=== PATIENT | female | born 1950 | race Caucasian/White ===

== ENCOUNTER 2019-05-27 15:11 | Emergency (ER) | payer MEDICARE, OTHER, SELFPAY ==
[2019-05-27 15:25] VITALS: BP 146/83; PULSE 84; RESP 24; TEMP 36.6; O2SAT 93; BMI 36.6
--- NOTE | 2019-05-27 15:33 | DI.RAD.S_ITS ---
PROCEDURE: XR CHEST 2V INDICATIONS: shortness of breath TECHNIQUE: 2 views of the chest were acquired. COMPARISON: [facility], CT, CHEST WITH CONTRAST, 10/22/2005, 11:24. FINDINGS: Surgical changes and devices: Lumbar fixation hardware is partially seen. Lungs and pleura: Mild, streaky opacities are seen at the lung bases. Interstitial prominence is seen. No pleural effusions or pneumothorax. Mediastinum: Mediastinal contours are normal. Heart size is normal. Bones and chest wall: No suspicious bony abnormalities. Age-appropriate bony degenerative changes are seen. Soft tissues appear unremarkable. IMPRESSION: Interstitial prominence is seen throughout. The interstitial prominence is nonspecific, yet may be related to pulmonary edema. Dictated by: Lee Silverio M.D. on 05/27/2019 at 15:30 Approved by: Lee Silverio M.D. on 05/27/2019 at 15:31
[2019-05-27 15:39] VITALS: BP 158/78; PULSE 78; RESP 24; O2SAT 96
[2019-05-27 15:58] LABS: Add Manual Diff / Slide Review NO; Basophils Absolute Auto 100 /uL (0-100); Basophils Percent Auto 1.1 % (0-2); Eosinophils Absolute Auto 300 /uL (0-450); Eosinophils Percent Auto 4.2 % (2-4); Hematocrit 38.4 % (36-46); Hemoglobin 12.8 g/dL (12.0-16.0); Lymphocytes Absolute Auto 1800 /uL (1100-4500); Lymphocytes Percent Auto 29.4 % (25-40); Mean Corpuscular HGB Conc 33.4 % (30-36); Mean Corpuscular Hemoglobin 29.2 PG (26-34); Mean Corpuscular Volume 87.3 fL (80-100); Monocytes Absolute Auto 500 /uL (0-900); Monocytes Percent Auto 8.8 % (3-14); Neutrophils Absolute Auto 3500 /uL (1500-7000); Neutrophils Percent Auto 56.5 % (50-75); Platelet Count 254 X10^3/uL (150-400); Red Cell Distribution Width 13.3 % (11.6-14.8); White Blood Cell Count 6.1 X10^3/uL (4.5-11.0)
--- NOTE | 2019-05-27 15:59 | ED_ITS ---
HPI - SOB/Dyspnea General Chief Complaint: Shortness of Breath/Dyspnea Stated Complaint: cant breath Time Seen by Provider: 05/27/19 15:44 Source: patient Mode of arrival: ambulatory Limitations: no limitations History of Present Illness Patient is a 69-year-old female with history of mycoplasma pneumonia in 2002, she has had persistent shortness of breath since and. She was previously on Biaxin daily and till 2014 she says that is when she felt the best. She saw server security administrator in [place] who refused her back on antibiotics daily. She presents today because she feels as though she has been having fevers chills and sweats she says for a month. She has a book documented of a temperature every single day. She actually is noted to have fever of 101 twice over the last week. She says that she has a mild productive cough and sometimes coughs up yellow sputum. Her breathing is better when she is lying flat and worse when she is sitting up. She has no chest pain. MD Complaint: shortness of breath and cough Relieving factors: other (Lying flat) Exacerbating factors: exertion Related Data Home Medications Medication Instructions Recorded Confirmed acetaminophen 325 mg PO TID #0 06/17/16 albuterol sulfate [Ventolin HFA] 1 puff INH Q4HP PRN #0 06/17/16 celecoxib 200 mg PO BIDCC #0 cap 06/17/16 cholecalciferol (vitamin D3) 50,000 unit PO QWEEK #0 cap 06/17/16 clonazepam [Klonopin] 0.5 mg PO TID #0 06/17/16 conjugated estrogens [Premarin] 0.3 mg PO QDAY #30 tab 06/17/16 levothyroxine [Synthroid] 50 mcg PO QAM #0 tab 06/17/16 liothyronine [Cytomel] 10 mcg PO QDAY #0 tab 06/17/16 pregabalin [Lyrica] 100 mg PO HS #0 06/17/16 Previous Rx's Medication Instructions Recorded doxycycline hyclate 100 mg PO BID #14 cap 05/27/19 Allergies Allergy/AdvReac Type Severity Reaction Status Date / Time adhesive [ADHESIVE] Allergy Unknown RASH Verified 05/27/19 15:25 rofecoxib [From VIOXX] Allergy Unknown MY LEGS Verified 05/27/19 15:25 FELT LIKE THEY COULDNT MOVE Sulfa (Sulfonamide Allergy Unknown RASH Verified 05/27/19 15:25 Antibiotics) [SULFA (SULFONAMIDE ANTIBIOTICS)] Review of Systems Review of Systems GENERAL: Denies chills, fatigue, malaise, fever, sweats, travel HEENT: Denies sinus pain, ear pain, sore throat, difficulty swallowing, neck pain RESPIRATORY: See HPI CARDIOVASCULAR: Denies chest pain, palpitations, orthopnea, edema GASTROINTESTINAL: Denies nausea, vomiting, abdominal pain, diarrhea, constipation, melena. : Denies dysuria, frequency, incontinence, hematuria, urinary retention, flank pain. MUSCULOSKELETAL: Denies weakness, joint pain, or bony pain SKIN: No rash, no erythema, no pruritus NEUROLOGIC: Denies weakness, dizziness, headache, numbness, change in speech, confusion PSYCHIATRIC: No concerning psychosocial issues. 12 point review of systems is negative except for those stated above and HPI [facility] Medical History Mycoplasma infection (Acute) Social History Smoking Status: Former smoker Social History Smoking Status: Former smoker Exam Initial Vital Signs Initial Vital Signs: Vital Signs Temperature 97.8 F 05/27/19 15:25 Pulse Rate 84 05/27/19 15:25 Respiratory Rate 24 05/27/19 15:25 Blood Pressure 146/83 H 05/27/19 15:25 Pulse Oximetry 93 05/27/19 15:25 GENERAL: Well-appearing, lying flat HEENT: Head atraumatic,EOMI, pupils reactive, face symmetric, moist mucous membr anes CARDIOVASCULAR: Regular rate and rhythm without murmurs, rubs or gallops. RESPIRATORY: Rales right-sided no respiratory distress no wheezes speaks in full sentences ABDOMEN: Soft, nontender. Normoactive bowel sounds all 4 quadrants. No guarding or rebound. EXTREMITIES: Normal range of motion, no clubbing or edema. Neurovascularly intact NEUROLOGICAL: Alert and oriented x4.Normal gait and speech. Cranial nerves II through XII grossly intact. SKIN: Warm, dry, no laceration, no petechiae, no rashes or lesions. Course Orders Ordered: ED Orders 05/27/19 15:33 XR chest 2V Stat EKG-12 Lead Stat Measure peak expiratory flow ONCE RT Consult Eval and Treat Now 05/27/19 15:40 B Type Natriuretic Peptide Stat Complete Blood Count AUTO DIFF Stat Comprehensive Metabolic Panel Stat Lactate (Lactic Acid) Stat Troponin & CK Cardiac Panel Stat Discontinued Medications Doxycycline Hyclate (Vibramycin) 100 mg PO NOW ONE Stop: 05/27/19 17:49 Last Admin: 05/27/19 17:54 Dose: 100 mg Vital Signs - 8 hr 05/27/19 15:25 05/27/19 15:39 05/27/19 17:30 Temperature 97.8 F Pulse Rate 84 78 70 Respiratory Rate 24 24 22 Blood Pressure 146/83 H Blood Pressure [Right Arm] 158/78 H 160/70 H Pulse Oximetry 93 96 95 05/27/19 17:57 Temperature Pulse Rate 70 Respiratory Rate 18 Blood Pressure 160/70 H Blood Pressure [Right Arm] Pulse Oximetry 94 MDM - SOB/Dyspnea Lab Data Attestation: I reviewed the patient's lab results. Result diagrams: 05/27/19 15:40 05/27/19 15:40 Lab Results 05/27/19 05/27/19 05/27/19 Range/Units 15:40 15:40 15:40 WBC 6.1 (4.5-11.0) X10^3/uL RBC 4.40 (4.0-5.2) X10^6/uL Hgb 12.8 (12.0-16.0) g/dL Hct 38.4 (36-46) % MCV 87.3 (80-100) fL MCH 29.2 (26-34) PG MCHC 33.4 (30-36) % RDW 13.3 (11.6-14.8) % Plt Count 254 (150-400) X10^3/uL Neut % (Auto) 56.5 (50-75) % Lymph % (Auto) 29.4 (25-40) % Collin % (Auto) 8.8 (3-14) % Eos % (Auto) 4.2 H (2-4) % Baso % (Auto) 1.1 (0-2) % Neut # (Auto) 3500 (8823-3744) /uL Lymph # (Auto) 1800 (5270-0222) /uL Collin # (Auto) 500 (0-900) /uL Eos # (Auto) 300 (0-450) /uL Baso # (Auto) 100 (0-100) /uL Sodium 142 (137-145) mmol/L Potassium 4.0 (3.4-5.1) mmol/L Chloride 105 (98-107) mmol/L Carbon Dioxide 28 (22-32) mmol/L BUN 15 (7-17) mg/dL Creatinine 0.90 (0.52-1.04) mg/dL Estimated GFR > 60.0 (>60) mL/min BUN/Creatinine Ratio 16.7 (6-22) Glucose 101 (80-110) mg/dL Lactate 1.0 (0.7-2.1) mmol/L Calcium 10.1 (8.4-10.2) mg/dL Total Bilirubin 0.4 (0.2-1.3) mg/dL AST 33 (14-36) IU/L ALT 26 (9-52) IU/L Alkaline Phosphatase 97 (38-126) U/L Total Creatine Kinase (30-135) U/L CK-MB (CK-2) CK-MB (CK-2) Rel Index Troponin I (0.01-0.034) ng/mL B-Natriuretic Peptide < 100 (<100) Total Protein 8.1 (6.3-8.2) g/dL Albumin 4.4 (3.5-5.0) g/dL Globulin 3.7 (1.7-4.1) g/dL Albumin/Globulin Ratio 1.2 (1.0-2.8) 05/27/19 Range/Units 15:40 WBC (4.5-11.0) X10^3/uL RBC (4.0-5.2) X10^6/uL Hgb (12.0-16.0) g/dL Hct (36-46) % MCV (80-100) fL MCH (26-34) PG MCHC (30-36) % RDW (11.6-14.8) % Plt Count (150-400) X10^3/uL Neut % (Auto) (50-75) % Lymph % (Auto) (25-40) % Collin % (Auto) (3-14) % Eos % (Auto) (2-4) % Baso % (Auto) (0-2) % Neut # (Auto) (3107-1069) /uL Lymph # (Auto) (2943-4400) /uL Collin # (Auto) (0-900) /uL Eos # (Auto) (0-450) /uL Baso # (Auto) (0-100) /uL Sodium (137-145) mmol/L Potassium (3.4-5.1) mmol/L Chloride (98-107) mmol/L Carbon Dioxide (22-32) mmol/L BUN (7-17) mg/dL Creatinine (0.52-1.04) mg/dL Estimated GFR (>60) mL/min BUN/Creatinine Ratio (6-22) Glucose (80-110) mg/dL Lactate (0.7-2.1) mmol/L Calcium (8.4-10.2) mg/dL Total Bilirubin (0.2-1.3) mg/dL AST (14-36) IU/L ALT (9-52) IU/L Alkaline Phosphatase (38-126) U/L Total Creatine Kinase 44 (30-135) U/L CK-MB (CK-2) TNP CK-MB (CK-2) Rel Index TNP Troponin I < 0.012 (0.01-0.034) ng/mL B-Natriuretic Peptide (<100) Total Protein (6.3-8.2) g/dL Albumin (3.5-5.0) g/dL Globulin (1.7-4.1) g/dL Albumin/Globulin Ratio (1.0-2.8) Imaging Data Chest x-ray: Radiologist's impression: PROCEDURE: XR CHEST 2V INDICATIONS: shortness of breath TECHNIQUE: 2 views of the chest were acquired. COMPARISON: [facility], CT, CHEST WITH CONTRAST, 10/22/2005, 11:24. FINDINGS: Surgical changes and devices: Lumbar fixation hardware is partially seen. Lungs and pleura: Mild, streaky opacities are seen at the lung bases. Interstitial prominence is seen. No pleural effusions or pneumothorax. Mediastinum: Mediastinal contours are normal. Heart size is normal. Bones and chest wall: No suspicious bony abnormalities. Age-appropriate bony degenerative changes are seen. Soft tissues appear unremarkable. IMPRESSION: Interstitial prominence is seen throughout. The interstitial prominence is nonspecific, yet may be related to pulmonary edema. Dictated by: Lee Silverio M.D. on 05/27/2019 at 15:30 ECG Data Attestation: I personally reviewed and interpreted this ECG as follows: Prior ECG tracings: not available for review Interpretation: Minus rhythm rate 75 here [place] [address] changes no T-wave inversions no priors to compare MDM Narrative Medical decision making narrative: Patient overall is not septic there is no acute pneumonia. She does have documented fever of 101 in her book. I will put her on doxycycline which should cover mycoplasma and other atypical pneumonia. At this time she is not septic. Discharge Plan Departure Patient Disposition: Home Clinical Impression: Atypical pneumonia Discharge Date/Time: 05/27/19 17:59 Interventions: ED Discharge Assessment Last Done: 05/27/19 17:57 Instructions: Atypical Pneumonia Activity Restrictions/Additional Instructions: *You have been diagnosed with atypical pneumonia *What to do: At this time blood work is reassuring x-ray is also clear. Antibiotic will cover for mycoplasma and other organisms *Continue to take medications as directed Doxycycline 100 mg twice a day for 7 days *Follow up with your primary care provider in 2-3 days *Return to ER if you should have increasing shortness of breath, fevers, weakness or any new, worsening or concerning symptoms Prescriptions: New doxycycline hyclate 100 mg capsule 100 mg PO BID Qty: 14 RF: 0 No Action celecoxib 200 MG capsule 200 mg PO BIDCC Qty: 0 RF: 0 clonazepam [Klonopin] 0.5 MG tablet 0.5 mg PO TID Qty: 0 RF: 0 pregabalin [Lyrica] 100 MG capsule 100 mg PO HS Qty: 0 RF: 0 cholecalciferol (vitamin D3) 50,000 UNIT capsule 50,000 unit PO QWEEK Qty: 0 RF: 0 liothyronine [Cytomel] 5 MCG tablet 10 mcg PO QDAY Qty: 0 RF: 0 levothyroxine [Synthroid] 50 MCG tablet 50 mcg PO QAM Qty: 0 RF: 0 albuterol sulfate [Ventolin HFA] 90 MCG/PUFF HFA aerosol inhaler 1 puff INH Q4HP PRNQty: 0 RF: 0 conjugated estrogens [Premarin] 0.3 MG tablet 0.3 mg PO QDAY Qty: 30 RF: 0 acetaminophen 325 MG tablet 325 mg PO TID Qty: 0 RF: 0 Referrals: Brandi Nina DO [Primary Care Provider] -
[2019-05-27 16:09] LABS: Alanine Aminotransferase 26 IU/L (9-52); Albumin 4.4 g/dL (3.5-5.0); Albumin Globulin Ratio 1.2 (1.0-2.8); Alkaline Phosphatase 97 U/L (38-126); Aspartate Aminotransferase 33 IU/L (14-36); BUN Creatinine Ratio 16.7 (6-22); Bilirubin Total 0.4 mg/dL (0.2-1.3); Blood Urea Nitrogen 15 mg/dL (7-17); Calcium 10.1 mg/dL (8.4-10.2); Carbon Dioxide 28 mmol/L (22-32); Chloride 105 mmol/L (98-107); Estimated Glomerular Filt Rate > 60.0 mL/min (>60); Globulin 3.7 g/dL (1.7-4.1); Glucose 101 mg/dL (80-110); HEMOLYSIS < 15 (0-50); Sodium 142 mmol/L (137-145); Total Protein 8.1 g/dL (6.3-8.2)
[2019-05-27 16:29] LABS: B Type Natriuretic Peptide < 100 (<100)
[2019-05-27 17:20] LABS: Creatine Kinase 44 U/L (30-135)
[2019-05-27 17:30] VITALS: BP 160/70; PULSE 70; RESP 22; O2SAT 95
[2019-05-27 17:33] LABS: Troponin I < 0.012 ng/mL (0.01-0.034)
[2019-05-27] MEDS: DOXYCYCLINE HYCLATE 100 MG TABLET PO (17:54)
[2019-05-27 17:57] VITALS: BP 160/70; PULSE 70; RESP 18; O2SAT 94
== END 2019-05-27 17:59 | disposition home or self-care (01) ==
PROVIDERS: Emergency Provider Emergency Medicine; PCP Family Medicine
DX: J18.9 Pneumonia, unspecified organism (principal); R06.02 Shortness of breath
CPT/HCPCS: 36591; 71046; 80053; 82550; 83605; 83880; 84484; 85025; 93005; 99283; 99285

== ENCOUNTER 2019-09-20 16:08 | Emergency (ER) | payer MEDICARE, OTHER, SELFPAY ==
[2019-09-20 16:10] VITALS: BP 198/79; PULSE 62; RESP 18; TEMP 36.6; O2SAT 99; BMI 36.8
--- NOTE | 2019-09-20 16:48 | DI.RAD.S_ITS ---
PROCEDURE: XR FINGER LT MIN 2V INDICATIONS: L index finger puncture wound TECHNIQUE: AP hand, 2 views of the left index finger(s) acquired. COMPARISON: None. FINDINGS: Bones: No acute fractures or dislocations. No suspicious bony lesions. Background degenerative changes of the distal interphalangeal joint are noted. Soft tissues: There is soft tissue swelling of the left index finger most pronounced near the tip of the finger without evidence for soft tissue gas or radiopaque soft tissue foreign body. No suspicious soft tissue calcifications. IMPRESSION: Left index finger soft tissue swelling without radiopaque soft tissue foreign bodies identified. No acute osseous abnormality seen. Dictated by: Jose J Trent M.D. on 09/20/2019 at 17:24 Approved by: Jose J Trent M.D. on 09/20/2019 at 17:26
--- NOTE | 2019-09-20 18:04 | ED_ITS ---
HPI - Wound/Laceration <Rivka Garcia COMMISSIONING MANAGER - Last Filed: 09/20/19 20:14> General Chief Complaint: Wound/Laceration Stated Complaint: cut finger- left index Time Seen by Provider: 09/20/19 16:48 Source: patient Mode of arrival: Family Vehicle Limitations: no limitations History of Present Illness HPI narrative: 69-year-old female presents emergency department as requested by the clinic for an x-ray to her finger. She states she was cutting the spine out of a turkey when she stepped the knife through her left index finger. She states the wrist taking a knife when she stubbed her finger. Bleeding controlled, she denies any numbness or tingling. Patient denies any erythema, as if, vomiting, diarrhea, fevers, chills, other concerns. Patient states she is up-to-date on her Tdap. Related Data Home Medications Medication Instructions Recorded Confirmed acetaminophen 325 mg PO TID #0 06/17/16 albuterol sulfate [Ventolin HFA] 1 puff INH Q4HP PRN #0 06/17/16 celecoxib 200 mg PO BIDCC #0 cap 06/17/16 cholecalciferol (vitamin D3) 50,000 unit PO QWEEK #0 cap 06/17/16 clonazepam [Klonopin] 0.5 mg PO TID #0 06/17/16 conjugated estrogens [Premarin] 0.3 mg PO QDAY #30 tab 06/17/16 levothyroxine [Synthroid] 50 mcg PO QAM #0 tab 06/17/16 liothyronine [Cytomel] 10 mcg PO QDAY #0 tab 06/17/16 pregabalin [Lyrica] 100 mg PO HS #0 06/17/16 Previous Rx's Medication Instructions Recorded doxycycline hyclate 100 mg PO BID #14 cap 05/27/19 cephalexin 500 mg PO QID 7 Days #28 cap 09/20/19 Allergies Allergy/AdvReac Type Severity Reaction Status Date / Time adhesive [ADHESIVE] Allergy Unknown RASH Verified 09/20/19 16:52 rofecoxib [From VIOXX] Allergy Unknown MY LEGS Verified 09/20/19 16:52 FELT LIKE THEY COULDNT MOVE Sulfa (Sulfonamide Allergy Unknown RASH Verified 09/20/19 16:52 Antibiotics) [SULFA (SULFONAMIDE ANTIBIOTICS)] Review of Systems <LOGAN Arnold - Last Filed: 09/20/19 20:14> Review of Systems Narrative: REVIEW OF SYSTEMS: GENERAL: Denies fever or chills. HENT: Denies head trauma. EYE: Denies double vision or vision loss. CARDIOVASCULAR: Denies syncope. MUSCULOSKELETAL: Denies weakness, or deformities. INTEGUMENTARY: Complains of laceration to finger, see HPI. NEURO: Denies numbness or tingling. Patient History <LOGAN Arnold - Last Filed: 09/20/19 20:14> Medical History Mycoplasma infection (Acute) Social History Smoking Status: Former smoker alcohol intake frequency: 0-2 drinks per day Substance Use Type: does not use Exam <LOGAN Arnold - Last Filed: 09/20/19 20:14> Initial Vital Signs Initial Vital Signs: Vital Signs Temperature 98 F 09/20/19 16:10 Pulse Rate 62 09/20/19 16:10 Respiratory Rate 18 09/20/19 16:10 Blood Pressure 198/79 H 09/20/19 16:10 Pulse Oximetry 99 09/20/19 16:10 PHYSICAL EXAMINATION: GENERAL: Well groomed, alert, and cooperative. Answers questions promptly and appropriately. Vital signs noted. HENT: Normocephalic, atraumatic. RESPIRATORY: Normal respiratory rate, trachea midline, airway patent. No stridor, nasal flaring or accessory muscle use. MUSCULOSKELETAL: Normal gait and coordination. Equal tone and mass bilaterally. EXTREMITIES: CMS intact. Moves all extremities. SKIN: Warm, dry, soft, appropriate color for ethnicity. There is a 1.5 cm laceration noted to lateral and medial aspect of finger, no bleeding during examination. There is a 1 cm laceration noted to the top of left index finger. Ecchymosis noted to tip of finger, full range of motion against resistance for DIP and MIP joint. NEURO: Alert and Oriented X 3. Good coordination. PSYCH: Appropriate affect and mood. <Mimi Reilly DO - Last Filed: 09/22/19 08:08> Initial Vital Signs Initial Vital Signs: Vital Signs Temperature 98 F 09/20/19 16:10 Pulse Rate 62 09/20/19 16:10 Respiratory Rate 18 09/20/19 16:10 Blood Pressure 198/79 H 09/20/19 16:10 Pulse Oximetry 99 09/20/19 16:10 Course <LOGAN Arnold - Last Filed: 09/20/19 20:14> Course Course Narrative: Patient's wound was irrigated with 300ml of normal saline. The area was repaired with Steri-Strips, splint was placed on the wound and it was dressed with gauze. She was given a dose of antibiotics in the emergency department. Orders Ordered: Discontinued Medications Cephalexin HCl (Keflex) 500 mg PO NOW ONE Stop: 09/20/19 18:56 Last Admin: 09/20/19 19:15 Dose: 500 mg Documented by: LEYDA Consultations Consultation #1: Patient staffed with Dr. Reilly. Vital Signs Vital signs: Vital Signs - 8 hr 09/20/19 16:10 09/20/19 19:35 Temperature 98 F Pulse Rate 62 66 Respiratory Rate 18 16 Blood Pressure 198/79 H 148/75 H Pulse Oximetry 99 99 <Mimi Reilly DO - Last Filed: 09/22/19 08:08> Orders Ordered: Discontinued Medications Cephalexin HCl (Keflex) 500 mg PO NOW ONE Stop: 09/20/19 18:56 Last Admin: 09/20/19 19:15 Dose: 500 mg Documented by: LEYDA Vital Signs Vital signs: Vital Signs - 8 hr 09/20/19 16:10 09/20/19 19:35 Temperature 98 F Pulse Rate 62 66 Respiratory Rate 18 16 Blood Pressure 198/79 H 148/75 H Pulse Oximetry 99 99 MDM - Wound/Laceration <LOGAN Arnold - Last Filed: 09/20/19 20:14> Medical Records Attestation: I reviewed the patient's medical records. Lab Data Attestation: I reviewed the patient's lab results. Imaging Data Finger XR: Radiologist's impression: [address] [address] XRay Report Signed Patient: Jocelin Lopez [facility]#: [id number] : 1Acct:[id number] Age/Sex: 69 / FDate of Service: 09/20/19 Loc: ED Accession Number: [id number] Procedure: XR finger LT min 2V Ordering Provider: Rivka Garcia PROCEDURE: XR FINGER LT MIN 2V INDICATIONS: L index finger puncture wound TECHNIQUE: AP hand, 2 views of the left index finger(s) acquired. COMPARISON: None. FINDINGS: Bones: No acute fractures or dislocations. No suspicious bony lesions. Background degenerative changes of the distal interphalangeal joint are noted. Soft tissues: There is soft tissue swelling of the left index finger most pronounced near the tip of the finger without evidence for soft tissue gas or radiopaque soft tissue foreign body. No suspicious soft tissue calcifications. IMPRESSION: Left index finger soft tissue swelling without radiopaque soft tissue foreign bodies identified. No acute osseous abnormality seen. Dictated by: Jose J Trent M.D. on 09/20/2019 at 17:24 Approved by: Jose J Trent M.D. on 09/20/2019 at 17:26 [facility] Narrative Medical decision making narrative: This is a 69-year-old female who presents emergency department complaining of a puncture wound to her left index finger. X-ray shows no foreign bodies or fractures. Wound was irrigated extensively. It is possible she may lose some skin due to the nature of the injury. Tendon injury not suspected as she has full range of motion against resistance. Due to the puncture wound, patient was started on cephalexin to prevent infection and wound was closed with Steri-Strips. Tube gauze was placed over the finger, a patient was given a finger splint. She was counseled extensively to follow up with her primary care provider in the next few weeks for re-evaluation. ED/Return precautions given for new or worsening symptoms. Discharge Plan Departure Patient Disposition: Home Clinical Impression: Laceration Discharge Date/Time: 09/20/19 19:36 Instructions: DI for Laceration Repair Activity Restrictions/Additional Instructions: Thank you for entrusting me with your care today. As discussed, your laceration was repaired with Steri-Strips. Please leave these in place, they will fall off on their own. Leave the dressing in place for the next 24 hours. After that, you may remove and redressed the wound. Please follow up with her primary care provider in the next week for re-evaluation. Continue to monitor your wound for symptoms of infection such as increased erythema, pus, or other concerns. Take antibiotics as directed. Prescriptions: New cephalexin 500 mg capsule 500 mg PO QID 7 Days Qty: 28 RF: 0 No Action celecoxib 200 MG capsule 200 mg PO BIDCC Qty: 0 RF: 0 clonazepam [Klonopin] 0.5 MG tablet 0.5 mg PO TID Qty: 0 RF: 0 pregabalin [Lyrica] 100 MG capsule 100 mg PO HS Qty: 0 RF: 0 cholecalciferol (vitamin D3) 50,000 UNIT capsule 50,000 unit PO QWEEK Qty: 0 RF: 0 liothyronine [Cytomel] 5 MCG tablet 10 mcg PO QDAY Qty: 0 RF: 0 levothyroxine [Synthroid] 50 MCG tablet 50 mcg PO QAM Qty: 0 RF: 0 albuterol sulfate [Ventolin HFA] 90 MCG/PUFF HFA aerosol inhaler 1 puff INH Q4HP PRNQty: 0 RF: 0 conjugated estrogens [Premarin] 0.3 MG tablet 0.3 mg PO QDAY Qty: 30 RF: 0 acetaminophen 325 MG tablet 325 mg PO TID Qty: 0 RF: 0 doxycycline hyclate 100 mg capsule 100 mg PO BID Qty: 14 RF: 0 Referrals: Brandi Nina DO [Primary Care Provider] -
[2019-09-20] MEDS: cephALEXin 250 MG CAPSULE 500 MG PO (19:15)
[2019-09-20 19:35] VITALS: BP 148/75; PULSE 66; RESP 16; O2SAT 99
== END 2019-09-20 19:36 | disposition home or self-care (01) ==
PROVIDERS: Emergency Provider Nurse Practitioner; PCP Family Medicine
DX: S61.211A Laceration without foreign body of left index finger without damage to nail, initial encounter (principal); W26.0XXA Contact with knife, initial encounter
CPT/HCPCS: 73140; 99283

== ENCOUNTER → 2020-03-14 13:37 | Outpatient (CLI) | payer MEDICARE, OTHER, SELFPAY ==
--- NOTE | 2020-03-14 | DI.CT.S_ITS ---
PROCEDURE: CT CHEST WO CON INDICATIONS: Cough TECHNIQUE: Noncontrast 5 mm thick sections acquired from the pulmonary apices to the posterior costophrenic angles. 1 mm lung window, 5 mm thick coronal and sagittal and 7 mm axial MIP reformats were then acquired. For radiation dose reduction, the following was used: automated exposure control, adjustment of mA and/or kV according to patient size. COMPARISON: None. FINDINGS: Image quality: Excellent. Lungs and pleura: No acute air space opacities. No pleural effusions or pneumothorax. Central and peripheral airways are patent and normal in caliber. Mediastinum: Heart size is normal. No pericardial effusion. No mediastinal adenopathy by size criteria. Thoracic aorta and central pulmonary arteries are normal in size. Esophagus is normal in caliber. No hiatal hernia. Bones and chest wall: No suspicious bony lesions. No vertebral body compression fractures. No axillary or supraclavicular adenopathy by size criteria. Thyroid gland is not well-seen. Abdomen: Visualized upper abdominal solid organs and bowel loops appear normal in the absence of contrast. IMPRESSION: No pneumonia found. No endobronchial mass or inflammation identified. A definite source of cough is not seen. Dictated by: Stephon Davis M.D. on 03/14/2020 at 15:23 Approved by: Stephon Davis M.D. on 03/14/2020 at 15:24
== END ==
PROVIDERS: PCP Family Medicine; Referring Provider Family Medicine; Visit Provider Family Medicine
DX: R05 Cough (principal)
CPT/HCPCS: 71250

== ENCOUNTER 2022-07-29 23:39 | Inpatient (IN) | payer MEDICARE, OTHER, SELFPAY ==
--- NOTE | 2022-07-29 23:46 | DI.RAD.S_ITS ---
PROCEDURE: XR CHEST 1V INDICATIONS: fever TECHNIQUE: One view of the chest was acquired. COMPARISON: [facility], CR, XR CHEST 2V, 05/27/2019, 16:11. FINDINGS: Surgical changes and devices: None. Lungs and pleura: Lungs are clear. No pleural effusions or pneumothorax. Mediastinum: Mediastinal contours appear normal. Heart size is normal. Bones and chest wall: No suspicious bony lesions. Overlying soft tissues appear unremarkable. IMPRESSION: Reduced inspiratory volume, no definite acute disease. Dictated by: Stephon Davis M.D. on 07/30/2022 at 0:58 Approved by: Stephon Davis M.D. on 07/30/2022 at 0:59
[2022-07-29 23:50] VITALS: BP 132/60; PULSE 95; RESP 15; TEMP 39.7; O2SAT 94; BMI 40.7
[2022-07-30] VITALS (18 sets, daily range): BP systolic 105–169; BP diastolic 55–74; PULSE 75–96; RESP 16–32; TEMP 36–37.3; O2SAT 96–99; BMI 36.1
--- NOTE | 2022-07-30 00:09 | DI.CT.S_ITS ---
PROCEDURE: CT HEAD/BRAIN WO CON INDICATIONS: fall confusion TECHNIQUE: Noncontrast 4.5 mm thick angled axial sections acquired from the foramen magnum to the vertex, with coronal and sagittal reformats. For radiation dose reduction, the following was used: automated exposure control, adjustment of mA and/or kV according to patient size. COMPARISON: None. FINDINGS: Image quality: Excellent. CSF spaces: Basal cisterns are patent. No extra-axial fluid collections. The ventricles are symmetric in size and shape. Brain: No intracranial bleeds or masses. There is cerebral volume loss for age, with resultant ventricular and sulcal prominence. There are periventricular and deep white matter chronic small vessel ischemic changes. There is intracranial internal carotid artery atherosclerosis. Skull and face: Calvarium and visualized facial bones appear intact, without suspicious lesions. Sinuses: Visualized sinuses and mastoids are clear. IMPRESSION: No trauma found. Dictated by: Stephon Davis M.D. on 07/30/2022 at 0:56 Approved by: Stephon Davis M.D. on 07/30/2022 at 0:57
--- NOTE | 2022-07-30 00:09 | DI.CT.S_ITS ---
PROCEDURE: CT CERVICAL SPINE WO CON INDICATIONS: fall pain TECHNIQUE: Noncontrast 3 mm thick sections acquired from the skull base to the T4 level. Sagittal and coronal reformats were then constructed. For radiation dose reduction, the following was used: automated exposure control, adjustment of mA and/or kV according to patient size. COMPARISON: None. FINDINGS: Image quality: Excellent. Bones: No fractures or dislocations. Visualized superior ribs are intact. Soft tissues: Prevertebral soft tissues are normal in thickness. No paravertebral hematomas. No apical pneumothoraces. IMPRESSION: No trauma found. Dictated by: Stephon Davis M.D. on 07/30/2022 at 0:55 Approved by: Stephon Davis M.D. on 07/30/2022 at 0:56
--- NOTE | 2022-07-30 00:30 | ED.FEVER ---
HPI - Fever General Chief Complaint: Fever Stated Complaint: Confusion/Lethargy Time Seen by Provider: 07/29/22 23:43 History of Present Illness HPI Narrative: Patient is a 72-year-old female history history of hypothyroid frequent UTIs, chronic pain presenting today with confusion and weakness. states that yesterday she was doing okay but this evening all about very weak and confused requiring EMS transport. Patient is obviously confused but awake and alert. Apparently carotids door came down on her head in May she has been having ongoing head pain and neck pain since then. She says she was seen by her doctor but no evaluation. She is currently febrile with a temperature of 103? and stable vitals. She really denies any abdominal pain nausea vomiting. She has no chest pain or shortness of breath. She states she does have a history of asthma she has not noticed any worsening breathing problems. Patient is talking about metal in her head and how it has been there for very long time. Related Data Home Medications Medication Instructions Recorded Confirmed celecoxib 200 mg capsule 200 mg PO BIDCC #0 caps 06/17/16 07/30/22 clonazepam 0.5 mg tablet (Klonopin) 0.5 mg PO TID ##0 06/17/16 07/30/22 liothyronine 5 mcg tablet (Cytomel) 5 mcg PO QDAY #0 tabs 06/17/16 07/30/22 acetaminophen 325 mg tablet 325 mg PO QID PRN pain 07/30/22 07/30/22 baclofen 20 mg tablet 20 mg PO DAILY 07/30/22 07/30/22 hydroxychloroquine 400 mg PO DAILY 07/30/22 07/30/22 levothyroxine 75 mcg capsule 37.5 mcg PO DAILY 07/30/22 07/30/22 levothyroxine 75 mcg tablet 75 mcg PO DAILY 07/30/22 07/30/22 nifedipine 10 mg capsule 10 mg PO TID PRN Raynaud's 07/30/22 07/30/22 prednisone 10 mg tablet 10 mg PO DAILY 07/30/22 07/30/22 pregabalin 75 mg capsule 75 mg PO QPM 07/30/22 07/30/22 Allergies Allergy/AdvReac Type Severity Reaction Status Date / Time adhesive [ADHESIVE] Allergy Unknown RASH Verified 07/30/22 00:21 rofecoxib [From VIOXX] Allergy Unknown MY LEGS Verified 07/30/22 00:21 FELT LIKE THEY COULDNT MOVE Sulfa (Sulfonamide Allergy Unknown RASH Verified 07/30/22 00:21 Antibiotics) [SULFA (SULFONAMIDE ANTIBIOTICS)] Review of Systems Review of Systems Narrative: GENERAL: + fever, +weakness HEENT: Denies sinus pain, ear pain, sore throat, difficulty swallowing, neck pain RESPIRATORY: Denies dyspnea, cough, wheezing, hemoptysis, sputum. CARDIOVASCULAR: Denies chest pain, palpitations, orthopnea, edema GASTROINTESTINAL: Denies nausea, vomiting, abdominal pain, diarrhea, constipation, melena. : frequent UTI MUSCULOSKELETAL: Denies weakness, joint pain, or bony pain SKIN: No rash, no erythema, no pruritus NEUROLOGIC: Denies weakness, dizziness, headache, numbness, change in speech, confusion PSYCHIATRIC: No concerning psychosocial issues. 12 point review of systems is negative except for those stated above and HPI Patient History Medical History Mycoplasma infection Social History household members: spouse and children Smoking Status: Former smoker alcohol intake: former Smoking Status: Former smoker alcohol intake frequency: 0-2 drinks per day Substance Use Type: does not use Exam Initial Vital Signs Initial Vital Signs: Vital Signs Temperature 103.5 F H 07/29/22 23:50 Pulse Rate 95 H 07/29/22 23:50 Respiratory Rate 15 07/29/22 23:50 Blood Pressure 132/60 07/29/22 23:50 Pulse Oximetry 94 07/29/22 23:50 Oxygen Delivery Method 07/29/22 23:50 GENERAL: Alert confused 72-year-old female HEENT: Head atraumatic,EOMI, pupils reactive, face symmetric, [moist] mucous membranes Neck is supple no meningeal signs CARDIOVASCULAR: Regular rate and rhythm without murmurs, rubs or gallops. RESPIRATORY: Breath sounds equal bilaterally, no wheezes rales or rhonchi. ABDOMEN: Soft, nontender. Normoactive bowel sounds all 4 quadrants. No guarding or rebound. EXTREMITIES: Normal range of motion, no clubbing or edema. Neurovascularly intact NEUROLOGICAL: Alert and oriented x3.Normal gait and speech. No focal deficits no slurring of speech SKIN: Warm, dry, no laceration, no petechiae, no rashes or lesions. Course Orders Ordered: ED Orders 07/29/22 23:46 XR chest 1V Stat 07/29/22 23:50 Blood Culture Stat Complete Blood Count AUTO DIFF Stat Comprehensive Metabolic Panel Stat Lactate (Lactic Acid) Stat Procalcitonin Stat Troponin & CK Cardiac Panel Stat 07/29/22 23:59 EKG-12 Lead Stat 07/30/22 00:09 CT cervical spine wo con Stat CT head/brain wo con Stat 07/30/22 00:26 Urinalysis and Microscopic Stat Urine Culture Stat 07/30/22 00:32 COVID19 -Nasal RAPID/Pre-Proc Stat 07/30/22 00:50 TSH [Thyroid Stimulating Hormone] Stat Acetaminophen (Acetaminophen 325 Mg Tablet) 650 mg PO Q6HR PRN PRN Reason: Fever/Mild Pain (1-3) Enoxaparin Sodium (Enoxaparin 40 Mg/0.4 Ml Syringe) 40 mg SUBCUT DAILY ORALIA Sodium Chloride (Normal Saline 0.9%) 1,000 mls @ 150 mls/hr IV CONT ORALIA Last Admin: 07/30/22 05:54 Dose: 150 mls/hr Documented By: [facility] Ceftriaxone Sodium 1,000 mg/ (Sodium Chloride) 100 mls @ 200 mls/hr IV Q24H ORALIA Levothyroxine Sodium (Levothyroxine 75 Mcg Tablet) 75 mcg PO 0600 [facility] Last Admin: 07/30/22 05:53 Dose: 75 mcg Documented By: [facility] Liothyronine Sodium (Liothyronine 5 Mcg Tablet) 5 mcg PO 0600 [facility] Last Admin: 07/30/22 05:53 Dose: 5 mcg Documented By: [facility] Ondansetron HCl (Ondansetron 4 Mg/2 Ml Inj) 4 mg IV Q8HR PRN PRN Reason: Nausea And Vomiting Prednisone (Prednisone 5 Mg Tablet) 5 mg PO DAILY ORALIA Discontinued Medications Acetaminophen (Acetaminophen 325 Mg Tablet) 975 mg PO NOW ONE Stop: 07/30/22 00:42 Last Admin: 07/30/22 01:00 Dose: 975 mg Documented By: AT Sodium Chloride (Normal Saline 0.9%) 1,000 mls @ 200 mls/hr IV CONT ORALIA Last Infusion: 07/30/22 03:03 Dose: 0 mls/hr Documented By: Admin: 07/30/22 00:57 Dose: 200 mls/hr Documented By: AT Ceftriaxone Sodium 2,000 mg/ (Sodium Chloride) 100 mls @ 200 mls/hr IV NOW ONE Stop: 07/30/22 00:42 Last Infusion: 07/30/22 02:02 Dose: 0 mls/hr Documented By: Admin: 07/30/22 01:02 Dose: 200 mls/hr Documented By: AT Sodium Chloride (Normal Saline 0.9%) 1,572 mls @ 524 mls/hr 30 ml/kg infuse over 3 hr (1572 ml) IV NOW ONE Stop: 07/30/22 05:17 Last Infusion: 07/30/22 03:25 Dose: 524 mls/hr Documented By: Admin: 07/30/22 03:18 Dose: 524 mls/hr Documented By: DONTRELL Ketorolac Tromethamine (Ketorolac 30 Mg/Ml Vial) 15 mg IV NOW ONE Stop: 07/30/22 00:42 Last Admin: 07/30/22 00:58 Dose: 15 mg Documented By: AT Prednisone (Prednisone 5 Mg Tablet) 10 mg PO DAILY ORALIA Vital Signs Vital signs: Vital Signs - 8 hr 07/29/22 23:50 07/30/22 00:48 07/30/22 01:00 Temperature 103.5 F H Pulse Rate 95 H 91 H 91 H Respiratory Rate 15 28 H 32 H Blood Pressure 132/60 Pulse Oximetry 94 Oxygen Delivery Method Room Air 07/30/22 01:05 07/30/22 01:05 07/30/22 01:30 Temperature Pulse Rate 90 89 Respiratory Rate 26 H 27 H Blood Pressure 169/72 H Pulse Oximetry Oxygen Delivery Method 07/30/22 01:31 07/30/22 01:31 07/30/22 02:00 Temperature Pulse Rate 88 81 Respiratory Rate 21 22 Blood Pressure 125/60 Pulse Oximetry Oxygen Delivery Method 07/30/22 02:01 07/30/22 02:01 Temperature Pulse Rate 81 Respiratory Rate 23 Blood Pressure 105/55 L Pulse Oximetry Oxygen Delivery Method MDM - Fever Lab Data Result diagrams: 07/29/22 23:50 07/29/22 23:50 Labs: Lab Results 07/29/22 07/29/22 07/29/22 Range/Units 23:50 23:50 23:50 WBC 19.1 H (4.5-11.0) X10^3/uL RBC 3.93 L (4.0-5.2) X10^6/uL Hgb 11.4 L (12.0-16.0) g/dL Hct 34.1 L (36-46) % MCV 86.7 (80-100) fL MCH 29.0 (26-34) PG MCHC 33.5 (30-36) % RDW 13.7 (11.6-14.8) % Plt Count 221 (150-400) X10^3/uL Neut % (Auto) 85.0 H (50-75) % Lymph % (Auto) 6.2 L (25-40) % [place]anan % (Auto) 8.4 (3-14) % Eos % (Auto) 0.1 L (2-4) % Baso % (Auto) 0.3 (0-2) % Neut # (Auto) 20180 H (0539-5285) /uL Lymph # (Auto) 1200 (0853-5687) /uL Buchanan # (Auto) 1600 H (0-900) /uL Eos # (Auto) 0 (0-450) /uL Baso # (Auto) 100 (0-100) /uL Sodium 129 L (137-145) mmol/L Potassium 4.1 (3.4-5.1) mmol/L Chloride 96 L (98-107) mmol/L Carbon Dioxide 20 L (22-32) mmol/L BUN 22 H (7-17) mg/dL Creatinine 1.16 H (0.52-1.04) mg/dL Estimated GFR 50 L (>60) mL/min BUN/Creatinine Ratio 19.0 (6-22) Glucose 86 (80-110) mg/dL Lactate 0.9 (0.7-2.1) mmol/L Calcium 8.7 (8.4-10.2) mg/dL Total Bilirubin 0.5 (0.2-1.3) mg/dL AST 25 (14-36) IU/L ALT 16 (<35) IU/L Alkaline Phosphatase 83 (38-126) U/L Total Creatine Kinase 185 H (30-135) U/L CK-MB (CK-2) 2.39 H (<2.37) ng/mL CK-MB (CK-2) Rel Index 1.3 L (1.5-5.0) % Troponin I < 0.012 (0.01-0.034) ng/mL Total Protein 7.8 (6.3-8.2) g/dL Albumin 3.8 (3.5-5.0) g/dL Globulin 4.0 (1.7-4.1) g/dL Albumin/Globulin Ratio 1.0 (1.0-2.8) Procalcitonin 1.23 H (<0.5) ng/mL TSH (0.47-4.68) uIU/mL Urine Color Urine Appearance Urine pH (4.5-8.0) Ur Specific [place] (1.000-1.035) Urine Protein (Negative) Urine Glucose (UA) (Negative) g/dL Urine Ketones (NEGATIVE) Urine Occult Blood (Negative) Urine Nitrate (Negative) Urine Bilirubin (NEGATIVE) Urine Urobilinogen (0.2) E.U./dL Ur Leukocyte Esterase (NEGATIVE) Urine RBC (0-5/HPF) Urine WBC (0-5/HPF) Ur Squamous Epith Cells (0-5/HPF) Urine Bacteria (None) Ur Culture Indicated? SARS-CoV-2 (PCR) (Negative) 07/29/22 07/29/22 07/30/22 Range/Units 23:50 23:55 00:26 WBC (4.5-11.0) X10^3/uL RBC (4.0-5.2) X10^6/uL Hgb (12.0-16.0) g/dL Hct (36-46) % MCV (80-100) fL MCH (26-34) PG MCHC (30-36) % RDW (11.6-14.8) % Plt Count (150-400) X10^3/uL Neut % (Auto) (50-75) % Lymph % (Auto) (25-40) % Buchanan % (Auto) (3-14) % Eos % (Auto) (2-4) % Baso % (Auto) (0-2) % Neut # (Auto) (3955-4786) /uL Lymph # (Auto) (1070-2862) /uL Buchanan # (Auto) (0-900) /uL Eos # (Auto) (0-450) /uL Baso # (Auto) (0-100) /uL Sodium (137-145) mmol/L Potassium (3.4-5.1) mmol/L Chloride (98-107) mmol/L Carbon Dioxide (22-32) mmol/L BUN (7-17) mg/dL Creatinine (0.52-1.04) mg/dL Estimated GFR (>60) mL/min BUN/Creatinine Ratio (6-22) Glucose (80-110) mg/dL Lactate (0.7-2.1) mmol/L Calcium (8.4-10.2) mg/dL Total Bilirubin (0.2-1.3) mg/dL AST (14-36) IU/L ALT (<35) IU/L Alkaline Phosphatase (38-126) U/L Total Creatine Kinase (30-135) U/L CK-MB (CK-2) (<2.37) ng/mL CK-MB (CK-2) Rel Index (1.5-5.0) % Troponin I (0.01-0.034) ng/mL Total Protein (6.3-8.2) g/dL Albumin (3.5-5.0) g/dL Globulin (1.7-4.1) g/dL Albumin/Globulin Ratio (1.0-2.8) Procalcitonin (<0.5) ng/mL TSH 0.682 (0.47-4.68) uIU/mL Urine Color Yellow Urine Appearance Clear Urine pH 5.5 (4.5-8.0) Ur Specific [place] 1.020 (1.000-1.035) Urine Protein 1+ H (Negative) Urine Glucose (UA) Negative (Negative) g/dL Urine Ketones 2+ H (NEGATIVE) Urine Occult Blood 2+ H (Negative) Urine Nitrate Positive H (Negative) Urine Bilirubin Negative (NEGATIVE) Urine Urobilinogen 0.2 (0.2) E.U./dL Ur Leukocyte Esterase Negative (NEGATIVE) Urine RBC 0-1/hpf (0-5/HPF) Urine WBC 1-5/hpf (0-5/HPF) Ur Squamous Epith Cells 1-5 /hpf (0-5/HPF) Urine Bacteria Many (>30) H (None) Ur Culture Indicated? Specimen cultured SARS-CoV-2 (PCR) Negative (Negative) Imaging Data CT scan - head: Radiologist's Impression: Signed Patient: Jocelin Lopez MR#: [id number] : 1950 Acct:[id number] Age/Sex: 72 / F Date of Service: 07/30/22 Loc: ED Accession Number: [id number] ?? Procedure: CT head/brain wo con Ordering Provider: Mimi Reilly D.O. PROCEDURE:? CT HEAD/BRAIN WO CON ? INDICATIONS:? fall confusion ? TECHNIQUE:? Noncontrast 4.5 mm thick angled axial sections acquired from the foramen magnum to the vertex, with coronal and sagittal reformats.? For radiation dose reduction, the following was used:? automated exposure control, adjustment of mA and/or kV according to patient size.? ? COMPARISON:? None. ? FINDINGS:? Image quality:? Excellent.? ? CSF spaces:? Basal cisterns are patent.? No extra-axial fluid collections.? The ventricles are symmetric in size and shape.? ? Brain:? No intracranial bleeds or masses.? There is cerebral volume loss for age, with resultant ventricular and sulcal prominence.? There are periventricular and deep white matter chronic small vessel ischemic changes.? There is intracranial internal carotid artery atherosclerosis.? ? Skull and face:? Calvarium and visualized facial bones appear intact, without suspicious lesions.? ? Sinuses:? Visualized sinuses and mastoids are clear.? ? IMPRESSION:? No trauma found. ? ? Dictated by: Stephon Davis M.D. on 07/30/2022 at 0:56 ? CT - cervical spine: Radiologist's Impression: Signed Patient: Jocelin Lopez MR#: [id number] : 1950 Acct:[id number] Age/Sex: 72 / F Date of Service: 07/30/22 Loc: ED Accession Number: [id number] ?? Procedure: CT cervical spine wo con Ordering Provider: Mimi Reilly D.O. PROCEDURE:? CT CERVICAL SPINE WO CON ? INDICATIONS:? fall pain ? TECHNIQUE:? Noncontrast 3 mm thick sections acquired from the skull base to the T4 level.? Sagittal and coronal reformats were then constructed.? For radiation dose reduction, the following was used:? automated exposure control, adjustment of mA and/or kV according to patient size.? ? COMPARISON:? None. ? FINDINGS:? Image quality:? Excellent.? ? Bones:? No fractures or dislocations.? Visualized superior ribs are intact.? ? Soft tissues:? Prevertebral soft tissues are normal in thickness.? No paravertebral hematomas.? No apical pneumothoraces.? ? ? IMPRESSION:? No trauma found. ? Dictated by: Stephon Davis M.D. on 07/30/2022 at 0:55 ? ? Approved by: Stephon Davis M.D. on 07/30/2022 at 0:56 ? Chest x-ray: Radiologist's Impression: nt: Jocelin Lopez MR#: [id number] : 1950 Acct:[id number] Age/Sex: 72 / F Date of Service: 07/29/22 Loc: ED Accession Number: [id number] ?? Procedure: XR chest 1V Ordering Provider: Mimi Reilly D.O. PROCEDURE:? XR CHEST 1V ? INDICATIONS:? fever ? TECHNIQUE:? One view of the chest was acquired.? ? COMPARISON:? [facility], , XR CHEST 2V, 05/27/2019, 16:11. ? FINDINGS:? ? Surgical changes and devices:? None.? ? Lungs and pleura:? Lungs are clear.? No pleural effusions or pneumothorax.? ? Mediastinum:? Mediastinal contours appear normal.? Heart size is normal.? ? Bones and chest wall:? No suspicious bony lesions.? Overlying soft tissues appear unremarkable.? ? IMPRESSION:? Reduced inspiratory volume, no definite acute disease. ? ? Dictated by: Stephon Davis M.D. on 07/30/2022 at 0:58 ? ? Approved by: Stephon Davis M.D. on 07/30/2022 at 0:59 ? ECG Data Interpretation: Normal sinus rhythm rate 93 IA interval 142 QRS [address] changes Q-wave noted in lead 3 and AVF similar previous EKG in 2019 MDM Narrative Medical decision making narrative: The patient is confused is with fever and sepsis. Vitals are stable no sign of septic shock. She is found have a UTI have leukocytosis of 19 and fever of 103. Patient's blood pressure has been declining while in the emergency department but remains above 100. The sepsis fluids were ordered for this reason only. Lactic acid is within normal limits. Patient is answering questions but does remain slightly confused. He is given a dose of Rocephin for UTI. Dr. Crenshaw accepts patient Discharge Plan Departure Patient Disposition: Admitted As Inpatient Clinical Impression: Sepsis, Acute UTI Admit Date/Time: 07/30/22 02:19 Admit Provider: Venkat Crenshaw
[2022-07-30 00:35] LABS: Add Manual Diff / Slide Review NO; Basophils Absolute Auto 100 /uL (0-100); Basophils Percent Auto 0.3 % (0-2); Eosinophils Absolute Auto 0 /uL (0-450); Eosinophils Percent Auto 0.1 % (2-4); Hematocrit 34.1 % (36-46); Hemoglobin 11.4 g/dL (12.0-16.0); Lymphocytes Absolute Auto 1200 /uL (1100-4500); Lymphocytes Percent Auto 6.2 % (25-40); Mean Corpuscular HGB Conc 33.5 % (30-36); Mean Corpuscular Volume 86.7 fL (80-100); Monocytes Absolute Auto 1600 /uL (0-900); Monocytes Percent Auto 8.4 % (3-14); Neutrophils Absolute Auto 16200 /uL (1500-7000); Platelet Count 221 X10^3/uL (150-400); Red Blood Cell Count 3.93 X10^6/uL (4.0-5.2); Red Cell Distribution Width 13.7 % (11.6-14.8); White Blood Cell Count 19.1 X10^3/uL (4.5-11.0)
[2022-07-30 00:40] LABS: Alanine Aminotransferase 16 IU/L (<35); Albumin 3.8 g/dL (3.5-5.0); Alkaline Phosphatase 83 U/L (38-126); Aspartate Aminotransferase 25 IU/L (14-36); Bilirubin Total 0.5 mg/dL (0.2-1.3); Blood Urea Nitrogen 22 mg/dL (7-17); Calcium 8.7 mg/dL (8.4-10.2); Carbon Dioxide 20 mmol/L (22-32); Chloride 96 mmol/L (98-107); Creatine Kinase 185 U/L (30-135); Estimated Glomerular Filt Rate 50 mL/min (>60); Glucose 86 mg/dL (80-110); HEMOLYSIS 16 (0-50); Potassium 4.1 mmol/L (3.4-5.1); Sodium 129 mmol/L (137-145); Total Protein 7.8 g/dL (6.3-8.2)
[2022-07-30 00:51] LABS: Lactate (Lactic Acid) 0.9 mmol/L (0.7-2.1)
[2022-07-30 00:52] LABS: Troponin I < 0.012 ng/mL (0.01-0.034)
[2022-07-30 00:55] LABS: CKMB % Relative Index 1.3 % (1.5-5.0); Creatine Kinase MB 2.39 ng/mL (<2.37)
[2022-07-30 00:57] LABS: Procalcitonin 1.23 ng/mL (<0.5)
[2022-07-30] MEDS: SODIUM CHLORIDE 0.9% 1,000 ML 200 ML IV (00:57)
[2022-07-30] MEDS: KETOROLAC 30 MG/ML VIAL 15 MG IV (00:58)
[2022-07-30] MEDS: ACETAMINOPHEN 325 MG TABLET 975 MG PO (01:00)
[2022-07-30] MEDS: cefTRIAXone 2,000 MG in SODIUM CHLORIDE 0.9% 100 ML 200 MG IV (01:02)
[2022-07-30 01:14] LABS: COVID19 -Nasal RAPID Negative (Negative)
[2022-07-30 01:44] LABS: Thyroid Stimulating Hormone 0.682 uIU/mL (0.47-4.68)
[2022-07-30 01:50] LABS: Appearance Urine UA CLEAR; Bilirubin Urine UA NEGATIVE (NEGATIVE); Color Urine UA YELLOW; Glucose Urine UA NEGATIVE (Negative); Ketones Urine UA 2+ (NEGATIVE); Leukocyte Esterase Urine UA NEGATIVE (NEGATIVE); Nitrite Urine UA POSITIVE (Negative); Occult Blood Urine UA 2+ (Negative); Protein Urine UA 1+ (Negative); Urobilinogen Urine UA 0.2 E.U./dL (0.2)
[2022-07-30 01:51] LABS: pH Urine UA 5.5 (4.5-8.0)
[2022-07-30 01:57] LABS: Bacteria Urine Many (>30); Culture Indicated Urine Specimen Cultured; RBC Urine 0-1/HPF (0-5/HPF); Squamous Epithelial Cell Urine 1-5 /HPF (0-5/HPF); WBC Urine 1-5/HPF (0-5/HPF)
[2022-07-30] MEDS: SODIUM CHLORIDE 0.9% 1,572 ML 524 ML IV (03:18)
--- NOTE | 2022-07-30 04:51 | PC.ADMIT ---
[address] Admission Note: The patient,Jocelin Lopez,72 y/o, was given written information regarding hospital policies, unit procedures and contact persons. Patient's smoking status: Former smoker. Vital Signs - 8 hr 07/29/22 23:50 07/30/22 00:48 07/30/22 01:00 Temperature 103.5 F H Pulse Rate 95 H 91 H 91 H Respiratory Rate 15 28 H 32 H Blood Pressure 132/60 Pulse Oximetry 94 Oxygen Delivery Method Room Air 07/30/22 01:05 07/30/22 01:05 07/30/22 01:30 Temperature Pulse Rate 90 89 Respiratory Rate 26 H 27 H Blood Pressure 169/72 H Pulse Oximetry Oxygen Delivery Method 07/30/22 01:31 07/30/22 01:31 07/30/22 02:00 Temperature Pulse Rate 88 81 Respiratory Rate 21 22 Blood Pressure 125/60 Pulse Oximetry Oxygen Delivery Method 07/30/22 02:01 07/30/22 02:01 07/30/22 02:20 Temperature Pulse Rate 81 Respiratory Rate 23 Blood Pressure 105/55 L 112/58 L Pulse Oximetry Oxygen Delivery Method 07/30/22 02:20 07/30/22 03:03 07/30/22 03:03 Temperature 98.2 F 98.2 F Pulse Rate 81 Respiratory Rate 30 H Blood Pressure Pulse Oximetry 96 Oxygen Delivery Method 07/30/22 04:48 Temperature Pulse Rate Respiratory Rate Blood Pressure Pulse Oximetry Oxygen Delivery Method Room Air Patient admitted to room 207 from ER per stretcher but able to walk to bathroom and back to bed. Is alert and oriented and talks excessively, rambles on about various topics. Breath sounds CTA with RA sat of 96%. HRR. Denies nausea. BT hypoactive but did have BM on admission. States she is continent of urine during the day but is incontinent at night; denies dysuria. Is able to move herself in bed. Instructed to have SBA when getting out of bed for safety. Reports she has Raynauds. Wearing mouth splint at night. Denies use of assistive device except has been sometimes use poles when walking at home. Fall risk score is moderate and bed alarm is activated. Oriented to bed controls and call light.
[2022-07-30] MEDS: LEVOTHYROXINE 75 MCG TABLET PO (05:53)
[2022-07-30] MEDS: LIOTHYRONINE 5 MCG TABLET PO (05:53)
--- NOTE | 2022-07-30 06:20 | PM.HP.1 ---
History of Present Illness History of Present Illness Date Patient Seen: 07/30/22 Time Patient Seen: 05:00 Chief complaint: Confusion/Lethargy Narrative: Ms. Lopez is a 72W with PMH hypothyroid, connective tissue disease on chronic prednisone who presents with fevers, confusion and weakness. She has difficulty relating symptoms. She states she woke up and was confused about the time, and she relates a tangential and confusing story regarding her laundry. Her states that yesterday she was fine but today was quite confused and weak. She was not having cough, shortness of breath, dysuria, abdominal pain, or diarrhea. She follow with a residence director disorder for pain in her hands, which she says is caused by a not defined connective tissue disorder. She has been tested for rheumatoid arthritis but says that her testing was equivocal. She is on hydroxycholoroquine. She was recently decreased from 10mg to 5mg of prednisone and has had some hand pain return. In the ED workup was done, vitals notable for temp 103.5, hr 90s, blood pressure as low as systolic 105. Labs notable for WBC 19.1, hgb 11.4, plts 221. Na 129, Creatinine 1.16. Lactate 0.9, trop negative. Procal 1.23. UA with nitrates and bacteria. CT head negative. CT c-spine negative. Chest xray with no acute process. Social history: former smoker, occasional etoh Family history: denies rheumatolic disease in family Patient History Medical History Mycoplasma infection Family & Social History Social History: household members spouse,children Prior Living Arrangements House Safety & Behavioral: Feels Safe in Current Yes Environment Been Physically Hurt or No Threatened By a Person Tobacco & Substance use: Tobacco type cigarettes Smoking Status Former smoker alcohol intake former alcohol intake frequency 0-2 drinks per day Substance Use Type does not use Meds Home Medications and Allergies Home Medications Medication Instructions Recorded Confirmed Type celecoxib 200 mg capsule 200 mg PO BIDCC #0 caps 06/17/16 07/30/22 History clonazepam 0.5 mg tablet (Klonopin) 0.5 mg PO TID ##0 06/17/16 07/30/22 History liothyronine 5 mcg tablet (Cytomel) 5 mcg PO QDAY #0 tabs 06/17/16 07/30/22 History acetaminophen 325 mg tablet 325 mg PO QID PRN pain 07/30/22 07/30/22 History baclofen 20 mg tablet 20 mg PO DAILY 07/30/22 07/30/22 History hydroxychloroquine 400 mg PO DAILY 07/30/22 07/30/22 History levothyroxine 75 mcg capsule 37.5 mcg PO DAILY 07/30/22 07/30/22 History levothyroxine 75 mcg tablet 75 mcg PO DAILY 07/30/22 07/30/22 History nifedipine 10 mg capsule 10 mg PO TID PRN Raynaud's 07/30/22 07/30/22 History prednisone 10 mg tablet 10 mg PO DAILY 07/30/22 07/30/22 History pregabalin 75 mg capsule 75 mg PO QPM 07/30/22 07/30/22 History Allergies Allergy/AdvReac Type Severity Reaction Status Date / Time adhesive [ADHESIVE] Allergy Unknown RASH Verified 07/30/22 00:21 rofecoxib [From VIOXX] Allergy Unknown MY LEGS Verified 07/30/22 00:21 FELT LIKE THEY COULDNT MOVE Sulfa (Sulfonamide Allergy Unknown RASH Verified 07/30/22 00:21 Antibiotics) [SULFA (SULFONAMIDE ANTIBIOTICS)] Review of Systems Review of Systems Narrative: 14 systems reviewed and negative aside from what is noted in HPI Exam Vital Signs (past 8 hours): - 07/29/22 23:50 07/30/22 00:48 07/30/22 01:00 Temperature 103.5 F H Pulse Rate 95 H 91 H 91 H Respiratory Rate 15 28 H 32 H Blood Pressure 132/60 Pulse Oximetry 94 Oxygen Delivery Method Room Air Oxygen Flow Rate 07/30/22 01:05 07/30/22 01:05 07/30/22 01:30 Temperature Pulse Rate 90 89 Respiratory Rate 26 H 27 H Blood Pressure 169/72 H Pulse Oximetry Oxygen Delivery Method Oxygen Flow Rate 07/30/22 01:31 07/30/22 01:31 07/30/22 02:00 Temperature Pulse Rate 88 81 Respiratory Rate 21 22 Blood Pressure 125/60 Pulse Oximetry Oxygen Delivery Method Oxygen Flow Rate 07/30/22 02:01 07/30/22 02:01 07/30/22 02:20 Temperature Pulse Rate 81 Respiratory Rate 23 Blood Pressure 105/55 L 112/58 L Pulse Oximetry Oxygen Delivery Method Oxygen Flow Rate 07/30/22 02:20 07/30/22 03:03 07/30/22 03:03 Temperature 98.2 F 98.2 F Pulse Rate 81 Respiratory Rate 30 H Blood Pressure Pulse Oximetry 96 Oxygen Delivery Method Oxygen Flow Rate 07/30/22 04:48 07/30/22 03:50 Temperature 96.8 F L Pulse Rate 75 Respiratory Rate 16 Blood Pressure 116/56 L Pulse Oximetry 98 Oxygen Delivery Method Room Air Oxygen Flow Rate 0 Oxygen Delivery Method Room Air Oxygen Flow Rate 0 Narrative Exam Narrative: GEN: confused HEENT: moist mucous membranes, PERRL NECK: trachea midline, no JVD PULM: clear bilaterally, no wheezes, rhonchi, rales CV: regular rate and rhythm, no murmurs ABD: soft, nontender, nondistended, no organomegaly EXT: warm and well perfused with no edema NEURO: awake, confused, tangential, no focal deficits Objective Labs Result Diagrams: 07/29/22 23:50 07/29/22 23:50 Labs: Laboratory Results - last 24 hr 07/29/22 07/29/22 07/29/22 23:50 23:50 23:50 WBC 19.1 H RBC 3.93 L Hgb 11.4 L Hct 34.1 L MCV 86.7 MCH 29.0 MCHC 33.5 RDW 13.7 Plt Count 221 Neut % (Auto) 85.0 H Lymph % (Auto) 6.2 L [place] % (Auto) 8.4 Eos % (Auto) 0.1 L Baso % (Auto) 0.3 Neut # (Auto) 55871 H Lymph # (Auto) 1200 [place] # (Auto) 1600 H Eos # (Auto) 0 Baso # (Auto) 100 Sodium 129 L Potassium 4.1 Chloride 96 L Carbon Dioxide 20 L BUN 22 H Creatinine 1.16 H Estimated GFR 50 L BUN/Creatinine Ratio 19.0 Glucose 86 Lactate 0.9 Calcium 8.7 Total Bilirubin 0.5 AST 25 ALT 16 Alkaline Phosphatase 83 Total Creatine Kinase 185 H CK-MB (CK-2) 2.39 H CK-MB (CK-2) Rel Index 1.3 L Troponin I < 0.012 Total Protein 7.8 Albumin 3.8 Globulin 4.0 Albumin/Globulin Ratio 1.0 Procalcitonin 1.23 H TSH Urine Color Urine Appearance Urine pH Ur Specific [place] Urine Protein Urine Glucose (UA) Urine Ketones Urine Occult Blood Urine Nitrate Urine Bilirubin Urine Urobilinogen Ur Leukocyte Esterase Urine RBC Urine WBC Ur Squamous Epith Cells Urine Bacteria Ur Culture Indicated? SARS-CoV-2 (PCR) 07/29/22 07/29/22 07/30/22 23:50 23:55 00:26 WBC RBC Hgb Hct MCV MCH MCHC RDW Plt Count Neut % (Auto) Lymph % (Auto) [place] % (Auto) Eos % (Auto) Baso % (Auto) Neut # (Auto) Lymph # (Auto) [place] # (Auto) Eos # (Auto) Baso # (Auto) Sodium Potassium Chloride Carbon Dioxide BUN Creatinine Estimated GFR BUN/Creatinine Ratio Glucose Lactate Calcium Total Bilirubin AST ALT Alkaline Phosphatase Total Creatine Kinase CK-MB (CK-2) CK-MB (CK-2) Rel Index Troponin I Total Protein Albumin Globulin Albumin/Globulin Ratio Procalcitonin TSH 0.682 Urine Color Yellow Urine Appearance Clear Urine pH 5.5 Ur Specific [place] 1.020 Urine Protein 1+ H Urine Glucose (UA) Negative Urine Ketones 2+ H Urine Occult Blood 2+ H Urine Nitrate Positive H Urine Bilirubin Negative Urine Urobilinogen 0.2 Ur Leukocyte Esterase Negative Urine RBC 0-1/hpf Urine WBC 1-5/hpf Ur Squamous Epith Cells 1-5 /hpf Urine Bacteria Many (>30) H Ur Culture Indicated? Specimen cultured SARS-CoV-2 (PCR) Negative Assessment & Plan Assessment & Plan narrative: 1. Urinary tract infection with sepsis causing acute encephalopathy and mild MISA -she comes in notable for positive UA, with tachycardia, leukocytosis, and fever -organ dysfunction with encephalopathy -creatinine at 1.16 from baseline 0.90 -follow up urine and blood cultures -did get IVF in ED -continue ceftriaxone 2. Mild hyponatremia -sodium 129 on admit -suspect etiology is hypovolemia from infection -doubt this is cause of encephalopathy -recheck labs in AM to see if improved after IV fluids 3. Hypothyroid -continue thyoid meds 4. Connective tissue disorder -continue prednisone, and once dose hydroxycholorquine confirmed will continue that -low threshold for stress dose steroids, but for now will continue home dose prednisone CODE: Full Proxy: Feliciano Lopez, spouse I have utilized all available resources to reconcile the patient's home medications Time Spent With Patient Critical Care time: I spent a total of [] minutes of critical care time on this patient's care today; this time is exclusive of procedural time. Quality MIPS - Admit I confirm the patient?s Advance Care Plan is present, Code status is documented, Surrogate decision maker is in patient?s record [If Yes, STOP here]: Yes
[2022-07-30] MEDS: SODIUM CHLORIDE 0.9% 1,000 ML 150 ML IV (06:56)
[2022-07-30 07:45] LABS: Add Manual Diff / Slide Review NO; Basophils Absolute Auto 100 /uL (0-100); Basophils Percent Auto 0.3 % (0-2); Eosinophils Absolute Auto 100 /uL (0-450); Eosinophils Percent Auto 0.4 % (2-4); Hematocrit 31.1 % (36-46); Hemoglobin 10.3 g/dL (12.0-16.0); Lymphocytes Absolute Auto 1800 /uL (1100-4500); Lymphocytes Percent Auto 10.4 % (25-40); Mean Corpuscular HGB Conc 33.2 % (30-36); Mean Corpuscular Hemoglobin 28.9 PG (26-34); Mean Corpuscular Volume 86.9 fL (80-100); Monocytes Absolute Auto 1500 /uL (0-900); Monocytes Percent Auto 8.9 % (3-14); Neutrophils Absolute Auto 13700 /uL (1500-7000); Platelet Count 191 X10^3/uL (150-400); Red Blood Cell Count 3.58 X10^6/uL (4.0-5.2); Red Cell Distribution Width 13.9 % (11.6-14.8); White Blood Cell Count 17.2 X10^3/uL (4.5-11.0)
[2022-07-30 07:58] LABS: BUN Creatinine Ratio 18.3 (6-22); Blood Urea Nitrogen 21 mg/dL (7-17); Calcium 7.9 mg/dL (8.4-10.2); Carbon Dioxide 17 mmol/L (22-32); Chloride 102 mmol/L (98-107); Estimated Glomerular Filt Rate 51 mL/min (>60); Glucose 83 mg/dL (80-110); HEMOLYSIS < 15 (0-50); Sodium 132 mmol/L (137-145)
--- NOTE | 2022-07-30 09:03 | CM.DANOTE ---
DCP: Case received, EMR reviewed and met with patient. Introduced self and role. Was able to obtain information regarding patient's baseline activity status prior to hospitalization. DCP assessment completed with information currently available. Patient is a 72 year old female who admitted yearly this morning to the care of the hospitalist team. PCP: Dr. Nina. Payer: confirmed: Medicare/[facility]. Patient came to the hospital via ambulance secondary to increased weakness and confusion. Notes indicate that patient needed EMS transport secondary to weakness. Patient was noted to have a temp of 103. Patient had also sustained some recent trauma from her garage door hitting her head. Patient has history of rheumatoid arthritis, and is under the care of a medical record assistant. Patient was diagnosed with UTI. Met with patient in her room. She is alert, oriented, knows that she's in the hospital. Confirmed that she resides in [place] with spouse, Feliciano, who is a realtor, as well as her son. She does have a walker for home use. She did mention, her garage door had hit her recently, but did not bring this up to the doctor. She mentioned, she wanted to talk to the nurse to make sure that she received what was on her list. Patient was also stating, she was having diarrhea, due to the antibiotics they are giving her. P: DCP to continue to follow closely for needs. She does not have current P.T. orders, will discuss further at team rounds. Hannah Robin RN/Footwear Sales Associate Discharge Planning/Care Management Advanced directive, confirm from FAMILY Start: 07/30/22 03:58 Freq: Q24H Status: Active Protocol: Document 07/30/22 03:58 [facility] (Rec: 07/30/22 03:59 [facility] [id number]) Advance Directive, confirm on record Time 03:58 Person contacted Feliciano Lopez Copy received No CM Discharge Assessment Start: 07/30/22 08:59 Freq: Status: Active Protocol: Document 07/30/22 08:59 (Rec: 07/30/22 09:03 [id number]) Discharge Planning Assessment Assigned Freight Adjuster Hannah Robin RN/Footwear Sales Associate Advance Directives? Yes Advance Directives on File No History Provided By Patient,Medical Record Prior Living Arrangements House Household Members spouse,children Type of transporation used prior to Drives own vehicle admit Independent with ADL's Yes Is patient alert and oriented? Yes Caregiver for Another No DME Already Rented / Owned FWW / Walker Barriers to Discharge No Discharge Plan Home Transportation Arrangement Family Referrals Initiated None needed Whiteboard Updated in Patient Room with Yes name and ext. # of Freight Adjuster Review Status In Process Next Review Type Continued Stay Review
[2022-07-30] MEDS: ACETAMINOPHEN 325 MG TABLET 650 MG PO ×2 (09:35→19:54)
[2022-07-30] MEDS: predniSONE 5 MG TABLET PO (09:35)
[2022-07-30] MEDS: CEFEPIME 2 GM in SODIUM CHLORIDE 0.9% 100 ML IV ×2 (09:35→20:47)
[2022-07-30] MEDS: ENOXAPARIN 40 MG/0.4 ML SYRINGE SUBCUT (09:35)
[2022-07-30] MEDS: metroNIDAZOLE 500 MG TABLET PO ×3 (09:35→20:42)
[2022-07-30] MEDS: VANCOMYCIN 1,000 MG/200 ML PIGGYBACK 200 MG IV (10:29)
[2022-07-30] MEDS: ALBUTEROL/IPRATROPIUM 3 ML AMPUL INH (10:56)
--- NOTE | 2022-07-30 14:27 | DIET.CONS ---
Dietary Consultation Note Admission Date: 07/30/2022 02:19 Assessment: 72 y/o F admitted with UTI with sepsis causing acute encephalopathy and mild MISA. RD consulted for MNA score of 11 d/t reported weight loss at admission. Jocelin reports she has been trying to lose weight though recent weight loss may be r/t excessive sleeping and skipped meals; however she also reports intentionally eating only 2 meals per day since October in an effort to lose weight. Difficult to determine if weight loss is intentional or not. Reports UBW is 200# Reports recent wt at PCP office of 205# one month ago, indicating a -8# or -3.9% over one month (not significant). Endorses diarrhea since yesterday, which she attributes to antibiotic tx. Recent PO 25%. If continues <50% please re-consult. Ht: 157.48 cm Wt: 89.5 kg BMI: 36.1 Last BM: 07/30/22 (07/30/22 12:20) MNA: 11 Justin Score: 19 Diet: 07/30/22 Breakfast Heart Healthy Diet Diet Modifications: Nutrition Percent Meal Consumed 25% 07/30/22 09:30 Labs: RBC 3.58 X10^6/uL (4.0-5.2) L 07/30/22 07:06 Hgb 10.3 g/dL (12.0-16.0) L 07/30/22 07:06 Hct 31.1 % (36-46) L 07/30/22 07:06 Creatinine 1.15 mg/dL (0.52-1.04) H 07/30/22 07:06 Lactate 0.9 mmol/L (0.7-2.1) 07/29/22 23:50 Monitoring/Evaluations: consult prn Electronically Signed by: Sarah Coleman 07/30/22 14:27 Clinical Dietitian [address] [address]
--- NOTE | 2022-07-30 14:51 | PC.NURSE ---
Day shift: IV fluids d/c'd per Dr Martinez. Pt encouraged to drink extra water. Pt states I will drink extra water. I always do.
[2022-07-30] MEDS: ONDANSETRON 4 MG/2 ML INJ IV (18:19)
--- NOTE | 2022-07-30 18:33 | PC.NURSE ---
Day shift: Pt given meds per DEC with applesauce and she threw all pills up whole. Gave IV Zofran per DEC and Dr Martinez informed of the incident of emesis.
[2022-07-30] MEDS: PREGABALIN 75 MG CAPSULE PO (19:53)
[2022-07-30] MEDS: CELECOXIB 200 MG CAPSULE PO (19:53)
[2022-07-30] MEDS: clonazePAM 0.5 MG TABLET PO (20:42)
[2022-07-30] MEDS: BACLOFEN 10 MG TABLET 20 MG PO (20:42)
[2022-07-30] MEDS: SODIUM CHLORIDE 0.9% FLUSH 10 ML IV (20:42)
[2022-07-31 01:25] VITALS: BP 145/72; PULSE 87; RESP 18; TEMP 36.2; O2SAT 98
[2022-07-31] MEDS: LEVOTHYROXINE 75 MCG TABLET PO (05:39)
[2022-07-31] MEDS: LIOTHYRONINE 5 MCG TABLET PO (05:39)
[2022-07-31 07:00] VITALS: O2SAT 93
[2022-07-31] MEDS: ACETAMINOPHEN 325 MG TABLET 650 MG PO ×3 (07:01→21:39)
--- NOTE | 2022-07-31 07:39 | P.PN_ITS ---
Subjective Subjective Date Patient Seen: 07/31/22 Time Patient Seen: 10:00 Interval history: Patient feeling better and wondering when she can go home. Mentation back to baseline of oriented x3. Exam Vital Signs (past 8 hours): - 07/31/22 01:25 Temperature 97.1 F L Pulse Rate 87 Respiratory Rate 18 Blood Pressure 145/72 H Pulse Oximetry 98 Oxygen Flow Rate 0 Oxygen Delivery Method Room Air Oxygen Flow Rate 0 Narrative Exam Narrative: GEN: alert and oriented x3 HEENT: moist mucous membranes, PERRL NECK: trachea midline, no JVD PULM: clear bilaterally, no wheezes, rhonchi, rales CV: regular rate and rhythm, no murmurs ABD: soft, nontender, nondistended, no organomegaly EXT: warm and well perfused with no edema NEURO: awake, confused, tangential, no focal deficits Objective Labs Result Diagrams: 07/31/22 08:34 07/31/22 08:34 Labs: Laboratory Results - last 24 hr 07/30/22 07/30/22 07/30/22 07:06 07:06 10:09 WBC 17.2 H RBC 3.58 L Hgb 10.3 L Hct 31.1 L MCV 86.9 MCH 28.9 MCHC 33.2 RDW 13.9 Plt Count 191 Neut % (Auto) 80.0 H Lymph % (Auto) 10.[address] % (Auto) 8.9 Eos % (Auto) 0.4 L Baso % (Auto) 0.3 Neut # (Auto) 22116 H Lymph # (Auto) 1800 [place] # (Auto) 1500 H Eos # (Auto) 100 Baso # (Auto) 100 Sodium 132 L Potassium 4.0 Chloride 102 Carbon Dioxide 17 L BUN 21 H Creatinine 1.15 H Estimated GFR 51 L BUN/Creatinine Ratio 18.3 Glucose 83 Calcium 7.9 L Nasal Screen MRSA (PCR) Negative for mrsa PFSH Medical History Mycoplasma infection Social History household members: spouse and children Smoking Status: Former smoker alcohol intake: former Assessment & Plan Assessment & Plan narrative: 1. Pyelonephritis with sepsis causing acute encephalopathy and mild MISA, with sepsis, encephalopathy and MISA now resolved -she comes in notable for positive UA, with tachycardia, leukocytosis, and fever -organ dysfunction with encephalopathy -creatinine at 1.16 from baseline 0.90, now 0.78 -Urine culture with GNB, await identification and sensitivities -blood cultures NGTD -continue cefepime given immunosuppressed with prednisone and HCQ, likely dc on po abx for 10 days 2. Mild hyponatremia, improving -sodium 129 on admit, now 130 -suspect etiology is hypovolemia from infection -doubt this is cause of encephalopathy 3. Hypothyroid -continue thyoid meds -TSH normal 4. Connective tissue disorder -continue prednisone, and once dose hydroxycholorquine confirmed will continue that -low threshold for stress dose steroids, but for now will continue home dose prednisone CODE: Full Proxy: Feliciano Lopez, spouse I have utilized all available resources to reconcile the patient's home medications Dispo: PT cleared for home, likely on 08/01 following urine culture results. Time Spent With Patient Critical Care time: I spent a total of [] minutes of critical care time on this patient's care today; this time is exclusive of procedural time.
[2022-07-31 07:50] VITALS: BP 127/67; PULSE 86; RESP 18; TEMP 37.4; O2SAT 93
[2022-07-31 08:56] LABS: Add Manual Diff / Slide Review NO; Basophils Absolute Auto 0 /uL (0-100); Basophils Percent Auto 0.3 % (0-2); Eosinophils Absolute Auto 100 /uL (0-450); Eosinophils Percent Auto 0.7 % (2-4); Hematocrit 29.8 % (36-46); Lymphocytes Absolute Auto 1200 /uL (1100-4500); Lymphocytes Percent Auto 7.9 % (25-40); Mean Corpuscular HGB Conc 33.4 % (30-36); Mean Corpuscular Hemoglobin 29.3 PG (26-34); Mean Corpuscular Volume 87.8 fL (80-100); Monocytes Absolute Auto 1300 /uL (0-900); Monocytes Percent Auto 8.4 % (3-14); Neutrophils Absolute Auto 12900 /uL (1500-7000); Neutrophils Percent Auto 82.7 % (50-75); Platelet Count 202 X10^3/uL (150-400); Red Cell Distribution Width 13.9 % (11.6-14.8); White Blood Cell Count 15.6 X10^3/uL (4.5-11.0)
[2022-07-31 09:11] LABS: BUN Creatinine Ratio 16.7 (6-22); Blood Urea Nitrogen 13 mg/dL (7-17); Calcium 8.3 mg/dL (8.4-10.2); Carbon Dioxide 14 mmol/L (22-32); Chloride 102 mmol/L (98-107); Estimated Glomerular Filt Rate > 60 mL/min (>60); Glucose 101 mg/dL (80-110); HEMOLYSIS 22 (0-50); Potassium 3.8 mmol/L (3.4-5.1); Sodium 130 mmol/L (137-145)
--- NOTE | 2022-07-31 09:15 | PT.IIE ---
Medical History (Last Reviewed 07/30/22 @ 06:25 by Venkat Crenshaw MD) Mycoplasma infection Physical Therapy Inpatient Evaluation/Re-Eval M1 PT/OT-IP Prior Functional Status Start: 07/31/22 11:25 Freq: NEEDED Status: Active Protocol: Document 07/31/22 09:15 AB (Rec: 07/31/22 11:36 AB [id number]) Medical Review Prior Functional Status Medical History Reviewed Yes Communication able to make needs known but with slight confusion; pt easily distracted Mobility and Gait pt stated that she is modified independent with all mobilities and ambulation using 2 hiking poles for mobility Social History Household Members spouse,children Living Arrangements House Number of Floors (Floors) One Floor Number of Stairs To Enter/Railing? no steps to enter from the front door Home Environment High Toilet,Walk in Shower,Tub /Shower Home Equipment Front Wheel Walker,Shower Seat with Backrest,Hand Held Shower Additional Social History Comment pt has a standard walker; 2 hiking poles M2 PT-IP Current Condition Start: 07/31/22 11:25 Freq: NEEDED Status: Active Protocol: Document 07/31/22 09:15 AB (Rec: 07/31/22 11:36 AB [email or web address]) Physical Therapy Current Condition Current Condition Evaluation Date 07/31/22 Treatment Diagnosis sepsis; UTI; difficulty in walking Onset Date 07/30/22 M3 PT-IP Subjective Start: 07/31/22 11:25 Freq: NEEDED Status: Active Protocol: Document 07/31/22 09:15 AB (Rec: 07/31/22 11:36 AB [email or web address]) Subjective Physical Therapy Visit Type Type Initial Evaluation Visit Start Time 09:15 Visit Stop Time 09:45 Total Visit Minutes 30 Number of CONSULTING SERVICES ASSOCIATE Visits 0 Physical Therapy Visit Comments Patient Comments agreeable to do PT Therapy Pain Assessment Pain When Pain Assessed At Rest Location Neck Intensity 5 Scale Used Numeric (0 - 10) Pain Management Techniques Distraction,Modification of Treatment,Re-positioning, Timing of Activity with Medications M4 PT-IP Mobility and Gait Start: 07/31/22 11:25 Freq: NEEDED Status: Active Protocol: Document 07/31/22 09:15 AB (Rec: 07/31/22 11:36 AB [email or web address]) PT-Bed Mobility Assessment Supine to Sit Supine to Sit Standby Assistance Sit to Supine Sit to Supine Standby Assistance PT-Transfer Assessment Sit to and From Stand Sit to and from Stand Standby Assistance,Use of Upper Extremities Equipment Transfer Assistive Device Gait Belt,Front Wheeled Walker Orthotic/Prosthetic Devices or Brace: No Transfers Transfer Destination Bed Transfer Ability Level of Assist Standby Assistance,1 Person Assistance,Use of Upper Extremities Comments Mobility Comments pt walking with FWW from the toilet and instructed to sit on EOB. pt with slight confusion and decrease safety awareness. completed sit<> supine SBA. educated on safety. completed more ambulation in room using FWW ~ 40 ft SBA. pt requested to go back to bed. positioned in bed. call light and table placed within reach. pt's son arrived at end of PT session. asked son to bring in pt's [employer] poles for training tomorrow and agreed. Gait Assessment Gait Gait Assistance Required: Standby Assistance Distance (Feet) 40 Able to Maintain Weight Bearing Status Yes During Gait Assistive Devices Assistive Device Gait Belt,Front Wheeled Walker Orthotic/Prosthetic Devices or Brace: No Gait Deviations General Gait Pattern Decreased Stride Length, Decreased Feet Clearance Factors Limiting Gait Function Factors Limiting Gait Function Decreased Activity Tolerance, Decreased Strength,Difficulty Following Directions,Limited Range of Motion,Pain,Poor Balance,Poor Safety Awareness PT-Balance Assessment Sitting Balance and Reactions Static Sitting Balance Ability Normal Dynamic Sitting Balance Ability Good Standing Balance and Reactions Static Standing Balance Ability Fair Dynamic Standing Balance Ability Fair Device Used FWW M5 PT-IP Objective Assessments Start: 07/31/22 11:25 Freq: NEEDED Status: Active Protocol: Document 07/31/22 09:15 AB (Rec: 07/31/22 11:36 [email or web address]) Orientation Orientation/Cognition Level of Alertness Confusional State Orientation Name Language Function Ability No Deficits Noted Safety Awareness Decreased Safety Awareness Memory Description Short Term Impaired Gross Range of Motion Lower Extremity ROM Assessment Within Functional Limits Strength Lower Extremity Strength Assessment Within Functional Limits Muscle Tone Muscle Tone WNL Yes M6 PT-IP Treatment Start: 07/31/22 11:25 Freq: NEEDED Status: Active Protocol: Document 07/31/22 09:15 AB (Rec: 07/31/22 11:36 AB [email or web address]) Physical Therapy Treatment Education Education Provided Safety M7 PT-IP Assessment and Plan Start: 07/31/22 11:25 Freq: NEEDED Status: Active Protocol: Document 07/31/22 09:15 AB (Rec: 07/31/22 11:36 AB [id number]) PT Summary Assessment and Plan Potential Rehabilitation Potential Fair Status of Condition at Evaluation Stable Summary Impairments Pain,ROM,Strength,Balance, Coordination,Sensation,Tone, Cognition,Bed Mobility, Transfers,Gait,Activity Tolerance Assessment Summary pt requiring SBA with mobility using FWW but with decrease safety awareness affecting independence. pt stated that her spouse will be able to assist her as well as her son. will continue to assess progress. Goals Bed Mobility Goal Independent Transfer Goal Independent,Front Wheeled Walker Gait Goal Independent,Front Wheel Walker Gait Distance 200 Other Goals improve ambulation using 2 hiking poles mod I 300 ft Days to Meet Goals 5 Frequency of Treatment Frequency Of Treatment Once a Day Treatment Plan Physical Therapy Treatment Plan Bed Mobility Training,Transfer Training,Gait Training, Therapeutic Exercise,Balance Retraining,Discharge Planning, Hot or Cold Pack,Neuromuscular Re-ed,Coordination Retraining Recommendations To Nursing Amount of Assist Needed 1 Person Assist Discharge Recommendations PT Discharge Recommendations Home with Assistance Transportation Needs at Discharge Private Vehicle
[2022-07-31] MEDS: predniSONE 5 MG TABLET PO (09:26)
[2022-07-31] MEDS: metroNIDAZOLE 500 MG TABLET PO ×3 (09:26→20:41)
[2022-07-31] MEDS: CELECOXIB 200 MG CAPSULE PO ×2 (09:26→17:12)
[2022-07-31] MEDS: clonazePAM 0.5 MG TABLET PO ×3 (09:27→20:41)
[2022-07-31] MEDS: ENOXAPARIN 40 MG/0.4 ML SYRINGE SUBCUT (09:27)
[2022-07-31] MEDS: CEFEPIME 2 GM in SODIUM CHLORIDE 0.9% 100 ML IV ×2 (10:37→20:45)
[2022-07-31] MEDS: SODIUM CHLORIDE 0.9% FLUSH 10 ML IV ×2 (10:38→20:41)
--- NOTE | 2022-07-31 12:24 | OT.IP.EVAL ---
Past Medical History (Last Reviewed 07/30/22 @ 06:25 by Venkat Crenshaw MD) Mycoplasma infection Occupational Therapy Inpatient Evaluation/Re-Eval M1 PT/OT-IP Prior Functional Status Start: 07/31/22 11:25 Freq: NEEDED Status: Active Protocol: Document 07/31/22 11:45 [facility] (Rec: 07/31/22 12:48 [facility] [id number]) Medical Review Prior Functional Status Medical History Reviewed Yes Communication able to make needs known but with slight confusion; pt easily distracted Mobility and Gait pt stated that she is modified independent with all mobilities and ambulation using 2 hiking poles for mobility Activities of Daily Living and IADL's Pt states able to do all her ADL and IADL needs for herself of medications in pill boxes and states able to the bills. Social History Household Members spouse,children Living Arrangements House Number of Floors (Floors) One Floor Number of Stairs To Enter/Railing? no steps to enter from the front door Home Environment High Toilet,Walk in Shower,Tub /Shower Home Equipment Front Wheel Walker,Shower Seat with Backrest,Hand Held Shower,Event Planner,Sock Aid Additional Social History Comment pt has a standard walker; 2 hiking poles M2 OT-IP Current Condition Start: 07/31/22 12:26 Freq: Status: Active Protocol: Document 07/31/22 11:45 [facility] (Rec: 07/31/22 12:48 [facility] [id number]) Occupational Therapy Current Condition Current Condition Evaluation Date 07/31/22 Treatment Diagnosis UTI Diagnosis Onset Date 07/30/22 M3 OT- IP Subjective and Pain Start: 07/31/22 12:26 Freq: Status: Active Protocol: Document 07/31/22 11:45 [facility] (Rec: 07/31/22 12:48 [facility] [id number]) OT- Subjective Occupational Therapy Visit Type Type Initial Evaluation Visit Start Time 11:45 Visit Stop Time 12:24 Total Visit Minutes 39 Occupational Therapy Visit Comments Patient Comments Pt using the toilet when OT came to work with her and her son present in the room. Patient/Caregiver Goals To go home M4 OT- IP ADL's Start: 07/31/22 12:26 Freq: Status: Active Protocol: Document 07/31/22 11:45 [facility] (Rec: 07/31/22 12:48 [facility] [id number]) OT [id number] Comments OT Self-Feeding Comments Not at meal time. OT ADL-Grooming General Evaluation Areas Needing Assistance Retrieving/Set-up of Grooming Items OT ADL-Oral Care Comments Oral Care Comments Not performed. OT ADL-Dressing General Eval Lower Body Dressing Ability Minimal Assistance Areas Needing Assistance Underpants/Brief Comments OT Dressing Comments Pt needing assist to help pull up her brief over her feet, OT ADL-Toileting General Evaluation Toileting Ability Minimal Assistance Areas Needing Assistance Manage Clothing Comments OT Toileting Comments Pt able to do hygiene on her own and needing assist for brief management needs. OT ADL-Bathing Comments OT Bathing Comments Not performed. M5 OT- IP IADL's Start: 07/31/22 12:26 Freq: Status: Active Protocol: Document 07/31/22 11:45 [facility] (Rec: 07/31/22 12:48 [facility] [id number]) OT-Instrumental Activities of Daily Living Deficits IADL Deficits Identified Deficits Home Safety Awareness Awareness of Need for Assistance at Home Decreased Awareness Home Safety Comments Pt is not thinking effectively, highly distracted and poor safety awareness and will benefit from 24/7 available assist at home. Medication Management Medication Management Comments Concerns for pt to be able to do independently and will need at least supervision. Money Management Money Management Comments Concerns for pt to be able to do independently and will need at least supervision. Meal Preparation Meal Preparation Comments Concerns for pt to be able to do independently and will need at least supervision. Paster Operator Paster Operator Comments Concerns for pt to be able to do independently and will need at least supervision. Driving Driving Concerns Identified Regarding Safety M6 OT- IP Functional Cognition Start: 07/31/22 12:26 Freq: Status: Active Protocol: Document 07/31/22 11:45 [facility] (Rec: 07/31/22 12:48 [facility] [id number]) Cognitive Factors Limiting Selfcare Function Cognitive Ability Level of Alertness Alert Patient Orientation Name,Place,Situation Attention Span Ability Capable of Focused Attention, Unable to Sustain Attention Memory Description Working Impaired Safety Awareness Underestimates Need for Assistance Problem Solving Ability Unable to Identify Errors, Needs Assist to Identify Solutions Cognitive Comments Cognitive Assessment Comments Pt highly distractable, and persevarates on topics. Noted decreased safety awareness and needing cue for log rolling and not able to figure out how to do on the opposite side versus at home. Pt attempted to do [place] [employer] and unable to remember to alternate between numbers and letters and already at 2 minutes, max vc and only completing 30% of the assessment, therefore implies pt has severe deficits for visual attention, speed of processing, executive functioning, task switching, and mental flexibility. Pt realizes that she will not be driving at this time. Pt's son well aware that she is not thinking well and feel it is due to her UTI and not sleeping well. OT- Vision and Hearing OT- Hearing Assessment OT- Hearing Assessment WFL OT- Vision Assessment Visual Acuity WFL Visual Attentiveness WFL Occular Pursuits WFL M7 OT- IP Mobility and Balance Start: 07/31/22 12:26 Freq: Status: Active Protocol: Document 07/31/22 11:45 [facility] (Rec: 07/31/22 12:48 [facility] [id number]) OT- Bed Mobility Assessment Rolling Type of Rolling Roll to Left Level of Assistance Standby Assistance Supine to Sit Supine to Sit Assist Standby Assistance Sit to Supine Sit to Supine Assist Standby Assistance OT-Transfer Assessment Sit to and From Stand Sit to and from Stand Standby Assistance,Contact Guard Assistance Transfers Transfer Ability Standby Assistance,Contact Guard Assistance Technique Transfer Destination Bed,Toilet Transfer Technique Stand Step Pivot Devices Transfer Assistive Devices Gait Belt,Front Wheeled Walker Comments Mobility Comments CGA to stand at time from lower surfaces and pt from close SBA to CGA as at times unsteady on her feet. OT- Balance Assessment Sitting Balance and Reactions Static Sitting Balance Ability Normal Dynamic Sitting Balance Ability Good Standing Balance and Reactions Static Standing Balance Ability Fair Dynamic Standing Balance Ability Fair M8 OT- IP Objective Assessments Start: 07/31/22 12:26 Freq: Status: Active Protocol: Document 07/31/22 11:45 [facility] (Rec: 07/31/22 12:48 [facility] [id number]) OT Gross Range of Motion Upper Extremity Range of Motion Assessment Within Functional Limits OT Strength Upper Extremity Strength Assessment Within Functional Limits OT- Coordination Assessment Upper Extremity Finger to Nose Test Within Functional Limits OT-Muscle Tone Assessment Muscle Tone WNL Yes OT Sensation Assessment Comments Summary Comments Intact for ligth touch M9 OT- IP Assessment and Plan Start: 07/31/22 12:26 Freq: Status: Active Protocol: Document 07/31/22 11:45 [facility] (Rec: 07/31/22 12:48 [facility] [id number]) OT Summary Assessment and Plan Potential Rehabilitation Potential Good Analytic Complexity at Evaluation Moderate Summary OT Impairments Balance,Functional Cognition, Functional Mobility,Grooming, Dressing,Toileting,Bathing, Toilet Transfers,Shower Transfers Progress Towards Goals Slow Progress due to Medical Issues,Slow Progress due to Cognition Assessment Summary Pt MOD complexity and main barriers are confusion, decreased safety awareness, dynamic balance, and would benefit form 24/7 available assist at this time for safety awareness for ADL, IADL, and mobility needs. Pt has her son and spouse at home to assist with her needs. Pt feels that she is not thinking well due to UTI and not having been able to sleep. Goals Grooming Goal Independent Dressing Goal Independent Toileting Goal Independent Bathing Goal Independent Toilet Transfer Goal Independent Shower Transfer Goal Independent Days to Meet Goals 5 Frequency of Treatment Frequency Of Treatment Once a Day Treatment Plan OT Treatment Plan ADL Training,Functional Cognition Training,Functional Mobility,Patient/Family Education,Discharge Planning Other Treatment Recommendations and Next shower Treatment Focus Discharge Recommendations OT Discharge Recommendations Home with 24/7 Assist Available Transportation Needs at Discharge Private Vehicle
--- NOTE | 2022-07-31 14:51 | CM.DPC ---
DCP Cont: Patient's spouse, Feliciano, came by the care management office and presented advanced directives, POA paperwork for patient. Met with spouse and patient in the room. Asked if they wanted the documents copied, and he mentioned that these are copies for the patient's records. Gave this information to bianca Sorenson, to scan to patient's chart. Patient is up using walker, and alert and oriented. She hopes to go home tomorrow. Asked her about home health services if she needed it, stated, I don't think that I need it. She was on her phone, conversing, and walking in her room with her walker. Patient's spouse is a realtor, as is their son. 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 P: DCP to continue to follow. Patient should be able to go home when she is medically stable, possibly tomorrow. Hannah Robin RN/Migration Specialist
[2022-07-31] MEDS: PREGABALIN 75 MG CAPSULE PO (17:12)
[2022-07-31 18:00] VITALS: BP 134/66; PULSE 69; RESP 18; TEMP 36.2
[2022-07-31] MEDS: BACLOFEN 10 MG TABLET 20 MG PO (20:41)
[2022-07-31 21:00] VITALS: BP 166/74; PULSE 65; RESP 18; TEMP 36.9; O2SAT 99
[2022-07-31 21:10] VITALS: O2SAT 99
[2022-08-01 06:00] VITALS: BP 175/89; PULSE 80; RESP 16; TEMP 36.7; O2SAT 98
[2022-08-01] MEDS: LIOTHYRONINE 5 MCG TABLET PO (06:02)
[2022-08-01] MEDS: LEVOTHYROXINE 75 MCG TABLET PO (06:02)
[2022-08-01 07:00] VITALS: O2SAT 97
[2022-08-01 07:31] LABS: Add Manual Diff / Slide Review NO; Basophils Absolute Auto 0 /uL (0-100); Basophils Percent Auto 0.3 % (0-2); Eosinophils Absolute Auto 400 /uL (0-450); Eosinophils Percent Auto 3.7 % (2-4); Hemoglobin 11.3 g/dL (12.0-16.0); Lymphocytes Absolute Auto 1300 /uL (1100-4500); Lymphocytes Percent Auto 10.7 % (25-40); Mean Corpuscular HGB Conc 33.2 % (30-36); Mean Corpuscular Hemoglobin 29.2 PG (26-34); Monocytes Absolute Auto 900 /uL (0-900); Monocytes Percent Auto 7.8 % (3-14); Neutrophils Absolute Auto 9200 /uL (1500-7000); Neutrophils Percent Auto 77.5 % (50-75); Platelet Count 232 X10^3/uL (150-400); Red Blood Cell Count 3.86 X10^6/uL (4.0-5.2); Red Cell Distribution Width 14.3 % (11.6-14.8); White Blood Cell Count 11.9 X10^3/uL (4.5-11.0)
[2022-08-01 07:43] LABS: BUN Creatinine Ratio 14.5 (6-22); Blood Urea Nitrogen 11 mg/dL (7-17); Calcium 9.3 mg/dL (8.4-10.2); Carbon Dioxide 22 mmol/L (22-32); Chloride 107 mmol/L (98-107); Estimated Glomerular Filt Rate > 60 mL/min (>60); Glucose 91 mg/dL (80-110); HEMOLYSIS < 15 (0-50); Potassium 3.5 mmol/L (3.4-5.1); Sodium 142 mmol/L (137-145)
[2022-08-01 08:35] VITALS: BP 164/76; PULSE 74; RESP 18; TEMP 36.3; O2SAT 97
--- NOTE | 2022-08-01 09:38 | OT.IP.TRT ---
Current Diagnoses Sepsis, unspecified organism (07/30/22) Occupational Therapy Treatment Note M2 OT-IP Current Condition Start: 07/31/22 12:26 Freq: Status: Active Protocol: Document 07/31/22 11:45 [facility] (Rec: 07/31/22 12:48 [facility] [id number]) Occupational Therapy Current Condition Current Condition Evaluation Date 07/31/22 Treatment Diagnosis UTI Diagnosis Onset Date 07/30/22 M3 OT- IP Subjective and Pain Start: 07/31/22 12:26 Freq: Status: Active Protocol: Document 08/01/22 10:04 [facility] (Rec: 08/01/22 10:13 [facility] [id number]) OT- Subjective Occupational Therapy Visit Type Type Treatment Note Visit Start Time 09:05 Visit Stop Time 09:38 Total Visit Minutes 33 Occupational Therapy Visit Comments Patient Comments Pt wanting to use the bathroom . Pt requesting Tylenol for her headache. Patient/Caregiver Goals TO go home. OT Pain Assessment Pain When Pain Assessed At Rest Pain Present Pain Present Pain Reported Location Neck Pain Behaviors Facial Grimacing,Holding Area M4 OT- IP ADL's Start: 07/31/22 12:26 Freq: Status: Active Protocol: Document 08/01/22 10:04 [facility] (Rec: 08/01/22 10:13 [facility] [id number]) OT ADL-Grooming General Evaluation Grooming Ability Independent OT ADL-Oral Care General Eval Oral Care Ability Independent OT ADL-Dressing General Eval Lower Body Dressing Ability Standby Assistance Comments OT Dressing Comments Increased time for brief/pad management and to darlyn/doff her socks. OT ADL-Toileting General Evaluation Toileting Ability Standby Assistance Comments OT Toileting Comments Pt able to manage her own needs during bowel movement, hygiene and brief management. OT ADL-Bathing Comments OT Bathing Comments Pt states wanting to shower at home. M6 OT- IP Functional Cognition Start: 07/31/22 12:26 Freq: Status: Active Protocol: Document 08/01/22 10:04 [facility] (Rec: 08/01/22 10:13 [facility] [id number]) Cognitive Factors Limiting Selfcare Function Cognitive Comments Cognitive Assessment Comments Pt thinking much better today and able to coordinate and figure out her log rolling on the opposite versus at home today. Pt able to recall her home medications today versus yesterday unable to recall them. M7 OT- IP Mobility and Balance Start: 07/31/22 12:26 Freq: Status: Active Protocol: Document 08/01/22 10:04 [facility] (Rec: 08/01/22 10:13 [facility] [id number]) OT- Bed Mobility Assessment Rolling Type of Rolling Roll to Left Level of Assistance Standby Assistance Supine to Sit Supine to Sit Assist Standby Assistance Sit to Supine Sit to Supine Assist Standby Assistance OT-Transfer Assessment Sit to and From Stand Sit to and from Stand Standby Assistance Transfers Transfer Ability Standby Assistance Technique Transfer Destination Bed,Toilet Transfer Technique Stand Step Pivot Devices Transfer Assistive Devices Gait Belt,Front Wheeled Walker Comments Mobility Comments Pt from SBA to distant SBA with FWW in the room. OT- Balance Assessment Sitting Balance and Reactions Static Sitting Balance Ability Normal Dynamic Sitting Balance Ability Good Standing Balance and Reactions Static Standing Balance Ability Good Dynamic Standing Balance Ability Fair M8 OT- IP Objective Assessments Start: 07/31/22 12:26 Freq: Status: Active Protocol: Document 07/31/22 11:45 [facility] (Rec: 07/31/22 12:48 [facility] [id number]) OT Gross Range of Motion Upper Extremity Range of Motion Assessment Within Functional Limits OT Strength Upper Extremity Strength Assessment Within Functional Limits OT- Coordination Assessment Upper Extremity Finger to Nose Test Within Functional Limits OT-Muscle Tone Assessment Muscle Tone WNL Yes OT Sensation Assessment Comments Summary Comments Intact for ligth touch M9 OT- IP Assessment and Plan Start: 07/31/22 12:26 Freq: Status: Active Protocol: Document 08/01/22 10:04 [facility] (Rec: 08/01/22 10:13 [facility] [id number]) OT Summary Assessment and Plan Potential Rehabilitation Potential Good Analytic Complexity at Evaluation Moderate Summary OT Impairments Functional Mobility,Bathing Progress Towards Goals Progressing Toward Goals Assessment Summary Pt much improved today with cognition, mobility and ADLs and looking to go home with her family to assist today. Goals Dressing Goal Independent Toileting Goal Independent Bathing Goal Independent Toilet Transfer Goal Independent Days to Meet Goals 3 Frequency of Treatment Frequency Of Treatment Once a Day Treatment Plan OT Treatment Plan ADL Training,Functional Cognition Training,Functional Mobility,Patient/Family Education,Discharge Planning Discharge Recommendations OT Discharge Recommendations Home with Assistance Transportation Needs at Discharge Private Vehicle
[2022-08-01] MEDS: ACETAMINOPHEN 325 MG TABLET 650 MG PO (09:52)
[2022-08-01] MEDS: CELECOXIB 200 MG CAPSULE PO (09:52)
[2022-08-01] MEDS: predniSONE 5 MG TABLET PO (09:52)
[2022-08-01] MEDS: clonazePAM 0.5 MG TABLET PO (09:52)
[2022-08-01] MEDS: ENOXAPARIN 40 MG/0.4 ML SYRINGE SUBCUT (09:53)
[2022-08-01] MEDS: POTASSIUM CHLORIDE 20 MEQ TAB 40 MEQ PO (10:06)
[2022-08-01] MEDS: SODIUM CHLORIDE 0.9% FLUSH 10 ML IV (10:06)
[2022-08-01] MEDS: CEFEPIME 2 GM in SODIUM CHLORIDE 0.9% 100 ML IV (10:12)
--- NOTE | 2022-08-01 11:25 | PT.IPTN ---
Current Diagnoses Sepsis, unspecified organism (07/30/22) Physical Therapy Treatment Note M2 PT-IP Current Condition Start: 07/31/22 11:25 Freq: NEEDED Status: Active Protocol: Document 07/31/22 09:15 [facility] (Rec: 07/31/22 11:36 [facility] [id number]) Physical Therapy Current Condition Current Condition Evaluation Date 07/31/22 Treatment Diagnosis sepsis; UTI; difficulty in walking Onset Date 07/30/22 M3 PT-IP Subjective Start: 07/31/22 11:25 Freq: NEEDED Status: Active Protocol: Document 08/01/22 11:25 [facility] (Rec: 08/01/22 12:28 [facility] [id number]) Subjective Physical Therapy Visit Type Type Treatment Note Visit Start Time 11:25 Visit Stop Time 11:40 Total Visit Minutes 15 Number of TRICK RODEO RIDER Visits 0 Physical Therapy Visit Comments Patient Comments agreeable to do PT M4 PT-IP Mobility and Gait Start: 07/31/22 11:25 Freq: NEEDED Status: Active Protocol: Document 08/01/22 11:25 [facility] (Rec: 08/01/22 12:28 [facility] [id number]) PT-Bed Mobility Assessment Supine to Sit Supine to Sit Independent PT-Transfer Assessment Sit to and From Stand Sit to and from Stand Standby Assistance Equipment Transfer Assistive Device Gait Belt,Front Wheeled Walker Orthotic/Prosthetic Devices or Brace: No Transfers Transfer Destination Chair Transfer Technique ambulated Transfer Ability Level of Assist Standby Assistance Comments Mobility Comments checked on pt and son in room. Asked son if he was able to bring pt's hiking poles (per conversation yesterday) but son was not able to bring poles. pt has a FWW and stated that she can use her FWW. pt completed supine to sit mod I. sit to stand sBA and ambulated in room using FWW SBA ~ 40 ft. pt agreed to sit on the chair and ambulated to the chair. positioned with call light and table placed within reach. Gait Assessment Gait Gait Assistance Required: Standby Assistance Distance (Feet) 40 Able to Maintain Weight Bearing Status Yes During Gait Assistive Devices Assistive Device Gait Belt,Front Wheeled Walker Orthotic/Prosthetic Devices or Brace: No Gait Deviations General Gait Pattern Decreased Stride Length, Decreased Feet Clearance,Step- to Gait Factors Limiting Gait Function Factors Limiting Gait Function Decreased Activity Tolerance, Decreased Strength,Difficulty Following Directions,Limited Range of Motion,Pain,Poor Balance,Poor Safety Awareness M5 PT-IP Objective Assessments Start: 07/31/22 11:25 Freq: NEEDED Status: Active Protocol: Document 07/31/22 09:15 [facility] (Rec: 07/31/22 11:36 [facility] [id number]) Orientation Orientation/Cognition Level of Alertness Confusional State Orientation Name Language Function Ability No Deficits Noted Safety Awareness Decreased Safety Awareness Memory Description Short Term Impaired Gross Range of Motion Lower Extremity ROM Assessment Within Functional Limits Strength Lower Extremity Strength Assessment Within Functional Limits Muscle Tone Muscle Tone WNL Yes M6 PT-IP Treatment Start: 07/31/22 11:25 Freq: NEEDED Status: Active Protocol: Document 08/01/22 11:25 [facility] (Rec: 08/01/22 12:28 [facility] [id number]) Physical Therapy Treatment Education Education Provided Safety M7 PT-IP Assessment and Plan Start: 07/31/22 11:25 Freq: NEEDED Status: Active Protocol: Document 08/01/22 11:25 [facility] (Rec: 08/01/22 12:28 [facility] [id number]) PT Summary Assessment and Plan Potential Rehabilitation Potential Good Summary Impairments Pain,ROM,Strength,Balance, Coordination,Sensation,Tone, Cognition,Bed Mobility, Transfers,Gait,Activity Tolerance Progress Towards Goals Progressing Toward Goals Assessment Summary pt requiring SBA with mobility and will have her spouse and son to assist her at home. pt may go home when medically stable. Goals Bed Mobility Goal Independent Transfer Goal Independent,Front Wheeled Walker Gait Goal Independent,Front Wheel Walker Gait Distance 200 Other Goals improve ambulation using 2 hiking poles mod I 300 ft Days to Meet Goals 5 Frequency of Treatment Frequency Of Treatment Once a Day Treatment Plan Physical Therapy Treatment Plan Bed Mobility Training,Transfer Training,Gait Training, Therapeutic Exercise,Balance Retraining,Discharge Planning, Hot or Cold Pack,Neuromuscular Re-ed,Coordination Retraining Recommendations To Nursing Amount of Assist Needed 1 Person Assist Discharge Recommendations PT Discharge Recommendations Home with Assistance Transportation Needs at Discharge Private Vehicle
--- NOTE | 2022-08-01 11:29 | PC.NURSE ---
Addendum entered by Navid Hickey R.N. 08/01/22 14:01: Pt readied for discharge. Son attentive at bedside. D/C instructions given to Pt and and son. Pt escorted to car by Geovanna LEIVA via w\c. IV d/c'd intact. Belongings with Pt's son. Original Note: Pt a&o offers no overt c/o. Taking B'fast. PT in the room presently.
--- NOTE | 2022-08-01 18:16 | PM.DS.1 ---
History of Present Illness History of Present Illness Chief complaint: Confusion/Lethargy Narrative: Ms. Lopez is a 72W with PMH hypothyroid, connective tissue disease on chronic prednisone who presents with fevers, confusion and weakness. She has difficulty relating symptoms. She states she woke up and was confused about the time, and she relates a tangential and confusing story regarding her laundry. Her states that yesterday she was fine but today was quite confused and weak. She was not having cough, shortness of breath, dysuria, abdominal pain, or diarrhea. 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 She has been tested for rheumatoid arthritis but says that her testing was equivocal. She is on hydroxycholoroquine. She was recently decreased from 10mg to 5mg of prednisone and has had some hand pain return. In the ED workup was done, vitals notable for temp 103.5, hr 90s, blood pressure as low as systolic 105. Labs notable for WBC 19.1, hgb 11.4, plts 221. Na 129, Creatinine 1.16. Lactate 0.9, trop negative. Procal 1.23. UA with nitrates and bacteria. CT head negative. CT c-spine negative. Chest xray with no acute process. Social history: former smoker, occasional etoh Family history: denies rheumatolic disease in family Discharge Providers Provider Date of admission: 07/30/22 02:19 Discharge Date: 08/01/22 Primary care physician: Brandi Nina DO Consults: 07/30/22 03:58 Consult to Dietitian, Adult Routine Comment: Reason For Exam: MNA score = 11 07/31/22 07:43 Consult to Physical Therapy Evaluate & Treat Comment: Physician Instructions: Evaluate and Treat 07/31/22 07:44 Consult to Occupational Therapy Evaluate & Treat Comment: Physician Instructions: Evaluate and treat Discharge provider: Venkat Crenshaw MD Summary Hospital Course Discharge Diagnosis: 1. Pyelonephritis with sepsis causing encephalopathy and MISA 2. Mild hyponatremia 3. Hypothyroidism 4. Connective tissue disorder Hospital Course: Ms. Lopez was admitted with sepsis and cause was a urinary source. She was initially confused and had an MISA. She was given fluids and antibiotics. She ultimately had a pansensitive E. Coli in her urine and will be discharged with 4 more days of oral antibiotics for a 7 day course. Exam Vital Signs (past 8 hours): Oxygen Delivery Method Room Air Oxygen Flow Rate 0 Narrative Exam Narrative: GEN: alert and oriented x3 PULM: clear bilaterally, no wheezes, rhonchi, rales CV: regular rate and rhythm, no murmurs ABD: soft, nontender, nondistended, no organomegaly Objective Labs Result Diagrams: 08/01/22 07:16 08/01/22 07:16 Labs: Laboratory Results - last 24 hr 08/01/22 08/01/22 07:16 07:16 WBC 11.9 H RBC 3.86 L Hgb 11.3 L Hct 34.0 L MCV 88.0 MCH 29.2 MCHC 33.2 RDW 14.3 Plt Count 232 Neut % (Auto) 77.5 H Lymph % (Auto) 10.7 L Ransom % (Auto) 7.8 Eos % (Auto) 3.7 Baso % (Auto) 0.3 Neut # (Auto) 9200 H Lymph # (Auto) 1300 Ransom # (Auto) 900 Eos # (Auto) 400 Baso # (Auto) 0 Sodium 142 D Potassium 3.5 Chloride 107 Carbon Dioxide 22 BUN 11 Creatinine 0.76 Estimated GFR > 60 BUN/Creatinine Ratio 14.5 Glucose 91 Calcium 9.3 [facility] Medical History Mycoplasma infection Social History household members: spouse and children Smoking Status: Former smoker alcohol intake: former Discharge Plan Discharge Plan Patient Disposition: Home Provider Discharge Comment: Ms. Lopez came in to the hospital due to a urinary tract infection. She improved with antibiotics and will be discharged with a prescription to complete. Discharge orders & Medications Prescriptions: New prednisone 5 mg Tablet 5 mg PO DAILY Qty: 30 0RF amoxicillin-pot clavulanate 875-125 mg tablet 1 tab PO BID Qty: 8 0RF Continued celecoxib 200 MG capsule 200 mg PO BIDCC Qty: 0 clonazepam [Klonopin] 0.5 MG tablet 0.5 mg PO TID Qty: 0 liothyronine [Cytomel] 5 MCG tablet 5 mcg PO QDAY Qty: 0 baclofen 20 mg tablet 20 mg PO DAILY Label Comments: take 1 tablet by mouth once daily if needed levothyroxine 75 mcg tablet 75 mcg PO DAILY Label Comments: TAKE 1 TABLET BY MOUTH ONCE DAILY FOR 6 DAYS, THEN TAKE 1/2 TABLET ON SUNDAYS Rx Instructions: Wednesday thru Sat pregabalin 75 mg capsule 75 mg PO QPM Label Comments: TAKE 1 CAPSULE BY MOUTH ONCE DAILY AT NIGHT hydroxychloroquine 400 mg PO DAILY Rx Instructions: take with prednisone acetaminophen 325 mg Tablet 325 mg PO QID PRN (Reason: pain) nifedipine 10 mg Capsule 10 mg PO TID PRN (Reason: Raynaud's) levothyroxine 75 mcg Capsule 37.5 mcg PO DAILY Rx Instructions: on Wednesday Discontinued prednisone 10 mg tablet 10 mg PO DAILY Label Comments: Take 1 tablet once a day Follow up/Referrals: Brandi Nina DO [Primary Care Provider] - Diet/Activity/Treatments Diet: Regular Visit Report/Discharge Packet Instructions: DI for Heart Failure, DI for Prescription Opioid Use Discharge Data Primary Care Provider: Brandi Nina
== END 2022-08-01 13:30 | disposition home or self-care (01) | DRG 871 ==
LOC: ED 07-30 01:20 → AC 07-30 02:19
PROVIDERS: Student in an Organized Health Care Education/Training Program; Admitting Provider Internal Medicine; Emergency Provider Emergency Medicine; PCP Family Medicine; Referring Provider Emergency Medicine; Visit Provider Internal Medicine
DX: A41.9 Sepsis, unspecified organism (principal); G93.41 Metabolic encephalopathy; N17.9 Acute kidney failure, unspecified; E87.1 Hypo-osmolality and hyponatremia; N10 Acute pyelonephritis; R65.20 Severe sepsis without septic shock; E03.9 Hypothyroidism, unspecified; L94.9 Localized connective tissue disorder, unspecified; B96.20 Unspecified Escherichia coli [E. coli] as the cause of diseases classified elsewhere; Z20.822 Contact with and (suspected) exposure to COVID-19; Z87.891 Personal history of nicotine dependence
CPT/HCPCS: 36415; 70450; 71045; 72125; 80048; 80053; 81001; 82550; 82553; 83605; 84145; 84443; 84484; 85025; 87040; 87077; 87086; 87186; 87635; 87797; 93005; 94640; 96365; 96375; 97116; 97161; 97166; 97530; 97535; 99284; 99285; C9803; J0692; J0696; J1650; J1885; J2405

== ENCOUNTER 2024-02-05 13:57 | Emergency (ER) | payer MEDICARE, OTHER, SELFPAY ==
[2022-07-30 03:42] VITALS: BMI 36.1
[2024-02-05 14:08] VITALS: BP 192/88; PULSE 77; RESP 16; TEMP 36.6; O2SAT 99; BMI 24.8
--- NOTE | 2024-02-05 14:12 | DI.RAD.S_ITS ---
PROCEDURE: XR ANKLE LT MIN 3V INDICATIONS: fall, rolled L ankle TECHNIQUE: 3 views of the ankle were acquired. COMPARISON: None. FINDINGS: Bones: Displaced distal fibular fracture without distinct widening of the syndesmosis. Displaced comminuted medial malleolar fracture. Tibiotalar joint space is maintained. Posterior malleolar fracture is present. Soft tissues: Ankle edema is present.. Achilles tendon appears normal. IMPRESSION: Trimalleolar fracture with maintenance of the tibiotalar joint space. Dictated by: Tonya Christina M.D. on 02/05/2024 at 14:43 Approved by: Tonya Christina M.D. on 02/05/2024 at 14:44
--- NOTE | 2024-02-05 15:00 | ED.LOWEXIN ---
HPI - Extremity Injury (Lower) <Leona Mitchell PA-C - Last Filed: 02/05/24 15:54> General Chief Complaint: Extremity Injury, Lower Stated Complaint: BROKEN L/ANKLE Time Seen by Provider: 02/05/24 14:38 History of Present Illness HPI Narrative: 74-year-old female here in the ED for a left ankle injury that occurred at 12:30 p.m. today. States she was walking several small dogs when she stepped on an uneven gravel surface and rolled her left ankle. She felt immediate pain and has been unable to walk or bear weight on it since then. She denies any prior injuries to the same ankle. She has a history of multiple back surgeries. She has not on any blood thinners and has no history of osteoporosis. She denies any numbness or tingling in the affected extremity. Related Data Home Medications Medication Instructions Recorded Confirmed celecoxib 200 mg capsule 200 mg PO BIDCC #0 caps 06/17/16 07/30/22 clonazepam 0.5 mg tablet (Klonopin) 0.5 mg PO TID ##0 06/17/16 07/30/22 liothyronine 5 mcg tablet (Cytomel) 5 mcg PO QDAY #0 tabs 06/17/16 07/30/22 acetaminophen 325 mg tablet 325 mg PO QID PRN pain 07/30/22 07/30/22 baclofen 20 mg tablet 20 mg PO DAILY 07/30/22 07/30/22 hydroxychloroquine 400 mg PO DAILY 07/30/22 07/30/22 levothyroxine 75 mcg capsule 37.5 mcg PO DAILY 07/30/22 07/30/22 levothyroxine 75 mcg tablet 75 mcg PO DAILY 07/30/22 07/30/22 nifedipine 10 mg capsule 10 mg PO TID PRN Raynaud's 07/30/22 07/30/22 pregabalin 75 mg capsule 75 mg PO QPM 07/30/22 07/30/22 Previous Rx's Medication Instructions Recorded amoxicillin 875 mg-potassium 1 tab PO BID #8 tabs 08/01/22 clavulanate 125 mg tablet prednisone 5 mg tablet 5 mg PO DAILY #30 tabs 08/01/22 hydrocodone 5 mg-acetaminophen 325 1 tab PO Q8H PRN pain #10 tabs 04/13/24 mg tablet Allergies Allergy/AdvReac Type Severity Reaction Status Date / Time adhesive [ADHESIVE] Allergy Unknown RASH Verified 07/30/22 00:21 rofecoxib [From VIOXX] Allergy Unknown MY LEGS Verified 07/30/22 00:21 FELT LIKE THEY COULDNT MOVE Sulfa (Sulfonamide Allergy Unknown RASH Verified 07/30/22 00:21 Antibiotics) [SULFA (SULFONAMIDE ANTIBIOTICS)] Review of Systems <Leona Mitchell PA-C - Last Filed: 02/05/24 15:54> Review of Systems Narrative: GENERAL: Denies chills, fatigue, malaise, fever, sweats. HEENT: Denies sinus pain, ear pain, sore throat, difficulty swallowing, dizziness. RESPIRATORY: Denies dyspnea, cough, wheezing, hemoptysis, sputum. CARDIOVASCULAR: Denies chest pain, palpitations, orthopnea, edema, GASTROINTESTINAL: Denies nausea, vomiting, abdominal pain, diarrhea, constipation, melena. : Denies dysuria, frequency, incontinence, hematuria, urinary retention. MUSCULOSKELETAL:+ left ankle injury SKIN: Denies rash, skin lesions, or other NEUROLOGIC: Denies weakness, headache, numbness, change in speech, confusion, seizures, incoordination. PSYCHIATRIC: No concerning psychosocial issues. 12 point review of systems is negative except for those stated above Patient History <Leona Mitchell PA-C - Last Filed: 02/05/24 15:54> Medical History (Updated 02/05/24 @ 15:29 by Leona Mitchell PA-C) Mycoplasma infection Social History household members: spouse and children Smoking Status: Former smoker alcohol intake: former Smoking Status: Former smoker alcohol intake frequency: 0-2 drinks per day Substance Use Type: does not use Exam <Leona Mitchell PA-C - Last Filed: 02/05/24 15:54> Narrative Exam Narrative: GENERAL: Well-developed, well-nourished, appears stated age. In no acute distress HEAD: Atraumatic. Normocephalic. EYES: Pupils equal round and reactive. Extraocular motions intact. No scleral icterus. No injection or drainage. ENT: Nose without bleeding, purulent drainage. Airway patent. NECK: Trachea midline. Non tender RESPIRATORY: Respiratory rate and effort normal EXTREMITIES: Left ankle with marked swelling and ecchymosis especially around both malleolar areas. Normal distal pulses, normal sensation, normal cap refill. Able to wiggle all 5 toes. Range of motion impaired due to pain. Unable to bear weight. No proximal tib-fib or knee tenderness or swelling. NEURO: AOx3. SKIN: No rash or erythema of visible areas Initial Vital Signs Initial Vital Signs: Vital Signs Temperature 97.8 F 02/05/24 14:08 Pulse Rate 77 02/05/24 14:08 Respiratory Rate 16 02/05/24 14:08 Blood Pressure 192/88 H 02/05/24 14:08 Pulse Oximetry 99 02/05/24 14:08 Oxygen Delivery Method Room Air 02/05/24 14:08 <Althea Salcedo DO - Last Filed: 02/06/24 09:36> Initial Vital Signs Initial Vital Signs: Vital Signs Temperature 97.8 F 02/05/24 14:08 Pulse Rate 77 02/05/24 14:08 Respiratory Rate 16 02/05/24 14:08 Blood Pressure 192/88 H 02/05/24 14:08 Pulse Oximetry 99 02/05/24 14:08 Oxygen Delivery Method Room Air 02/05/24 14:08 Procedures <Leona Mitchell PA-C - Last Filed: 02/05/24 15:54> Orthopedic Splinting/Casting Injury #1: Time of procedure: 15:20 Side: left Lower Extremity Injury Location: ankle Lower Extremity Immobilizer: posterior splint and stirrup splint Other Orthopedic Equipment: crutches Post splinting neuro exam: intact Post splinting vascular exam: intact Placed by: Nursing (and tech) Course <Leona Mitchell PA-C - Last Filed: 02/05/24 15:54> Orders Ordered: Discontinued Medications Hydrocodone Bitart/Acetaminophen (Hydrocodone/Acet 5/325 Tablet) 1 tab PO NOW ONE Stop: 02/05/24 15:24 Last Admin: 02/05/24 15:41 Dose: 1 tab Documented By: LIZA Bacitracin (Bacitracin Oint 0.9 Gm Pckt) 1 applic TOP NOW ONE Stop: 02/05/24 15:15 Last Admin: 02/05/24 15:17 Dose: 1 applic Documented By: LIZA Vital Signs Vital signs: Vital Signs - 8 hr 02/05/24 14:08 Temperature 97.8 F Pulse Rate 77 Respiratory Rate 16 Blood Pressure 192/88 H Pulse Oximetry 99 Oxygen Delivery Method Room Air <Althea Salcedo DO - Last Filed: 02/06/24 09:36> Orders Ordered: Discontinued Medications Hydrocodone Bitart/Acetaminophen (Hydrocodone/Acet 5/325 Tablet) 1 tab PO NOW ONE Stop: 02/05/24 15:24 Last Admin: 02/05/24 15:41 Dose: 1 tab Documented By: LIZA Bacitracin (Bacitracin Oint 0.9 Gm Pckt) 1 applic TOP NOW ONE Stop: 02/05/24 15:15 Last Admin: 02/05/24 15:17 Dose: 1 applic Documented By: LIZA Vital Signs Vital signs: Vital Signs - 8 hr 02/05/24 14:08 Temperature 97.8 F Pulse Rate 77 Respiratory Rate 16 Blood Pressure 192/88 H Pulse Oximetry 99 Oxygen Delivery Method Room Air MDM - Extremity Injury (Lower) <Leona Mitchell PA-C - Last Filed: 02/05/24 15:54> Imaging Data Extremity x-ray #1: Radiologist's Impression: [place] [address] XRay Report Signed Patient: Jocelin Lopez MR#: [id number] : 1950 Acct:[id number] Age/Sex: 74 / F Date of Service: 02/05/24 Loc: ED Accession Number: [id number] Procedure: XR ankle LT min 3V Ordering Provider: Althea Salcedo D.O. PROCEDURE: XR ANKLE LT MIN 3V INDICATIONS: fall, rolled L ankle TECHNIQUE: 3 views of the ankle were acquired. COMPARISON: None. FINDINGS: Bones: Displaced distal fibular fracture without distinct widening of the syndesmosis. Displaced comminuted medial malleolar fracture. Tibiotalar joint space is maintained. Posterior malleolar fracture is present. Soft tissues: Ankle edema is present.. Achilles tendon appears normal. IMPRESSION: Trimalleolar fracture with maintenance of the tibiotalar joint space. Dictated by: Tonya Christina M.D. on 02/05/2024 at 14:43 Approved by: Tonya Christina M.D. on 02/05/2024 at 14:44 MDM Narrative Medical decision making narrative: Patient has sustained a trimalleolar fracture of the left ankle which is considered an unstable fracture. Distal pulses, sensation, and cap refill are all intact. She does not have any other injuries to the foot or proximal left leg. Orthopedist Dr. Ramírez consulted who agrees this is an unstable fracture that will require surgery. He recommends a posterior splint with stirrups and for patient to ice and elevate as much as possible in the next few days. This was placed by the tech and RN and checked by me afterwards. CMS intact. Patient is to contact orthopedic office on Wednesday to arrange consultation and surgery. Rx for [place] given for pain. Discharge Plan Departure Patient Disposition: Home Clinical Impression: Closed trimalleolar fracture of ankle Qualifiers: Encounter type: initial encounter Laterality: left Qualified Code(s): S82.852A - Displaced trimalleolar fracture of left lower leg, initial encounter for closed fracture Instructions: DI for Ankle Fracture Activity Restrictions/Additional Instructions: Thank you for choosing us to care for you today. You have sustained a left ankle fracture known as a trimalleolar fracture. This type of fracture is unstable and will require surgical repair. You have been placed in a splint and you are to be nonweightbearing. Please elevate and ice her ankle as much as possible throughout the day. Please call [facility] on Wednesday to schedule your consultation and surgery. You have been prescribed pain medication. Please take this as needed for severe pain and otherwise you can take Tylenol 500 mg when the pain is less severe. Prescriptions: New hydrocodone-acetaminophen 5-325 mg tablet 1 tab PO Q8H PRN (Reason: pain) Qty: 10 0RF No Action celecoxib 200 MG capsule 200 mg PO BIDCC Qty: 0 clonazepam [Klonopin] 0.5 MG tablet 0.5 mg PO TID Qty: 0 liothyronine [Cytomel] 5 MCG tablet 5 mcg PO QDAY Qty: 0 baclofen 20 mg tablet 20 mg PO DAILY Patient Comments: take 1 tablet by mouth once daily if needed levothyroxine 75 mcg tablet 75 mcg PO DAILY Patient Comments: TAKE 1 TABLET BY MOUTH ONCE DAILY FOR 6 DAYS, THEN TAKE 1/2 TABLET ON SUNDAYS Rx Instructions: Wednesday thru Sat pregabalin 75 mg capsule 75 mg PO QPM Patient Comments: TAKE 1 CAPSULE BY MOUTH ONCE DAILY AT NIGHT hydroxychloroquine 400 mg PO DAILY Rx Instructions: take with prednisone acetaminophen 325 mg Tablet 325 mg PO QID PRN (Reason: pain) nifedipine 10 mg Capsule 10 mg PO TID PRN (Reason: Raynaud's) levothyroxine 75 mcg Capsule 37.5 mcg PO DAILY Rx Instructions: on Wednesday prednisone 5 mg Tablet 5 mg PO DAILY Qty: 30 0RF amoxicillin-pot clavulanate 875-125 mg tablet 1 tab PO BID Qty: 8 0RF Referrals: Jill Khalil MD [Physician] - As soon as possible (Trimalleolar fracture of left ankle) Miscellaneous,MD Natalie [Primary Care Provider] - Stand Alone Forms: Patient Portal/API ED Sign-out <Althea Salcedo DO - Last Filed: 02/06/24 09:36> Cosign ED Attending Bea Attestation: I was immediately available in the department for consultation.
[2024-02-05] MEDS: BACITRACIN OINT 0.9 GM PCKT 1 APPLIC TOP (15:17)
[2024-02-05] MEDS: HYDROCODONE/ACET 5/325 TABLET 1 TAB PO (15:41)
[2024-02-05 15:52] VITALS: BP 184/84; PULSE 72; RESP 20; O2SAT 99
== END 2024-02-05 15:54 | disposition home or self-care (01) ==
PROVIDERS: Emergency Provider Physician Assistant
DX: S82.852A Displaced trimalleolar fracture of left lower leg, initial encounter for closed fracture (principal); X50.1XXA Overexertion from prolonged static or awkward postures, initial encounter
CPT/HCPCS: 73610; 99283

== ENCOUNTER 2024-02-16 11:51 | Day surgery (SDC) | payer MEDICARE, OTHER, SELFPAY ==
[2022-07-30 03:42] VITALS: BMI 36.1
[2024-02-08 13:47] VITALS: BMI 36.6
[2024-02-16] VITALS (15 sets, daily range): BP systolic 128–162; BP diastolic 52–80; PULSE 70–87; RESP 10–17; TEMP 36.6–37; O2SAT 93–99; BMI 28.1
--- NOTE | 2024-02-16 | DI.RAD.S_ITS ---
PROCEDURE: XR ANKLE LT 2V INDICATIONS: ORIF TECHNIQUE: 5 intraoperative fluoroscopic images COMPARISON: [facility], CR, XR ANKLE LT MIN 3V, 02/05/2024, 14:18. FINDINGS: Bones: Suboptimal lateral view. On the AP and oblique view, the lateral surgical plate and screw fixation with transsyndesmotic screw of the lateral malleolus fracture is grossly intact. ORIF of the medial malleolus fracture is intact with no perihardware lucency to suggest hardware loosening. Soft tissues: No tibiotalar joint effusion. Achilles tendon appears normal. IMPRESSION: Suboptimal lateral view limits evaluation. Within these limitations, the ORIF of the trimalleolar fracture is grossly intact. Please see operative report for details and recommend short term interval radiographic follow-up. Dictated by: Sameer Mena M.D. on 02/17/2024 at 9:23 Approved by: Sameer Mena M.D. on 02/17/2024 at 9:32
[2024-02-16] MEDS: GABAPENTIN 600 MG TABLET PO (14:07)
[2024-02-16] MEDS: ACETAMINOPHEN 325 MG TABLET 975 MG PO (14:08)
--- NOTE | 2024-02-16 14:51 | PM.PREOP ---
Pre-operative Note Interval Note History & Physical reviewed/Exam performed by Physician: Yes Changes to H&P: No
[2024-02-16] MEDS: CEFAZOLIN 2 GM/100 ML PREMIX 100 ML IV (15:05)
--- NOTE | 2024-02-16 15:31 | SUR.OPER ---
Supine on padded OR bed, head on pillow, arms secured on padded arm boards at <90 degrees abduction, legs uncrossed, safety belt at thigh, tape over blanket over lower RIGHT leg. LEFT LEG HELD ON FIELD.
[2024-02-16] MEDS: LACTATED RINGERS 1,000 ML 42 ML IV (15:32)
[2024-02-16] MEDS: BUPIVACAINE 0.25% (PF) 30 ML, EPINEPHrine 0.15 MG INJ (15:41)
[2024-02-16] MEDS: HYDROMORPHONE 1 MG INJ IV ×3 (17:11→17:26)
[2024-02-16] MEDS: GABAPENTIN 300 MG CAPSULE PO (17:14)
[2024-02-16] MEDS: OXYCODONE IR 5 MG TABLET PO (17:14)
--- NOTE | 2024-02-16 17:27 | P.OP_ITS ---
Operative Date/Time/Diagnoses Date of procedure: 02/16/24 Time of procedure: 16:00 Pre-op diagnosis: Closed trimalleolar ankle fracture left, syndesmotic disruption left ankle Post-op diagnosis: same Procedure & Clinicians Procedure: Open reduction internal fixation trimalleolar ankle fracture without fixation posterior lip. CPT code 47896 left Open reduction internal fixation syndesmosis left ankle CPT code 19507 Same procedure as scheduled: Yes Indications: Patient is a 74-year-old female that had a fall on 02/05/2024 and sustained a displaced left trimalleolar ankle fracture. This was an unstable ankle fracture pattern with comminution and intra-articular extension. She was indicated for open reduction internal fixation to restore alignment and reduce the risk of posttraumatic arthritis and prolonged dysfunction. The risks and benefits of the procedure have been discussed with the patient and given the opportunity to ask questions. The risks of surgery include but are not limited to infection, malunion, nonunion, persistence of pain, damage to nerves and blood vessels, posttraumatic arthritis, DVT, PE, cardiopulmonary complications and . The patient expressed a thorough understanding of the risks and benefits of surgery and has elected to proceed. Consent was signed in the office today. Surgeon: Jill Khalil Click Yes if Unassisted: Yes Anesthesia Type: General, Peripheral nerve block and Local Operative Notes Findings: Comminuted small distal medial malleolus fracture was reduced and stabilized with a cerclage wire construct due to the extremely distal nature of the fracture. Lateral malleolus at the level of the syndesmosis was reduced and stabilized with a 6 hole 1/3 tubular plate from the Arthrex set. Nonlocking screws were used proximally and locking screws distally to use prominence. The syndesmosis was unstable and there was a small posterior posterior malleolus fracture which is also a surrogate for a syndesmotic instability. Small p osterior malleolus fracture was treated closed. The syndesmosis was reduced and treated with a tricortical 3.5 screw. Closure Type: primary Specimen(s): none sent Prosthetic devices, grafts, tissues, transplants, or devices: Lateral malleolus Arthrex 1/3 tubular plate 6 holes thumb a distal 3.5 locking screws proximally 3.5 nonlocking screws. Syndesmosis 3.5 x 44mm nonlocking screw Medial malleolus K-wires and 20 gauge cerclage wire utilizing a 30 mm 40.0 cancellous solid screw and washer as a post Estimated Blood Loss (mL): 50 Blood products transfused: none Tourniquet time (min): 4 Procedure in detail: Patient was seen in the preoperative area the site of surgery was marked informed consent confirmed. This was the left lower extremity. She underwent a regional block by the anesthesia team for postoperative pain control. She was then brought back to the operating room by the anesthesia team positioned supine on operative table. A well-padded thigh tourniquet was applied. The left lower extremity was prepped and draped in the standard sterile fashion a formal time- out procedure was performed confirming the patient's side and site of surgery administration of appropriate preoperative antibiotic. All were agreement. Attention was turned to the left leg. The Esmarch was used for exsanguination the tourniquet was raised on the thigh. Incisions were marked on the leg over the medial malleolus and lateral malleolus. Incision was made laterally through the skin subcutaneous tissue down the level of the bone. Shortly thereafter was noted that the tourniquet became venous the patient's blood pressure elevated. The tourniquet was released. The patient's blood pressure was managed by the anesthesia team but the tourniquet was not raised up for the remainder of the procedure for a total tourniquet time of 4 minutes. Attention was turned to the lateral malleolus dissection was taken down through the skin and subcutaneous tissue down to the level of the fibula periosteum. The joint level fibula fracture was identified. Bone was fairly osteoporotic. Careful dissection was taken around the edges of the bone to reflect back the periosteum. Pointed reduction and lobster claw clamps were then used to reduce the fracture and hold it in place. A 6 hole 1/3 tubular plate was fashioned posterolateral at the posterior apex of the fibula fracture as an antiglide plate. A 1st nonlocking screw was placed at this apex through the 3rd hole this sucked the plate down to bone and held the fracture reduced. The clamps were then able to be maneuvered out of the way and the rest of the screws were able to be placed with locking screws distally in the metaphyseal bone and nonlocking screws proximally. This anatomically reduced the distal fibula. This was checked on intraoperative fluoroscopy. Attention was then turned medially to the medial malleolus a separate incision was made over the medial malleolus and dissected down to the distal tibia and the level of the fracture. Periosteum was reflected at the level of the fracture site. Care was taken to avoid the saphenous vein and nerve. One branch was bleeding and was cauterized. Fracture was identified. This was gaped open and the joint was irrigated. The visualized portion of the talus was intact. There was a separate comminuted piece of the distal medial malleolus fracture that was carefully reduced. This was carefully then reduced back to the rest of the distal tibia and held with a pointed reduction clamp. This was checked on AP mortise and lateral x-rays for anatomic alignment next K-wires were placed anteriorly and posteriorly in the medial malleolus fragment and confirmed on AP and lateral fluoroscopy. These were carefully placed in parallel with space between for a post screw. Once this was completed post screw was drilled and advanced partially with a washer. Next the 20 gauge wire was cut into 2 small pieces and the cerclage was fashioned this was carefully twisted down to tighten the reduction on the medial malleolus fracture. Once this was completed the post screw was advanced down to bone with a washer securing the fixation. At this point the metal Laguerre tip suction was used to help bend the ends of the K-wires and then cut these down 2 hooks which were then turned inwards over the cerclage wire and tamped down into the bone to reduce prominence and as a final fixation. This was checked on AP mortise and lateral x-rays and confirmed on visual inspection to have no prominent hardware. The final cerclage wires were then cut and carefully tamped down to keep out prominence as well. This completed the reduction procedure of the medial malleolus. Attention was then turned back to the syndesmosis this was found to be unstable. The posterior malleolus was treated closed. The syndesmosis was thumb reduced under open visualization and held in place. A 2.5 drill was used after removal of the initial 3rd hole nonlocking screw from the distal fibular plate and then drilled tetra cortical and a tricortical 3.5 screw was placed for syndesmotic fixation. This was confirmed on AP mortise and lateral x-rays for appropriate alignment and fracture reduction. Once this was completed the wounds were irrigated and closed with 2-0 Vicryl, 4-0 Monocryl and 3-0 nylon suture. Local anesthetic was administered. All counts were correct. The patient was placed into a sterile dressing with Xeroform gauze Webril and a posterior and U splint in neutral position. Patient was woken from anesthesia and taken to the recovery room in good condition there were no immediate complications from this procedure. All counts were correct. Complications: none Post-operative Condition: stable Disposition: PACU Plan for aftercare: Nonweightbearing or touchdown for balance only x6 weeks. In 3 weeks splint will be removed. Sutures will be removed if appropriate. Patient will be placed into a walking boot but will remain nonweightbearing or just touchdown for balance until 6 weeks postop. We will use aspirin for DVT prophylaxis, 325 enteric-coated once daily x6 weeks. A physical therapy prescription was sent but we will not start this until approximately 6 weeks postop.
[2024-02-16] MEDS: BENZOCAINE/MENTHOL 1 LOZ PKT 1 EACH PO (17:55)
[2024-02-16] MEDS: KETOROLAC 30 MG/ML VIAL 15 MG IV (17:56)
== END 2024-02-16 18:46 | disposition home or self-care (01) ==
PROVIDERS: PCP Family Medicine; Referring Provider Orthopaedic Surgery Foot and Ankle Surgery; Visit Provider Orthopaedic Surgery Foot and Ankle Surgery
PROC: (CPT 27822; principal; 2024-02-16 13:45)
DX: S82.852A Displaced trimalleolar fracture of left lower leg, initial encounter for closed fracture (principal); S93.432A Sprain of tibiofibular ligament of left ankle, initial encounter; G89.18 Other acute postprocedural pain
CPT/HCPCS: 27822; 27829; 64450; 73600; 76000; C1776; C1713; J0171; J0360; J0690; J1100; J1170; J1885; J2704; J3010

== ENCOUNTER 2024-02-20 20:51 | Inpatient (IN) | payer MEDICARE, OTHER, SELFPAY ==
[2022-07-30 03:42] VITALS: BMI 36.1
[2024-02-20] VITALS (9 sets, daily range): BP systolic 130–187; BP diastolic 63–86; PULSE 73–100; RESP 16; TEMP 37.3; O2SAT 94–98; BMI 28.3
--- NOTE | 2024-02-20 21:04 | DI.RAD.S_ITS ---
PROCEDURE: XR CHEST 1V INDICATIONS: suspected sepsis TECHNIQUE: One view of the chest was acquired. COMPARISON: [facility], CR, XR CHEST 1V, 07/30/2022, 0:47. FINDINGS: Surgical changes and devices: None. Lungs and pleura: Lungs are clear. No pleural effusions or pneumothorax. Mediastinum: Mediastinal contours appear normal. Heart size is enlarged. Bones and chest wall: No suspicious bony lesions. Overlying soft tissues appear unremarkable. IMPRESSION: No acute pulmonary process. Dictated by: Tonya Christina M.D. on 02/20/2024 at 21:47 Approved by: Tonya Christina M.D. on 02/20/2024 at 21:48
[2024-02-20 22:05] LABS: Add Manual Diff / Slide Review NO; Basophils Absolute Auto 0 /uL (0-100); Basophils Percent Auto 0.3 % (0-2); Eosinophils Absolute Auto 100 /uL (0-450); Eosinophils Percent Auto 1.5 % (2-4); Hematocrit 30.8 % (36-46); Hemoglobin 10.2 g/dL (12.0-16.0); Lymphocytes Absolute Auto 700 /uL (1100-4500); Lymphocytes Percent Auto 8.7 % (25-40); Mean Corpuscular HGB Conc 33.3 % (30-36); Mean Corpuscular Hemoglobin 30.5 PG (26-34); Mean Corpuscular Volume 91.6 fL (80-100); Monocytes Absolute Auto 900 /uL (0-900); Monocytes Percent Auto 10.9 % (3-14); Neutrophils Absolute Auto 6700 /uL (1500-7000); Neutrophils Percent Auto 78.6 % (50-75); Platelet Count 179 X10^3/uL (150-400); Red Blood Cell Count 3.36 X10^6/uL (4.0-5.2); Red Cell Distribution Width 13.8 % (11.6-14.8); White Blood Cell Count 8.5 X10^3/uL (4.5-11.0)
[2024-02-20 22:10] LABS: Prothrombin Time 11.9 SECONDS (9.4-12.5)
[2024-02-20 22:13] LABS: PTT Partial Thromboplastin Tim 34 SECONDS (25.1-36.5)
[2024-02-20 22:15] LABS: Lactate (Lactic Acid) 1.4 mmol/L (0.7-2.1)
[2024-02-20] MEDS: SODIUM CHLORIDE 0.9% 1,000 ML 1000 ML IV (22:24)
[2024-02-20] MEDS: SODIUM CHLORIDE 0.9% FLUSH 10 ML IV (22:25)
[2024-02-20 22:34] LABS: Alanine Aminotransferase 18 IU/L (<35); Albumin 3.8 g/dL (3.5-5.0); Albumin Globulin Ratio 1.1 (1.0-2.8); Alkaline Phosphatase 95 U/L (38-126); Aspartate Aminotransferase 24 IU/L (14-36); BUN Creatinine Ratio 23.7 (6-22); Bilirubin Total 0.6 mg/dL (0.2-1.3); Blood Urea Nitrogen 14 mg/dL (7-17); Calcium 9.9 mg/dL (8.4-10.2); Carbon Dioxide 26 mmol/L (22-32); Chloride 101 mmol/L (98-107); Estimated Glomerular Filt Rate > 60 mL/min (>60); Globulin 3.4 g/dL (1.7-4.1); Glucose 112 mg/dL (80-110); HEMOLYSIS < 15 (0-50); Lipase 30 U/L (23-300); Sodium 134 mmol/L (137-145); Total Protein 7.2 g/dL (6.3-8.2)
--- NOTE | 2024-02-20 22:34 | PC.NURSE ---
Pt is alert to name, year, but not date of . She is delayed in trying to recall and repeats things to this RN.
--- NOTE | 2024-02-20 22:39 | DI.CT.S_ITS ---
PROCEDURE: CT HEAD/BRAIN WO CON INDICATIONS: AMS x 12 hrs, no trauma TECHNIQUE: Noncontrast 4.5 mm thick angled axial sections acquired from the foramen magnum to the vertex, with coronal and sagittal reformats. For radiation dose reduction, the following was used: automated exposure control, adjustment of mA and/or kV according to patient size. COMPARISON: [facility], CT, CT HEAD/BRAIN WO CON, 07/30/2022, 0:33. FINDINGS: Image quality: Diagnostic. CSF spaces: Basal cisterns are patent. No extra-axial fluid collections. The ventricles are symmetric in size and shape. Brain: No intracranial bleeds or masses. There is cerebral volume loss for age, with resultant ventricular and sulcal prominence. There are periventricular and deep white matter chronic small vessel ischemic changes. There is intracranial internal carotid artery atherosclerosis. Skull and face: Calvarium and visualized facial bones appear intact, without suspicious lesions. Sinuses: Visualized sinuses and mastoids are clear. IMPRESSION: 1. No acute intracranial process. 2. Moderate atrophy and chronic microvascular ischemic changes. Dictated by: Tonya Christina M.D. on 02/20/2024 at 23:55 Approved by: Tonya Christina M.D. on 02/20/2024 at 23:56
--- NOTE | 2024-02-20 22:46 | ED.FEVER ---
HPI - Fever General Chief Complaint: Fever Stated Complaint: post surg/states altered mental status Time Seen by Provider: 02/20/24 21:34 Source: patient Mode of arrival: Family Vehicle History of Present Illness HPI Narrative: 74-year-old female presents by private vehicle from home for 1 day of ?fever? and altered mental status. History is obtained from at bedside as patient is confused with repetitive speech pattern. Patient underwent surgery of her left ankle for a trimalleolar fracture on 02/15 and has been at home recovering uneventfully until today. Has been states that when she woke up she was confused, acting ?bossy, and very different from her usual. He thought that she just needed to get some more sleep and put her down for a nap. When she woke up she was no better and he decided to bring her in for evaluation. At her baseline patient has no confusion and understands everything that is going on. Related Data Home Medications Medication Instructions Recorded Confirmed celecoxib 200 mg capsule 200 mg PO BIDCC #0 caps 06/17/16 02/21/24 liothyronine 5 mcg tablet (Cytomel) 5 mcg PO QDAY #0 tabs 06/17/16 02/21/24 acetaminophen 325 mg tablet 325 mg PO QID PRN pain 07/30/22 02/21/24 baclofen 20 mg tablet 20 mg PO DAILY 07/30/22 02/21/24 hydroxychloroquine 200 mg tablet 200 mg PO DAILY ##0 07/30/22 02/21/24 levothyroxine 75 mcg tablet 75 mcg PO DAILY 07/30/22 02/21/24 pregabalin 75 mg capsule 100 mg PO BEDTIME 07/30/22 02/21/24 pregabalin 25 mg capsule 25 mg PO QAM 02/14/24 02/21/24 oxybutynin chloride 5 mg 5 mg PO DAILY 02/16/24 02/21/24 tablet,extended release 24 hr Previous Rx's Medication Instructions Recorded hydrocodone 5 mg-acetaminophen 325 1 tab PO Q8H PRN pain #10 tabs 02/05/24 mg tablet Allergies Allergy/AdvReac Type Severity Reaction Status Date / Time adhesive [ADHESIVE] Allergy Unknown RASH Verified 02/20/24 21:02 rofecoxib [From VIOXX] Allergy Unknown MY LEGS Verified 02/20/24 21:02 FELT LIKE THEY COULDNT MOVE Sulfa (Sulfonamide Allergy Unknown RASH Verified 02/20/24 21:02 Antibiotics) [SULFA (SULFONAMIDE ANTIBIOTICS)] Sutures Allergy Itching Verified 02/20/24 21:02 with one surgery Review of Systems Review of Systems Narrative: See HPI Patient History Medical History Sepsis (2021) Asthma Anesthesia complication Hypothyroidism Mycoplasma infection Surgical History History of carpal tunnel release of both wrists (1979) History of hysterectomy History of back surgery Social History household members: spouse and children Smoking Status: Former smoker alcohol intake: former Smoking Status: Former smoker alcohol intake frequency: 0-2 drinks per day Substance Use Type: does not use Exam Initial Vital Signs Initial Vital Signs: Vital Signs Temperature 99.2 F 02/20/24 20:54 Pulse Rate 73 02/20/24 20:54 Respiratory Rate 16 02/20/24 20:54 Blood Pressure 187/81 H 02/20/24 20:54 Pulse Oximetry 94 02/20/24 20:54 Oxygen Delivery Method Room Air 02/20/24 20:54 Const: Awake, alert, no acute distress, nontoxic appearing Cardiac: regular rate, regular rhythm RESP: unlabored, clear bilaterally, no wheezing GI: Soft, nontender, nondistended, no rebound, no guarding MSK: Left lower extremity in clean cast l Skin: Warm, Dry, intact, no rashes Neuro: AO x1, CN II-XII grossly intact, moves all extremities Course Orders Ordered: ED Orders 02/20/24 21:04 XR chest 1V Stat EKG-12 Lead Stat RT Consult Eval and Treat NOW 02/20/24 21:53 Complete Blood Count AUTO DIFF Stat Comprehensive Metabolic Panel Stat Lactate (Lactic Acid) Stat Lipase Stat PTT Partial Thromboplastin Richy Stat Procalcitonin Stat Prothrombin Time INR Stat 02/20/24 22:39 CT head/brain wo con Stat 02/20/24 22:49 Urinalysis and Microscopic Stat 02/20/24 23:05 Blood Culture Stat 02/20/24 23:56 Covid-19 + FLU A/B + RSV - PCR Stat 02/21/24 01:13 Urine Drug Screen, Rapid Stat 02/21/24 02:00 Ammonia (NH3) Stat Acetaminophen (Acetaminophen 325 Mg Tablet) 650 mg PO Q6H PRN PRN Reason: Fever/Mild Pain (1-3) Hydrocodone Bitart/Acetaminophen (Hydrocodone/Acet 5/325 Tablet) 1 tab PO Q8H PRN PRN Reason: pain Baclofen (Baclofen 10 Mg Tablet) 20 mg PO DAILY [facility] Calcium Carbonate (Calcium Carbonate 500 Mg Tab) 1,000 mg PO Q4HR PRN PRN Reason: Dyspepsia Celecoxib (Celecoxib 200 Mg Capsule) 200 mg PO BIDWM [facility] Last Admin: 02/21/24 03:56 Dose: Not Given Documented By: AB Enoxaparin Sodium (Enoxaparin 40 Mg/0.4 Ml Syringe) 40 mg SUBCUT DAILY [facility] Haloperidol (Haloperidol 5 Mg/Ml Vial) 5 mg IV Q4HR PRN PRN Reason: Agitation Last Admin: 02/21/24 04:15 Dose: 5 mg Documented By: AB Hydroxychloroquine Sulfate (Hydroxychloroquine 200 Mg Tablet) 200 mg PO DAILY [facility] Ibuprofen (Ibuprofen 400 Mg Tablet) 400 mg PO Q4H PRN PRN Reason: Pain, Mild (1-3) Ketorolac Tromethamine (Ketorolac 30 Mg/Ml Vial) 30 mg IV Q6H PRN PRN Reason: Pain, Moderate (4-6) Stop: 02/26/24 03:44 Last Admin: 02/21/24 04:15 Dose: 30 mg Documented By: AB Levothyroxine Sodium (Levothyroxine 75 Mcg Tablet) 75 mcg PO DAILY [facility] Naloxone HCl (Naloxone 0.4 Mg/Ml Vial) 0.2 mg IV Q2MIN PRN PRN Reason: Opiate Reversal Naloxone HCl (Naloxone 0.4 Mg/Ml Vial) 0.2 mg IV Q2MIN PRN PRN Reason: Opiate Reversal Ondansetron HCl (Ondansetron 4 Mg Odt) 4 mg SL NOW PRN PRN Reason: Nausea And Vomiting Ondansetron HCl (Ondansetron 4 Mg/2 Ml Inj) 4 mg IV Q8HR PRN PRN Reason: Nausea And Vomiting Pregabalin (Pregabalin 75 Mg Capsule) 100 mg PO BEDTIME [facility] Pregabalin (Pregabalin 25 Mg Capsule) 25 mg PO DAILY [facility] Sodium Chloride (Sodium Chloride 0.9% Flush) 10 ml IV BID [place] Sodium Chloride (Sodium Chloride 0.9% Flush) 10 ml IV PRN PRN PRN Reason: Flush Last Admin: 02/20/24 22:25 Dose: 10 ml Documented By: CASIMIRO Discontinued Medications Sodium Chloride (Normal Saline 0.9%) 1,000 mls @ 1,000 mls/hr IV BOLUS ONE Stop: 02/20/24 22:03 Last Infusion: 02/20/24 23:51 Dose: Infused Documented By: Admin: 02/20/24 22:24 Dose: 1,000 mls/hr Documented By: CASIMIRO Ondansetron HCl (Ondansetron 4 Mg/2 Ml Inj) 4 mg IV NOW PRN PRN Reason: Nausea And Vomiting Last Admin: 02/21/24 04:17 Dose: 4 mg Documented By: AB Vital Signs Vital signs: Vital Signs - 8 hr 02/20/24 20:54 02/20/24 22:05 02/20/24 22:07 Temperature 99.2 F Pulse Rate 73 94 H Respiratory Rate 16 Blood Pressure 187/81 H 130/63 Pulse Oximetry 94 95 Oxygen Delivery Method Room Air 02/20/24 22:07 02/20/24 22:17 02/20/24 22:17 Temperature Pulse Rate 92 H 92 H Respiratory Rate Blood Pressure 170/86 H Pulse Oximetry 96 96 Oxygen Delivery Method 02/20/24 22:30 02/20/24 22:30 02/20/24 23:00 Temperature Pulse Rate 87 Respiratory Rate Blood Pressure 156/69 H 166/72 H Pulse Oximetry 96 Oxygen Delivery Method 02/20/24 23:00 02/20/24 23:16 02/20/24 23:16 Temperature Pulse Rate 92 H 90 Respiratory Rate Blood Pressure 159/71 H Pulse Oximetry 98 Oxygen Delivery Method 02/20/24 23:30 02/20/24 23:31 02/20/24 23:31 Temperature Pulse Rate 99 H 100 H Respiratory Rate Blood Pressure 160/67 H Pulse Oximetry 98 98 Oxygen Delivery Method Room Air 02/21/24 00:00 02/21/24 00:04 02/21/24 00:04 Temperature Pulse Rate 91 H 91 H Respiratory Rate Blood Pressure 153/67 H Pulse Oximetry 96 91 Oxygen Delivery Method 02/21/24 00:30 02/21/24 01:00 Temperature Pulse Rate 86 93 H Respiratory Rate 17 Blood Pressure Pulse Oximetry 97 96 Oxygen Delivery Method Room Air Room Air MDM - Fever Differential Diagnosis Differential diagnosis: Likely cellulitis, fever of unknown origin and gastroenteritis Lab Data 02/20/24 21:53 02/20/24 21:53 Labs: Lab Results 02/20/24 02/20/24 02/20/24 Range/Units 21:53 22:49 22:49 WBC 8.5 (4.5-11.0) X10^3/uL RBC 3.36 L (4.0-5.2) X10^6/uL Hgb 10.2 L (12.0-16.0) g/dL Hct 30.8 L (36-46) % MCV 91.6 (80-100) fL MCH 30.5 (26-34) PG MCHC 33.3 (30-36) % RDW 13.8 (11.6-14.8) % Plt Count 179 (150-400) X10^3/uL Neut % (Auto) 78.6 H (50-75) % Lymph % (Auto) 8.7 L (25-40) % [place] % (Auto) 10.9 (3-14) % Eos % (Auto) 1.5 L (2-4) % Baso % (Auto) 0.3 (0-2) % Neut # (Auto) 6700 (8707-3016) /uL Lymph # (Auto) 700 L (5807-9539) /uL [place] # (Auto) 900 (0-900) /uL Eos # (Auto) 100 (0-450) /uL Baso # (Auto) 0 (0-100) /uL PT 11.9 (9.4-12.5) SECONDS INR 1.0 (0.9-1.3) APTT 34 (25.1-36.5) SECONDS Sodium 134 L (137-145) mmol/L Potassium 4.0 (3.4-5.1) mmol/L Chloride 101 (98-107) mmol/L Carbon Dioxide 26 (22-32) mmol/L BUN 14 (7-17) mg/dL Creatinine 0.59 (0.52-1.04) mg/dL Estimated GFR > 60 (>60) mL/min BUN/Creatinine Ratio 23.7 H (6-22) Glucose 112 H (80-110) mg/dL Lactate 1.4 (0.7-2.1) mmol/L Calcium 9.9 (8.4-10.2) mg/dL Total Bilirubin 0.6 (0.2-1.3) mg/dL AST 24 (14-36) IU/L ALT 18 (<35) IU/L Alkaline Phosphatase 95 (38-126) U/L Total Protein 7.2 (6.3-8.2) g/dL Albumin 3.8 (3.5-5.0) g/dL Globulin 3.4 (1.7-4.1) g/dL Albumin/Globulin Ratio 1.1 (1.0-2.8) Lipase 30 (23-300) U/L Procalcitonin 0.41 (<0.5) ng/mL Urine Color Yellow Urine Appearance Clear Urine pH 6.0 Normal (4.5-8.0) Ur Specific [place] 1.010 (1.000-1.035) Urine Protein Negative (Negative) Urine Glucose (UA) Negative (Negative) g/dL Urine Ketones Negative (NEGATIVE) Urine Occult Blood Negative (Negative) Urine Nitrate Negative (Negative) Urine Bilirubin Negative (NEGATIVE) Urine Urobilinogen 0.2 (0.2) E.U./dL Ur Leukocyte Esterase Negative (NEGATIVE) Urine RBC 0-1/hpf (0-5/HPF) Urine WBC None seen (0-5/HPF) Ur Squamous Epith Cells None seen (0-5/HPF) Ur Transition Epith Cell 0-1/hpf (0-5/HPF) Urine Bacteria None seen (None) Ur Culture Indicated? Cult not indicated Vol Urine Centrifuged 10ml (spun) U Opiates 300ng/mL cut Negative (Negative) Ur Oxycodone Screen Positive H (Negative) Urine Methadone Screen Negative (Negative) Ur Barbiturates Screen Negative (Negative) U Tricyclic Antidepress Negative (Negative) Ur Phencyclidine Scrn Negative (Negative) Ur Amphetamines Screen Negative (Negative) U Methamphetamines Scrn Negative (Negative) Ur MDMA Scrn (Ecstasy) Negative (Negative) U Benzodiazepines Scrn Negative (Negative) Urine Cocaine Screen Negative (Negative) U Marijuana (THC) Screen Negative (Negative) Urine Specific [place] Normal (Normal) Ur Creatinine Normal (Normal) SARS-CoV-2 (PCR) (Negative) Influenza A (RT-PCR) (NEGATIVE) Influenza B (RT-PCR) (NEGATIVE) RSV (PCR) (Negative) 02/20/24 Range/Units 23:56 WBC (4.5-11.0) X10^3/uL RBC (4.0-5.2) X10^6/uL Hgb (12.0-16.0) g/dL Hct (36-46) % MCV (80-100) fL MCH (26-34) PG MCHC (30-36) % RDW (11.6-14.8) % Plt Count (150-400) X10^3/uL Neut % (Auto) (50-75) % Lymph % (Auto) (25-40) % [place] % (Auto) (3-14) % Eos % (Auto) (2-4) % Baso % (Auto) (0-2) % Neut # (Auto) (2976-6797) /uL Lymph # (Auto) (4011-2039) /uL [place] # (Auto) (0-900) /uL Eos # (Auto) (0-450) /uL Baso # (Auto) (0-100) /uL PT (9.4-12.5) SECONDS INR (0.9-1.3) APTT (25.1-36.5) SECONDS Sodium (137-145) mmol/L Potassium (3.4-5.1) mmol/L Chloride (98-107) mmol/L Carbon Dioxide (22-32) mmol/L BUN (7-17) mg/dL Creatinine (0.52-1.04) mg/dL Estimated GFR (>60) mL/min BUN/Creatinine Ratio (6-22) Glucose (80-110) mg/dL Lactate (0.7-2.1) mmol/L Calcium (8.4-10.2) mg/dL Total Bilirubin (0.2-1.3) mg/dL AST (14-36) IU/L ALT (<35) IU/L Alkaline Phosphatase (38-126) U/L Total Protein (6.3-8.2) g/dL Albumin (3.5-5.0) g/dL Globulin (1.7-4.1) g/dL Albumin/Globulin Ratio (1.0-2.8) Lipase (23-300) U/L Procalcitonin (<0.5) ng/mL Urine Color Urine Appearance Urine pH (4.5-8.0) Ur Specific [place] (1.000-1.035) Urine Protein (Negative) Urine Glucose (UA) (Negative) g/dL Urine Ketones (NEGATIVE) Urine Occult Blood (Negative) Urine Nitrate (Negative) Urine Bilirubin (NEGATIVE) Urine Urobilinogen (0.2) E.U./dL Ur Leukocyte Esterase (NEGATIVE) Urine RBC (0-5/HPF) Urine WBC (0-5/HPF) Ur Squamous Epith Cells (0-5/HPF) Ur Transition Epith Cell (0-5/HPF) Urine Bacteria (None) Ur Culture Indicated? Vol Urine Centrifuged U Opiates 300ng/mL cut (Negative) Ur Oxycodone Screen (Negative) Urine Methadone Screen (Negative) Ur Barbiturates Screen (Negative) U Tricyclic Antidepress (Negative) Ur Phencyclidine Scrn (Negative) Ur Amphetamines Screen (Negative) U Methamphetamines Scrn (Negative) Ur MDMA Scrn (Ecstasy) (Negative) U Benzodiazepines Scrn (Negative) Urine Cocaine Screen (Negative) U Marijuana (THC) Screen (Negative) Urine Specific [place] (Normal) Ur Creatinine (Normal) SARS-CoV-2 (PCR) Negative (Negative) Influenza A (RT-PCR) Flu a negative (NEGATIVE) Influenza B (RT-PCR) Flu b negative (NEGATIVE) RSV (PCR) Negative (Negative) MDM Narrative Medical decision making narrative: Nontoxic patient presenting with 1 day of altered mental status. There was no focal deficits to suggest acute stroke. Has been states patient had fever at home, however she was afebrile here and he reports that a temperature of 99.5? was the highest T recorded at home. Laboratory work is reviewed, entirely unremarkable. No leukocytosis, patient is chronically anemic with hemoglobin 10.2, which is her baseline. Electrolytes within normal limits, ammonia undetectable, liver kidney enzymes normal. Urine drug screen positive for oxycodone, which patient is taking after her surgery. Chest x-ray negative for acute findings, COVID, flu, RSV swabs negative. CT brain unremarkable. Attempted to evaluate patient's cast, however it was covered in hard, on removable cast and wound was not able to be visualized. No evidence of infection on urinalysis. Patient had brief improvement in mental status with IV fluids but she continues to be altered and very different from her reported baseline. We will admit for observation and possible MRI Discharge Plan Departure Patient Disposition: Admitted as Observation Clinical Impression: Acute metabolic encephalopathy Admit Date/Time: 02/21/24 01:12 Admit Provider: Clifton Hatfield
[2024-02-20 22:50] LABS: Procalcitonin 0.41 ng/mL (<0.5)
[2024-02-20 22:59] LABS: Appearance Urine UA CLEAR; Bilirubin Urine UA NEGATIVE (NEGATIVE); Color Urine UA YELLOW; Glucose Urine UA NEGATIVE (Negative); Ketones Urine UA NEGATIVE (NEGATIVE); Leukocyte Esterase Urine UA NEGATIVE (NEGATIVE); Nitrite Urine UA NEGATIVE (Negative); Occult Blood Urine UA NEGATIVE (Negative); Protein Urine UA NEGATIVE (Negative); Urobilinogen Urine UA 0.2 E.U./dL (0.2)
[2024-02-20 23:07] LABS: Bacteria Urine None Seen; RBC Urine 0-1/HPF (0-5/HPF); Squamous Epithelial Cell Urine None Seen (0-5/HPF); Transitional Epi Cells Urine 0-1/HPF (0-5/HPF); Urine Volume 10mL (spun); WBC Urine None Seen (0-5/HPF)
[2024-02-20 23:08] LABS: Culture Indicated Urine Cult Not Indicated
[2024-02-21] VITALS (31 sets, daily range): BP systolic 92–175; BP diastolic 48–71; PULSE 62–101; RESP 12–21; TEMP 35.8–36.9; O2SAT 91–98; BMI 28.3; BMI 28.5
[2024-02-21 00:38] LABS: Influenza A - CEPHEID Flu A NEGATIVE (NEGATIVE); Influenza B - CEPHEID Flu B NEGATIVE (NEGATIVE); Respiratory Syncytial Virus Negative (Negative)
[2024-02-21 00:39] LABS: COVID-19 CEPHEID 4-PLEX PCR Negative (Negative)
--- NOTE | 2024-02-21 01:04 | PC.NURSE ---
cotton padding on splint cut, Dr Muller unable to remove splint completely, pt c/o tenderness to the anterior lower loen and posterior lower ext. foot noted bruised and swollen cap refill <2 sec. splint rewrapped with fantasma, lower ext elevated on pillow
[2024-02-21 01:20] LABS: Ur Creatinine Normal (Normal); Ur Specific Gravity Normal (Normal); Urine Amphetamines Negative (Negative); Urine Cocaine Negative (Negative); Urine Methamphetamines Negative (Negative); Urine Opiates Negative (Negative); Urine THC Negative (Negative); Urine pH Normal (Normal)
[2024-02-21 01:21] LABS: Urine Barbiturates Negative (Negative); Urine Benzodiazepines Negative (Negative); Urine MDMA Negative (Negative); Urine Methadone Negative (Negative); Urine Oxycodone Positive (Negative); Urine Phencyclidine Negative (Negative); Urine Tricyclic Antidepressant Negative (Negative)
[2024-02-21 02:25] LABS: Ammonia (NH3) < 9 umol/L (9-30)
--- NOTE | 2024-02-21 03:46 | P.HP_ITS ---
History of Present Illness History of Present Illness Date Patient Seen: 02/21/24 Time Patient Seen: 03:47 Chief complaint: post surg/states altered mental status Narrative: The pt is a 74 yo who underwent a tri-maleolar ankle fracture repair 4 days ago and since then has become more agitated and confused per husbands report. He states that he hasn't gotten an sleep since the surgery because she is so confused and is at my wits end. The pt is able to answer some questions, but is oriented only to self, and refused to answer other questions only stating that she is in tremendous pain although she wont say where the pain is. Jocelin has undergone several back surgeries in the past and is on several non -narcotic pain meds such a celebrex, Lyrica, gabapentin. Since the surgery the has been giving oxycodone on a regular basis every four hours to help her sleep. The also reports fevers today but there is no fevers recorded since she has been seen here. The pt is demanding pain meds and keeps repeating these demands regardless of the questions being asked. [facility] Medical History Sepsis (2021) Asthma Anesthesia complication Hypothyroidism Mycoplasma infection Surgical History History of carpal tunnel release of both wrists (1979) History of hysterectomy History of back surgery Social History household members: spouse and children Smoking Status: Former smoker alcohol intake: former Meds Home Medications and Allergies Home Medications Medication Instructions Recorded Confirmed Type celecoxib 200 mg capsule 200 mg PO BIDCC #0 caps 06/17/16 02/21/24 History liothyronine 5 mcg tablet (Cytomel) 5 mcg PO QDAY #0 tabs 06/17/16 02/21/24 History acetaminophen 325 mg tablet 325 mg PO QID PRN pain 07/30/22 02/21/24 History baclofen 20 mg tablet 20 mg PO DAILY 07/30/22 02/21/24 History hydroxychloroquine 200 mg tablet 200 mg PO DAILY ##0 07/30/22 02/21/24 History levothyroxine 75 mcg tablet 75 mcg PO DAILY 07/30/22 02/21/24 History pregabalin 75 mg capsule 100 mg PO BEDTIME 07/30/22 02/21/24 History hydrocodone 5 mg-acetaminophen 325 1 tab PO Q8H PRN pain #10 tabs 02/05/24 02/21/24 Rx mg tablet pregabalin 25 mg capsule 25 mg PO QAM 02/14/24 02/21/24 History oxybutynin chloride 5 mg 5 mg PO DAILY 02/16/24 02/21/24 History tablet,extended release 24 hr Allergies Allergy/AdvReac Type Severity Reaction Status Date / Time adhesive [ADHESIVE] Allergy Unknown RASH Verified 02/20/24 21:02 rofecoxib [From VIOXX] Allergy Unknown MY LEGS Verified 02/20/24 21:02 FELT LIKE THEY COULDNT MOVE Sulfa (Sulfonamide Allergy Unknown RASH Verified 02/20/24 21:02 Antibiotics) [SULFA (SULFONAMIDE ANTIBIOTICS)] Sutures Allergy Itching Verified 02/20/24 21:02 with one surgery Exam Vital Signs (past 8 hours): - 02/20/24 20:54 02/20/24 22:05 02/20/24 22:07 Temperature 99.2 F Pulse Rate 73 94 H Respiratory Rate 16 Blood Pressure 187/81 H 130/63 Pulse Oximetry 94 95 Oxygen Delivery Method Room Air 02/20/24 22:07 02/20/24 22:17 02/20/24 22:17 Temperature Pulse Rate 92 H 92 H Respiratory Rate Blood Pressure 170/86 H Pulse Oximetry 96 96 Oxygen Delivery Method 02/20/24 22:30 02/20/24 22:30 02/20/24 23:00 Temperature Pulse Rate 87 Respiratory Rate Blood Pressure 156/69 H 166/72 H Pulse Oximetry 96 Oxygen Delivery Method 02/20/24 23:00 02/20/24 23:16 02/20/24 23:16 Temperature Pulse Rate 92 H 90 Respiratory Rate Blood Pressure 159/71 H Pulse Oximetry 98 Oxygen Delivery Method 02/20/24 23:30 02/20/24 23:31 02/20/24 23:31 Temperature Pulse Rate 99 H 100 H Respiratory Rate Blood Pressure 160/67 H Pulse Oximetry 98 98 Oxygen Delivery Method Room Air 02/21/24 00:00 02/21/24 00:04 02/21/24 00:04 Temperature Pulse Rate 91 H 91 H Respiratory Rate Blood Pressure 153/67 H Pulse Oximetry 96 91 Oxygen Delivery Method 02/21/24 00:30 02/21/24 01:00 02/21/24 01:30 Temperature Pulse Rate 86 93 H 85 Respiratory Rate 17 14 Blood Pressure Pulse Oximetry 97 96 98 Oxygen Delivery Method Room Air Room Air 02/21/24 02:00 Temperature Pulse Rate 98 H Respiratory Rate 21 Blood Pressure Pulse Oximetry 97 Oxygen Delivery Method Oxygen Delivery Method Room Air Const General: anxious, combative and frail appearing Resp Auscultation: clear to auscultation bilaterally Cardio Rate: regular rate Rhythm: regular rhythm Neuro General: patient alert, patient awake, moves all extremities and patient confused Psych Mood: anxious mood and irritable mood Attitude: refuses to answer Thought Process: illogical Objective Labs 02/20/24 21:53 02/20/24 21:53 Labs: Laboratory Results - last 24 hr 02/20/24 02/20/24 02/20/24 21:53 22:49 22:49 WBC 8.5 RBC 3.36 L Hgb 10.2 L Hct 30.8 L MCV 91.6 MCH 30.5 MCHC 33.3 RDW 13.8 Plt Count 179 Neut % (Auto) 78.6 H Lymph % (Auto) 8.7 L [place] % (Auto) 10.9 Eos % (Auto) 1.5 L Baso % (Auto) 0.3 Neut # (Auto) 6700 Lymph # (Auto) 700 L [place] # (Auto) 900 Eos # (Auto) 100 Baso # (Auto) 0 PT 11.9 INR 1.0 APTT 34 Sodium 134 L Potassium 4.0 Chloride 101 Carbon Dioxide 26 BUN 14 Creatinine 0.59 Estimated GFR > 60 BUN/Creatinine Ratio 23.7 H Glucose 112 H Lactate 1.4 Calcium 9.9 Total Bilirubin 0.6 AST 24 ALT 18 Alkaline Phosphatase 95 Ammonia Total Protein 7.2 Albumin 3.8 Globulin 3.4 Albumin/Globulin Ratio 1.1 Lipase 30 Procalcitonin 0.41 Urine Color Yellow Urine Appearance Clear Urine pH 6.0 Normal Ur Specific [place] 1.010 Urine Protein Negative Urine Glucose (UA) Negative Urine Ketones Negative Urine Occult Blood Negative Urine Nitrate Negative Urine Bilirubin Negative Urine Urobilinogen 0.2 Ur Leukocyte Esterase Negative Urine RBC 0-1/hpf Urine WBC None seen Ur Squamous Epith Cells None seen Ur Transition Epith Cell 0-1/hpf Urine Bacteria None seen Ur Culture Indicated? Cult not indicated Vol Urine Centrifuged 10ml (spun) U Opiates 300ng/mL cut Negative Ur Oxycodone Screen Positive H Urine Methadone Screen Negative Ur Barbiturates Screen Negative U Tricyclic Antidepress Negative Ur Phencyclidine Scrn Negative Ur Amphetamines Screen Negative U Methamphetamines Scrn Negative Ur MDMA Scrn (Ecstasy) Negative U Benzodiazepines Scrn Negative Urine Cocaine Screen Negative U Marijuana (THC) Screen Negative Urine Specific [place] Normal Ur Creatinine Normal SARS-CoV-2 (PCR) Influenza A (RT-PCR) Influenza B (RT-PCR) RSV (PCR) 02/20/24 02/21/24 23:56 02:00 WBC RBC Hgb Hct MCV MCH MCHC RDW Plt Count Neut % (Auto) Lymph % (Auto) [place] % (Auto) Eos % (Auto) Baso % (Auto) Neut # (Auto) Lymph # (Auto) [place] # (Auto) Eos # (Auto) Baso # (Auto) PT INR APTT Sodium Potassium Chloride Carbon Dioxide BUN Creatinine Estimated GFR BUN/Creatinine Ratio Glucose Lactate Calcium Total Bilirubin AST ALT Alkaline Phosphatase Ammonia < 9 L Total Protein Albumin Globulin Albumin/Globulin Ratio Lipase Procalcitonin Urine Color Urine Appearance Urine pH Ur Specific [place] Urine Protein Urine Glucose (UA) Urine Ketones Urine Occult Blood Urine Nitrate Urine Bilirubin Urine Urobilinogen Ur Leukocyte Esterase Urine RBC Urine WBC Ur Squamous Epith Cells Ur Transition Epith Cell Urine Bacteria Ur Culture Indicated? Vol Urine Centrifuged U Opiates 300ng/mL cut Ur Oxycodone Screen Urine Methadone Screen Ur Barbiturates Screen U Tricyclic Antidepress Ur Phencyclidine Scrn Ur Amphetamines Screen U Methamphetamines Scrn Ur MDMA Scrn (Ecstasy) U Benzodiazepines Scrn Urine Cocaine Screen U Marijuana (THC) Screen Urine Specific [place] Ur Creatinine SARS-CoV-2 (PCR) Negative Influenza A (RT-PCR) Flu a negative Influenza B (RT-PCR) Flu b negative RSV (PCR) Negative Assessment & Plan Assessment and plan (1) Acute metabolic encephalopathy: Status: Acute Plan I have talked with the ER provider regarding the pt's symptoms and labs and agree with the decision for admission. Her labs were reviewed which showed a normal CBC and electrolytes. During my interview she did seem confused but more from adverse reaction to the narcotics or delirium/ dementia as opposed to infectious causes or stroke like symtpoms. Will proceed with MRI of the head, I think we should be cautious with narcotics in this individual. CT head reviewed showing atrophy consistent with the dementia observed today but no other acute process. The pt is on NSAIDS from previous surgeries probably due to this problem of sensitivities to narcotics. I was unable ot evaluate the foot better but will need to be done later today. Kwasi ordered prn for her confusion.
--- NOTE | 2024-02-21 03:57 | PC.NURSE ---
Pt took her own home medications. After reviewing pt dosing possible issue with multiple bottle of the same medication with different names on meds. At 0345 gave: Tylenol 500 mg 1 tab, Oxycodone 5 mg 1 tab, Celebrex 200 mg 1 tab, Lyrica 125 mg (1-100 mg & 1-25mg), Baclofen 20 mg 1 tab, Hydrochlorquin 200 mg 1 tab.
[2024-02-21] MEDS: KETOROLAC 30 MG/ML VIAL IV ×2 (04:15→14:19)
[2024-02-21] MEDS: HALOPERIDOL 5 MG/ML VIAL IV (04:15)
[2024-02-21] MEDS: ONDANSETRON 4 MG/2 ML INJ IV (04:17)
--- NOTE | 2024-02-21 05:28 | PC.NURSE ---
pt resting quietly with eyes closed resp even and unlabored, at bedside, blood drawn for am labs
[2024-02-21 05:44] LABS: Add Manual Diff / Slide Review NO; Basophils Absolute Auto 0 /uL (0-100); Basophils Percent Auto 0.3 % (0-2); Eosinophils Absolute Auto 100 /uL (0-450); Eosinophils Percent Auto 1.5 % (2-4); Hematocrit 25.5 % (36-46); Hemoglobin 8.6 g/dL (12.0-16.0); Lymphocytes Absolute Auto 600 /uL (1100-4500); Lymphocytes Percent Auto 8.6 % (25-40); Mean Corpuscular HGB Conc 33.9 % (30-36); Mean Corpuscular Hemoglobin 30.9 PG (26-34); Mean Corpuscular Volume 91.4 fL (80-100); Monocytes Absolute Auto 900 /uL (0-900); Neutrophils Absolute Auto 5100 /uL (1500-7000); Neutrophils Percent Auto 76.6 % (50-75); Platelet Count 148 X10^3/uL (150-400); Red Blood Cell Count 2.79 X10^6/uL (4.0-5.2); Red Cell Distribution Width 13.7 % (11.6-14.8); White Blood Cell Count 6.6 X10^3/uL (4.5-11.0)
[2024-02-21 06:06] LABS: Alanine Aminotransferase 14 IU/L (<35); Alkaline Phosphatase 73 U/L (38-126); Aspartate Aminotransferase 20 IU/L (14-36); BUN Creatinine Ratio 18.2 (6-22); Bilirubin Total 0.5 mg/dL (0.2-1.3); Blood Urea Nitrogen 10 mg/dL (7-17); Calcium 8.7 mg/dL (8.4-10.2); Carbon Dioxide 27 mmol/L (22-32); Chloride 102 mmol/L (98-107); Estimated Glomerular Filt Rate > 60 mL/min (>60); Glucose 103 mg/dL (80-110); HEMOLYSIS < 15 (0-50); Potassium 3.5 mmol/L (3.4-5.1); Sodium 132 mmol/L (137-145)
[2024-02-21] MEDS: SODIUM CHLORIDE 0.9% 1,000 ML 1000 ML IV (07:25)
--- NOTE | 2024-02-21 08:21 | DI.MRI.S_ITS ---
PROCEDURE: MR HEAD/BRAIN WO CON INDICATIONS: altered mental status TECHNIQUE: Non-contrast axial T1 spin echo, axial T2 fast spin echo, sagittal and axial FLAIR, coronal T2 fast spin echo, axial gradient echo, axial diffusion and ADC through the brain. COMPARISON: [facility], CT, CT HEAD/BRAIN WO CON, 02/20/2024, 22:45. FINDINGS: Image quality: Excellent. CSF spaces: Ventricles appear symmetric in size and shape. Basal cisterns are patent. No extra-axial fluid collections. Brain: No acute intracranial hemorrhage or mass effect. There is mild cerebral volume loss for age. There are periventricular and deep white matter chronic small vessel ischemic changes. Brainstem appears normal. Diffusion-weighted images show no acute infarct. Normal intravascular flow voids are present. Skull and face: Calvarial bone marrow is normal in signal. Orbits are normal. Sinuses: Sinuses and mastoids are clear. IMPRESSION: 1. No acute intracranial hemorrhage or recent infarct. 2. Mild chronic microvascular ischemic changes and generalized parenchymal volume loss. Approved by: Kadeem Boyle M.D. on 02/21/2024 at 8:51
--- NOTE | 2024-02-21 08:40 | PM.HP.1 ---
History of Present Illness History of Present Illness Date Patient Seen: 02/21/24 Chief complaint: post surg/states altered mental status Narrative: From night doctor: The pt is a 74 yo who underwent a tri-maleolar ankle fracture repair 4 days ago and since then has become more agitated and confused per husbands report. He states that he hasn't gotten an sleep since the surgery because she is so confused and is at my wits end. The pt is able to answer some questions, but is oriented only to self, and refused to answer other questions only stating that she is in tremendous pain although she wont say where the pain is. Jocelin has undergone several back surgeries in the past and is on several non -narcotic pain meds such a celebrex, Lyrica, gabapentin. Since the surgery the has been giving oxycodone on a regular basis every four hours to help her sleep. The also reports fevers today but there is no fevers recorded since she has been seen here. The pt is demanding pain meds and keeps repeating these demands regardless of the questions being asked. This AM: Today I spoke with the at her bedside. She is sleeping and has been for several hours. IV fluid is running. He recounts pain control issues after her surgery. He had deescalate doses of oxycodone and then she became more agitated. In the background, she uses multiple medications chronically for fibromyalgia including Lyrica and baclofen. She uses very little opiate some recent years. She had access to hydrocodone and use very little of this several weeks ago and had accessed oxycodone prior to this recent escalation of pain and had used very little of that. He did escalate her dose to 1-1/2 tabs and then tried to come back down on dosing relatively quickly. No other issue appears to be new. She did have her splint loosened up in the emergency department and unclear if it was too tight or not. He notes that she has not slept well for several days likely because of pain control issues. [facility] Medical History Sepsis (2021) Asthma Anesthesia complication Hypothyroidism Mycoplasma infection Surgical History History of carpal tunnel release of both wrists (1979) History of hysterectomy History of back surgery Social History household members: spouse and children Smoking Status: Former smoker alcohol intake: former Meds Home Medications and Allergies Home Medications Medication Instructions Recorded Confirmed Type celecoxib 200 mg capsule 200 mg PO BIDCC #0 caps 06/17/16 02/21/24 History liothyronine 5 mcg tablet (Cytomel) 5 mcg PO QDAY #0 tabs 06/17/16 02/21/24 History acetaminophen 325 mg tablet 325 mg PO QID PRN pain 07/30/22 02/21/24 History baclofen 20 mg tablet 20 mg PO DAILY 07/30/22 02/21/24 History hydroxychloroquine 200 mg tablet 200 mg PO DAILY ##0 07/30/22 02/21/24 History levothyroxine 75 mcg tablet 75 mcg PO DAILY 07/30/22 02/21/24 History pregabalin 75 mg capsule 100 mg PO BEDTIME 07/30/22 02/21/24 History hydrocodone 5 mg-acetaminophen 325 1 tab PO Q8H PRN pain #10 tabs 02/05/24 02/21/24 Rx mg tablet pregabalin 25 mg capsule 25 mg PO QAM 02/14/24 02/21/24 History oxybutynin chloride 5 mg 5 mg PO DAILY 02/16/24 02/21/24 History tablet,extended release 24 hr Allergies Allergy/AdvReac Type Severity Reaction Status Date / Time adhesive [ADHESIVE] Allergy Unknown RASH Verified 02/20/24 21:02 rofecoxib [From VIOXX] Allergy Unknown MY LEGS Verified 02/20/24 21:02 FELT LIKE THEY COULDNT MOVE Sulfa (Sulfonamide Allergy Unknown RASH Verified 02/20/24 21:02 Antibiotics) [SULFA (SULFONAMIDE ANTIBIOTICS)] Sutures Allergy Itching Verified 02/20/24 21:02 with one surgery Review of Systems Review of Systems Narrative: Otherwise not obtainable as patient was quite somnolent. Exam Vital Signs (past 8 hours): - 02/21/24 01:00 02/21/24 01:30 02/21/24 02:00 Temperature Pulse Rate 93 H 85 98 H Respiratory Rate 14 21 Blood Pressure Pulse Oximetry 96 98 97 Oxygen Delivery Method Room Air Oxygen Flow Rate 02/21/24 02:30 02/21/24 03:00 02/21/24 03:30 Temperature Pulse Rate 86 87 101 H Respiratory Rate 12 14 Blood Pressure Pulse Oximetry 98 97 98 Oxygen Delivery Method Oxygen Flow Rate 02/21/24 04:00 02/21/24 04:30 02/21/24 04:53 Temperature Pulse Rate 92 H 85 83 Respiratory Rate 13 16 15 Blood Pressure Pulse Oximetry 97 97 Oxygen Delivery Method Oxygen Flow Rate 02/21/24 04:53 02/21/24 05:00 02/21/24 05:00 Temperature Pulse Rate 84 Respiratory Rate 14 Blood Pressure 110/54 L 110/55 L Pulse Oximetry 97 Oxygen Delivery Method Nasal Cannula Oxygen Flow Rate 1 02/21/24 05:30 02/21/24 05:31 02/21/24 05:31 Temperature Pulse Rate 77 76 Respiratory Rate 14 14 Blood Pressure 99/50 L Pulse Oximetry 95 Oxygen Delivery Method Nasal Cannula Oxygen Flow Rate 1 02/21/24 06:00 02/21/24 06:00 02/21/24 06:30 Temperature Pulse Rate 68 Respiratory Rate 14 Blood Pressure 92/50 L 97/51 L Pulse Oximetry 97 Oxygen Delivery Method Nasal Cannula Oxygen Flow Rate 1 02/21/24 06:30 02/21/24 07:00 02/21/24 07:14 Temperature Pulse Rate 70 64 Respiratory Rate 13 13 Blood Pressure 97/48 L Pulse Oximetry 97 97 Oxygen Delivery Method Oxygen Flow Rate 02/21/24 07:14 02/21/24 07:30 02/21/24 07:30 Temperature Pulse Rate 63 62 Respiratory Rate 13 13 Blood Pressure 99/50 L Pulse Oximetry 98 98 Oxygen Delivery Method Oxygen Flow Rate 02/21/24 08:08 02/21/24 08:09 02/21/24 08:19 Temperature 98.0 F Pulse Rate 85 Respiratory Rate Blood Pressure 168/56 H Pulse Oximetry 95 Oxygen Delivery Method Oxygen Flow Rate 02/21/24 08:30 02/21/24 08:30 Temperature Pulse Rate 84 Respiratory Rate Blood Pressure 152/66 H Pulse Oximetry 95 Oxygen Delivery Method Room Air Oxygen Flow Rate Oxygen Delivery Method Room Air Oxygen Flow Rate 1 Narrative Exam Narrative: She is sleeping, no distress. Lungs are clear, normal respiratory effort. Heart is regular. No murmur. Abdomen is soft, nontender. Left leg is in a splint, foot is unremarkable. Good cap refill. Objective Labs 02/21/24 05:25 02/21/24 05:25 Labs: Laboratory Results - last 24 hr 02/20/24 02/20/24 02/20/24 21:53 22:49 22:49 WBC 8.5 RBC 3.36 L Hgb 10.2 L Hct 30.8 L MCV 91.6 MCH 30.5 MCHC 33.3 RDW 13.8 Plt Count 179 Neut % (Auto) 78.6 H Lymph % (Auto) 8.7 L [place] % (Auto) 10.9 Eos % (Auto) 1.5 L Baso % (Auto) 0.3 Neut # (Auto) 6700 Lymph # (Auto) 700 L [place] # (Auto) 900 Eos # (Auto) 100 Baso # (Auto) 0 PT 11.9 INR 1.0 APTT 34 Sodium 134 L Potassium 4.0 Chloride 101 Carbon Dioxide 26 BUN 14 Creatinine 0.59 Estimated GFR > 60 BUN/Creatinine Ratio 23.7 H Glucose 112 H Lactate 1.4 Calcium 9.9 Total Bilirubin 0.6 AST 24 ALT 18 Alkaline Phosphatase 95 Ammonia Total Protein 7.2 Albumin 3.8 Globulin 3.4 Albumin/Globulin Ratio 1.1 Lipase 30 Procalcitonin 0.41 Urine Color Yellow Urine Appearance Clear Urine pH 6.0 Normal Ur Specific [place] 1.010 Urine Protein Negative Urine Glucose (UA) Negative Urine Ketones Negative Urine Occult Blood Negative Urine Nitrate Negative Urine Bilirubin Negative Urine Urobilinogen 0.2 Ur Leukocyte Esterase Negative Urine RBC 0-1/hpf Urine WBC None seen Ur Squamous Epith Cells None seen Ur Transition Epith Cell 0-1/hpf Urine Bacteria None seen Ur Culture Indicated? Cult not indicated Vol Urine Centrifuged 10ml (spun) U Opiates 300ng/mL cut Negative Ur Oxycodone Screen Positive H Urine Methadone Screen Negative Ur Barbiturates Screen Negative U Tricyclic Antidepress Negative Ur Phencyclidine Scrn Negative Ur Amphetamines Screen Negative U Methamphetamines Scrn Negative Ur MDMA Scrn (Ecstasy) Negative U Benzodiazepines Scrn Negative Urine Cocaine Screen Negative U Marijuana (THC) Screen Negative Urine Specific [place] Normal Ur Creatinine Normal SARS-CoV-2 (PCR) Influenza A (RT-PCR) Influenza B (RT-PCR) RSV (PCR) 02/20/24 02/21/24 02/21/24 23:56 02:00 05:25 WBC 6.6 RBC 2.79 L Hgb 8.6 L Hct 25.5 L MCV 91.4 MCH 30.9 MCHC 33.9 RDW 13.7 Plt Count 148 L Neut % (Auto) 76.6 H Lymph % (Auto) 8.6 L [place] % (Auto) 13.0 Eos % (Auto) 1.5 L Baso % (Auto) 0.3 Neut # (Auto) 5100 Lymph # (Auto) 600 L [place] # (Auto) 900 Eos # (Auto) 100 Baso # (Auto) 0 PT INR APTT Sodium 132 L Potassium 3.5 Chloride 102 Carbon Dioxide 27 BUN 10 Creatinine 0.55 Estimated GFR > 60 BUN/Creatinine Ratio 18.2 Glucose 103 Lactate Calcium 8.7 Total Bilirubin 0.5 AST 20 ALT 14 Alkaline Phosphatase 73 Ammonia < 9 L Total Protein 6.0 L Albumin 3.0 L Globulin 3.0 Albumin/Globulin Ratio 1.0 Lipase Procalcitonin Urine Color Urine Appearance Urine pH Ur Specific [place] Urine Protein Urine Glucose (UA) Urine Ketones Urine Occult Blood Urine Nitrate Urine Bilirubin Urine Urobilinogen Ur Leukocyte Esterase Urine RBC Urine WBC Ur Squamous Epith Cells Ur Transition Epith Cell Urine Bacteria Ur Culture Indicated? Vol Urine Centrifuged U Opiates 300ng/mL cut Ur Oxycodone Screen Urine Methadone Screen Ur Barbiturates Screen U Tricyclic Antidepress Ur Phencyclidine Scrn Ur Amphetamines Screen U Methamphetamines Scrn Ur MDMA Scrn (Ecstasy) U Benzodiazepines Scrn Urine Cocaine Screen U Marijuana (THC) Screen Urine Specific [place] Ur Creatinine SARS-CoV-2 (PCR) Negative Influenza A (RT-PCR) Flu a negative Influenza B (RT-PCR) Flu b negative RSV (PCR) Negative Assessment & Plan Assessment & Plan narrative: 1. Acute metabolic encephalopathy, present on admission and active. 2. Anemia, present on admission and active. 3. Hypothyroidism, present on admission and stable. 4. Asthma, present on admission and stable. PLAN: - We will hold all pain medications and let her sleep and then wake up and see what her pain control level is mental status is. - We will hold baclofen for the time being. - We will continue HS Lyrica, this is a chronic medication. - We will monitor vital signs and temperature. - She was anemic, we will monitor hemoglobin. She is full resuscitation, her is proxy decision maker. Estimated date of discharge will likely be February 21. Time Spent With Patient Time with patient: 30 to 49 minutes with 50% spent counseling/coordinating care Quality MIPS - Admit I confirm the patient?s Advance Care Plan is present, Code status is documented, Surrogate decision maker is in patient?s record [If Yes, STOP here]: Yes MIPS - Meds 'Current medications' to include all prescriptions, itsc-dey-oocccim products, herbals, cannabis/cannabidiol products, and vitamin/mineral/dietary (nutritional) supplements. I have utilized all available resources to obtain, update, or review the patient?s current medications. [If Yes, STOP here]: Yes
[2024-02-21] MEDS: SODIUM CHLORIDE 0.9% FLUSH 10 ML IV ×2 (10:32→22:06)
[2024-02-21] MEDS: PREGABALIN 25 MG CAPSULE PO (10:32)
[2024-02-21] MEDS: ENOXAPARIN 40 MG/0.4 ML SYRINGE SUBCUT (10:33)
[2024-02-21] MEDS: LEVOTHYROXINE 75 MCG TABLET PO (10:33)
[2024-02-21] MEDS: POTASSIUM CHLORIDE 20 MEQ TAB 40 MEQ PO (14:28)
--- NOTE | 2024-02-21 15:14 | PC.NURSE ---
Patient arrived from ED at approximately 0900 this a.m. she is lethargic but awakens and is Ox2. She reports her pain is severe but instantly falls back to sleep. at bedside supportive. VSS, afebrile on RA. She has +1-2 edema in L foot. TARUN wrap to L ankle cdi. Toes with +CMS. Ice packs to L ankle and foot elevated. She awakens later this afternoon and eats lunch, per she is more oriented. A&OX3, Patient calls appropriately for assistance and makes her needs known. Bed alarm on, SCD to RLE, q2 turning, purewick in plac, call light in reach, frequent rounding.
[2024-02-21] MEDS: CELECOXIB 200 MG CAPSULE PO (17:00)
[2024-02-21] MEDS: HYDROXYCHLOROQUINE 200 MG TABLET PO (17:00)
--- NOTE | 2024-02-21 18:01 | PM.PN.1 ---
Subjective Subjective Interval history: Notified of patient's admission following recent ankle surgery by my partner Dr. Khalil. Splint apparently taken down for exam in emergency department. Patient should have wound covered for the evening and if the splint is still functional it can remain in place until the morning. In the morning our rounding team will either fabricate a new splint or transition the patient to a walker boot. Exam Vital Signs (past 8 hours): - 02/21/24 13:00 02/21/24 14:00 02/21/24 16:54 Temperature 98.4 F 96.5 F L Pulse Rate 82 74 Respiratory Rate 16 17 Blood Pressure 170/63 H 150/54 H Pulse Oximetry 96 96 98 Oxygen Delivery Method Room Air Oxygen Flow Rate 0 0 Oxygen Delivery Method Room Air Oxygen Flow Rate 0 Objective Labs 02/21/24 05:25 02/21/24 05:25 Labs: Laboratory Results - last 24 hr 02/20/24 02/20/24 02/20/24 21:53 22:49 22:49 WBC 8.5 RBC 3.36 L Hgb 10.2 L Hct 30.8 L MCV 91.6 MCH 30.5 MCHC 33.3 RDW 13.8 Plt Count 179 Neut % (Auto) 78.6 H Lymph % (Auto) 8.7 L [place] % (Auto) 10.9 Eos % (Auto) 1.5 L Baso % (Auto) 0.3 Neut # (Auto) 6700 Lymph # (Auto) 700 L [place] # (Auto) 900 Eos # (Auto) 100 Baso # (Auto) 0 PT 11.9 INR 1.0 APTT 34 Sodium 134 L Potassium 4.0 Chloride 101 Carbon Dioxide 26 BUN 14 Creatinine 0.59 Estimated GFR > 60 BUN/Creatinine Ratio 23.7 H Glucose 112 H Lactate 1.4 Calcium 9.9 Total Bilirubin 0.6 AST 24 ALT 18 Alkaline Phosphatase 95 Ammonia Total Protein 7.2 Albumin 3.8 Globulin 3.4 Albumin/Globulin Ratio 1.1 Lipase 30 Procalcitonin 0.41 Urine Color Yellow Urine Appearance Clear Urine pH 6.0 Normal Ur Specific [place] 1.010 Urine Protein Negative Urine Glucose (UA) Negative Urine Ketones Negative Urine Occult Blood Negative Urine Nitrate Negative Urine Bilirubin Negative Urine Urobilinogen 0.2 Ur Leukocyte Esterase Negative Urine RBC 0-1/hpf Urine WBC None seen Ur Squamous Epith Cells None seen Ur Transition Epith Cell 0-1/hpf Urine Bacteria None seen Ur Culture Indicated? Cult not indicated Vol Urine Centrifuged 10ml (spun) U Opiates 300ng/mL cut Negative Ur Oxycodone Screen Positive H Urine Methadone Screen Negative Ur Barbiturates Screen Negative U Tricyclic Antidepress Negative Ur Phencyclidine Scrn Negative Ur Amphetamines Screen Negative U Methamphetamines Scrn Negative Ur MDMA Scrn (Ecstasy) Negative U Benzodiazepines Scrn Negative Urine Cocaine Screen Negative U Marijuana (THC) Screen Negative Urine Specific [place] Normal Ur Creatinine Normal SARS-CoV-2 (PCR) Influenza A (RT-PCR) Influenza B (RT-PCR) RSV (PCR) 02/20/24 02/21/24 02/21/24 23:56 02:00 05:25 WBC 6.6 RBC 2.79 L Hgb 8.6 L Hct 25.5 L MCV 91.4 MCH 30.9 MCHC 33.9 RDW 13.7 Plt Count 148 L Neut % (Auto) 76.6 H Lymph % (Auto) 8.6 L [place] % (Auto) 13.0 Eos % (Auto) 1.5 L Baso % (Auto) 0.3 Neut # (Auto) 5100 Lymph # (Auto) 600 L [place] # (Auto) 900 Eos # (Auto) 100 Baso # (Auto) 0 PT INR APTT Sodium 132 L Potassium 3.5 Chloride 102 Carbon Dioxide 27 BUN 10 Creatinine 0.55 Estimated GFR > 60 BUN/Creatinine Ratio 18.2 Glucose 103 Lactate Calcium 8.7 Total Bilirubin 0.5 AST 20 ALT 14 Alkaline Phosphatase 73 Ammonia < 9 L Total Protein 6.0 L Albumin 3.0 L Globulin 3.0 Albumin/Globulin Ratio 1.0 Lipase Procalcitonin Urine Color Urine Appearance Urine pH Ur Specific [place] Urine Protein Urine Glucose (UA) Urine Ketones Urine Occult Blood Urine Nitrate Urine Bilirubin Urine Urobilinogen Ur Leukocyte Esterase Urine RBC Urine WBC Ur Squamous Epith Cells Ur Transition Epith Cell Urine Bacteria Ur Culture Indicated? Vol Urine Centrifuged U Opiates 300ng/mL cut Ur Oxycodone Screen Urine Methadone Screen Ur Barbiturates Screen U Tricyclic Antidepress Ur Phencyclidine Scrn Ur Amphetamines Screen U Methamphetamines Scrn Ur MDMA Scrn (Ecstasy) U Benzodiazepines Scrn Urine Cocaine Screen U Marijuana (THC) Screen Urine Specific [place] Ur Creatinine SARS-CoV-2 (PCR) Negative Influenza A (RT-PCR) Flu a negative Influenza B (RT-PCR) Flu b negative RSV (PCR) Negative [facility] Medical History Sepsis (2021) Asthma Anesthesia complication Hypothyroidism Mycoplasma infection Surgical History History of carpal tunnel release of both wrists (1979) History of hysterectomy History of back surgery Social History household members: spouse and children Smoking Status: Former smoker alcohol intake: former Quality VTE Deep Vein Thrombosis/Pulmonary Embolism Present on Admission: No
[2024-02-21] MEDS: HYDROCODONE/ACET 5/325 TABLET 1 TAB PO (21:22)
[2024-02-21] MEDS: PREGABALIN 75 MG CAPSULE 100 MG PO (22:15)
[2024-02-21] MEDS: BACLOFEN 10 MG TABLET PO (22:40)
[2024-02-21] MEDS: OXYBUTYNIN 5 MG ER TAB PO (23:16)
[2024-02-22 00:45] VITALS: BP 156/59; PULSE 85; RESP 18; TEMP 36.5; O2SAT 97
[2024-02-22 02:00] VITALS: O2SAT 97
[2024-02-22] MEDS: KETOROLAC 30 MG/ML VIAL IV (02:34)
[2024-02-22 05:30] VITALS: BP 184/71; PULSE 83; RESP 18; TEMP 37; O2SAT 96
[2024-02-22] MEDS: HYDROCODONE/ACET 5/325 TABLET 1 TAB PO ×2 (05:34→13:20)
[2024-02-22 06:00] VITALS: O2SAT 97
--- NOTE | 2024-02-22 07:37 | P.PN_ITS ---
Subjective Subjective Date Patient Seen: 02/22/24 Time Patient Seen: 07:37 Interval history: s/p L ankle ORIF 02/16/24--altered mental status. Admitted to medical team. Head CT and brain MRI that looks normal. Likely just effect with narcotic medication. The patient has extensive history of spine surgery. Has been nonweightbearing on the left lower extremity and ankle surgery last week. Seen at bedside this morning with her . No acute distress. Awake and alert. Splint evaluated has been split approximately 3 inches through the anterior gauze. Otherwise completely in place without any evidence problems. Exam Vital Signs (past 8 hours): - 02/22/24 00:45 02/22/24 02:00 02/22/24 05:30 Temperature 97.7 F 98.6 F Pulse Rate 85 83 Respiratory Rate 18 18 Blood Pressure 156/59 H 184/71 H Pulse Oximetry 97 97 96 Oxygen Delivery Method Room Air Oxygen Flow Rate 0 0 0 Oxygen Delivery Method Room Air Oxygen Flow Rate 0 Narrative Exam Narrative: Alert oriented no acute distress lying in bed. Left lower extremity elevated splint in place ice over splint. Splint was taken down incisions evaluated they are intact there is no erythema there is no blistering. No concerns. Normal ecchymosis post injury and surgery. Splint replaced. Objective Labs 02/21/24 05:25 02/21/24 05:25 [facility] Medical History Sepsis (2021) Asthma Anesthesia complication Hypothyroidism Mycoplasma infection Surgical History History of carpal tunnel release of both wrists (1979) History of hysterectomy History of back surgery Social History household members: spouse and children Smoking Status: Former smoker alcohol intake: former Assessment & Plan Assessment and plan (1) Closed left ankle fracture: Status: Acute Plan Completely normal postoperative appearance of left ankle fracture status post ORIF. Splint replaced. Continue nonweightbearing. Continue instructions post orthopedic surgery. Continue regular orthopedic follow up. Medication adjustments per admitting internal medicine team. Continue normal discharge instructions if DVT prophylaxis with 325 mg enteric coated aspirin daily x6 weeks while nonweightbearing post ankle surgery. Quality VTE Deep Vein Thrombosis/Pulmonary Embolism Present on Admission: No
[2024-02-22 07:58] VITALS: BP 167/74; PULSE 77; RESP 16; TEMP 36.6; O2SAT 97
[2024-02-22] MEDS: LEVOTHYROXINE 75 MCG TABLET PO (08:18)
[2024-02-22] MEDS: CELECOXIB 200 MG CAPSULE PO (08:18)
[2024-02-22] MEDS: PREGABALIN 25 MG CAPSULE PO (08:18)
[2024-02-22] MEDS: BACLOFEN 10 MG TABLET PO (08:22)
[2024-02-22] MEDS: ENOXAPARIN 40 MG/0.4 ML SYRINGE SUBCUT (08:22)
[2024-02-22] MEDS: SODIUM CHLORIDE 0.9% FLUSH 10 ML IV (08:23)
[2024-02-22 10:00] VITALS: O2SAT 97
[2024-02-22] MEDS: HYDROXYCHLOROQUINE 200 MG TABLET PO (10:00)
--- NOTE | 2024-02-22 14:09 | PC.NURSE ---
Patient is A&OX3, VSS, afebrile. LLE with +CMS noted old bruising and +1 edema. BP slightly elevated MD aware and discussed with patient and spouse. She is cleared for discharge today medically. She is assisted to shower, and follow non weight bearing precautions to LLE. Patient and spouse verbalize understanding of activity, site care, s/sx of infection, medications, s/sx of infection, as well as follow up appointment. Patient is escorted via w/ch to private vehicle for discharge home with at 1345 this afternoon. She has all of her belongings with her.
--- NOTE | 2024-02-22 20:39 | PM.DS.1 ---
History of Present Illness History of Present Illness Chief complaint: post surg/states altered mental status Narrative: The pt is a 74 yo who underwent a tri-maleolar ankle fracture repair 4 days ago and since then has become more agitated and confused per husbands report. He states that he hasn't gotten an sleep since the surgery because she is so confused and is at my wits end. The pt is able to answer some questions, but is oriented only to self, and refused to answer other questions only stating that she is in tremendous pain although she wont say where the pain is. Jocelin has undergone several back surgeries in the past and is on several non -narcotic pain meds such a celebrex, Lyrica, gabapentin. Since the surgery the has been giving oxycodone on a regular basis every four hours to help her sleep. The also reports fevers today but there is no fevers recorded since she has been seen here. The pt is demanding pain meds and keeps repeating these demands regardless of the questions being asked. This AM: Today I spoke with the at her bedside. She is sleeping and has been for several hours. IV fluid is running. He recounts pain control issues after her surgery. He had deescalate doses of oxycodone and then she became more agitated. In the background, she uses multiple medications chronically for fibromyalgia including Lyrica and baclofen. She uses very little opiate some recent years. She had access to hydrocodone and use very little of this several weeks ago and had accessed oxycodone prior to this recent escalation of pain and had used very little of that. He did escalate her dose to 1-1/2 tabs and then tried to come back down on dosing relatively quickly. No other issue appears to be new. She did have her splint loosened up in the emergency department and unclear if it was too tight or not. He notes that she has not slept well for several days likely because of pain control issues. Discharge Providers Provider Date of admission: 02/21/24 01:12 Discharge Date: 02/22/24 Primary care physician: Althea Lion MD Consults: 02/21/24 17:54 Consult to Orthopedic Surgery Routine Comment: Consulting Provider: Christiano Wynn Reason for consultation: postop Has provider been notified: Yes Discharge provider: Peter Villatoro MD Summary Hospital Course Discharge Diagnosis: 1. Acute metabolic encephalopathy secondary to oxycodone 2. Recent ORIF closed left ankle fx Hospital Course: Pt admitted due to altered mentation considered secondary to oxycodone prescribed after ankle ORIF. No other etiology such as UTI was found. Back to [facility] [place]. Evaluated by ortho and noted ankle appearance to be normal for postop. Currenly postop pain is controlled with Vicodin prn. Cont non- weight bearing until ortho follow up. Status at Discharge Cognitive/behavioral status at discharge: oriented Functional status at discharge: wheelchair bound Overall status at discharge: patient is back to baseline Exam Vital Signs (past 8 hours): Oxygen Delivery Method Room Air Oxygen Flow Rate 0 Narrative Exam Narrative: Gen: alert, speech nl. not confused Objective Labs 02/21/24 05:25 02/21/24 05:25 PFSH Medical History Sepsis (2021) Asthma Anesthesia complication Hypothyroidism Mycoplasma infection Surgical History History of carpal tunnel release of both wrists (1979) History of hysterectomy History of back surgery Social History household members: spouse and children Smoking Status: Former smoker alcohol intake: former Discharge Plan Discharge Plan Patient Disposition: Home Discharge orders & Medications Prescriptions: New hydrocodone-acetaminophen 5-325 mg Tablet 1 tab PO Q4H PRN (Reason: pain) Qty: 60 0RF Continued celecoxib 200 MG capsule 200 mg PO BIDCC Qty: 0 liothyronine [Cytomel] 5 MCG tablet 5 mcg PO QDAY Qty: 0 baclofen 20 mg tablet 20 mg PO DAILY Patient Comments: take 1 tablet by mouth once daily if needed levothyroxine 75 mcg tablet 75 mcg PO DAILY Patient Comments: TAKE 1 TABLET BY MOUTH ONCE DAILY FOR 6 DAYS, THEN TAKE 1/2 TABLET ON SUNDAYS pregabalin 75 mg capsule 100 mg PO BEDTIME Patient Comments: TAKE 1 CAPSULE BY MOUTH ONCE DAILY AT NIGHT hydroxychloroquine 200 mg Tablet 200 mg PO DAILY Qty: 0 acetaminophen 325 mg Tablet 325 mg PO QID PRN (Reason: pain) pregabalin 25 mg Capsule 25 mg PO QAM oxybutynin chloride 5 mg tablet extended release 24hr 5 mg PO DAILY Discontinued hydrocodone-acetaminophen 5-325 mg tablet 1 tab PO Q8H PRN (Reason: pain) Qty: 10 0RF Follow up/Referrals: Althea Lion MD [Primary Care Provider] - Diet/Activity/Treatments Diet: Regular Visit Report/Discharge Packet Instructions: DI for Ankle Fracture, How to Prevent Falls, DI for Prescription Opioid Use, Encephalopathy Stand Alone Forms: Patient Portal/API, Stroke Signs & Symptoms Discharge Data Primary Care Provider: Althea Lion Quality VTE Deep Vein Thrombosis/Pulmonary Embolism Present on Admission: No
== END 2024-02-22 14:15 | disposition home or self-care (01) | DRG 93 ==
LOC: ED 21:34 → AC 02-21 04:42
PROVIDERS: Admitting Provider Internal Medicine; Emergency Provider Emergency Medicine; PCP Family Medicine; Referring Provider Emergency Medicine; Visit Provider Internal Medicine
DX: G92.8 Other toxic encephalopathy (principal); D64.9 Anemia, unspecified; E03.9 Hypothyroidism, unspecified; J45.909 Unspecified asthma, uncomplicated; T40.2X5A Adverse effect of other opioids, initial encounter; Z98.890 Other specified postprocedural states; Z87.81 Personal history of (healed) traumatic fracture; Z87.891 Personal history of nicotine dependence
CPT/HCPCS: 0241U; 36415; 51701; 70450; 70551; 71045; 80053; 80305; 81001; 82140; 83605; 83690; 84145; 85025; 85610; 85730; 87040; 93005; 96374; 96375; 99284; 99285; J1630; J1650; J1885; J2405

== ENCOUNTER 2024-02-23 21:29 | Emergency (ER) | payer MEDICARE, OTHER, SELFPAY ==
[2024-02-21 06:23] VITALS: BMI 28.5
[2024-02-23 21:41] VITALS: BP 145/64; PULSE 87; RESP 18; TEMP 37; O2SAT 96; BMI 28.1
[2024-02-23 22:17] LABS: RBC Urine None Seen (0-5/HPF); Urine Volume 10mL (spun); WBC Urine 30-100/HPF (0-5/HPF)
[2024-02-23 22:18] LABS: Bacteria Urine Many (>30); Culture Indicated Urine Specimen Cultured; Squamous Epithelial Cell Urine 1-5 /HPF (0-5/HPF)
--- NOTE | 2024-02-23 22:52 | ED.FEMALEGU ---
HPI - Female Genitourinary General Chief complaint: Urogenital-Female Stated complaint: possible uti Time Seen by Provider: 02/23/24 22:28 Source: patient Mode of arrival: Wheelchair History of Present Illness HPI Narrative: 74-year-old female presents for burning with urination and frequency. History of uterine prolapse. Concern for UTI. stated that his sister who is a former emergency medicine nurse referred them to the emergency department due to fear of possible developing sepsis if infection left untreated Related Data Home Medications Medication Instructions Recorded Confirmed celecoxib 200 mg capsule 200 mg PO BIDCC #0 caps 06/17/16 02/21/24 liothyronine 5 mcg tablet (Cytomel) 5 mcg PO QDAY #0 tabs 06/17/16 02/21/24 acetaminophen 325 mg tablet 325 mg PO QID PRN pain 07/30/22 02/21/24 baclofen 20 mg tablet 20 mg PO DAILY 07/30/22 02/21/24 hydroxychloroquine 200 mg tablet 200 mg PO DAILY ##0 07/30/22 02/21/24 levothyroxine 75 mcg tablet 75 mcg PO DAILY 07/30/22 02/21/24 pregabalin 75 mg capsule 100 mg PO BEDTIME 07/30/22 02/21/24 pregabalin 25 mg capsule 25 mg PO QAM 02/14/24 02/21/24 oxybutynin chloride 5 mg 5 mg PO DAILY 02/16/24 02/21/24 tablet,extended release 24 hr Previous Rx's Medication Instructions Recorded hydrocodone 5 mg-acetaminophen 325 1 tab PO Q4H PRN pain #60 tabs 02/22/24 mg tablet cephalexin 500 mg capsule 500 mg PO BID #14 caps 02/23/24 Allergies Allergy/AdvReac Type Severity Reaction Status Date / Time adhesive [ADHESIVE] Allergy Unknown RASH Verified 02/20/24 21:02 rofecoxib [From VIOXX] Allergy Unknown MY LEGS Verified 02/20/24 21:02 FELT LIKE THEY COULDNT MOVE Sulfa (Sulfonamide Allergy Unknown RASH Verified 02/20/24 21:02 Antibiotics) [SULFA (SULFONAMIDE ANTIBIOTICS)] Sutures Allergy Itching Verified 02/20/24 21:02 with one surgery Patient History Medical History Sepsis (2021) Asthma Anesthesia complication Hypothyroidism Mycoplasma infection Surgical History History of carpal tunnel release of both wrists (1979) History of hysterectomy History of back surgery alcohol intake frequency: 0-2 drinks per day Substance Use Type: does not use Exam Initial Vital Signs Initial Vital Signs: Vital Signs Temperature 98.6 F 02/23/24 21:41 Pulse Rate 87 02/23/24 21:41 Respiratory Rate 18 02/23/24 21:41 Blood Pressure 145/64 H 02/23/24 21:41 Pulse Oximetry 96 02/23/24 21:41 Oxygen Delivery Method Room Air 02/23/24 21:41 Const: Awake, alert, no acute distress, nontoxic appearing MSK: LLE in clean splint Skin: Warm, Dry, intact, no rashes Neuro: AO x3, CN II-XII grossly intact, moves all extremities Course Orders Ordered: ED Orders 02/23/24 22:00 Urine Culture Stat Urine Microscopic Stat Discontinued Medications Cephalexin HCl (Cephalexin 250 Mg Capsule) 500 mg PO NOW ONE Stop: 02/23/24 22:52 Last Admin: 02/23/24 23:01 Dose: 500 mg Documented By: LIZA Ondansetron HCl (Ondansetron 4 Mg Odt) 4 mg SL NOW PRN PRN Reason: Nausea And Vomiting Ondansetron HCl (Ondansetron 4 Mg/2 Ml Inj) 4 mg IV NOW PRN PRN Reason: Nausea And Vomiting Vital Signs Vital signs: Vital Signs - 8 hr 02/23/24 21:41 02/23/24 23:11 Temperature 98.6 F Pulse Rate 87 78 Respiratory Rate 18 15 Blood Pressure 145/64 H 150/65 H Pulse Oximetry 96 97 Oxygen Delivery Method Room Air Room Air MDM - Female Genitourinary Differential Diagnosis Differential diagnosis: Likely urinary tract infection, bacterial vaginosis and trichomoniasis Lab Data Labs: Lab Results 02/23/24 Range/Units 22:00 Urine RBC None seen (0-5/HPF) Urine WBC 30-100/hpf H (0-5/HPF) Ur Squamous Epith Cells 1-5 /hpf (0-5/HPF) Urine Bacteria Many (>30) H (None) Ur Culture Indicated? Specimen cultured Vol Urine Centrifuged 10ml (spun) Urine Dip Bedside Urine Glucose Negative Bedside Urine Bilirubin - Negative Bedside Urine Ketone +/- 5 Urine Specific [place] 1.015 Bedside Urine Occult Blood +/- Bedside Urine pH 6 Bedside Urine Protein +/- 15 Bedside Urine Urobilinogen - Negative Bedside Urine Nitrite + Positive Bedside Urine Leukocytes +++ 500 Esterase MDM Narrative Medical decision making narrative: Well-appearing patient with symptoms of UTI. Patient did have urinalysis performed just 3 days prior that was negative, but she now has urinary symptoms. Urinalysis confirms WBCs and many bacteria. Patient given her initial dose of antibiotics in the emergency department since pharmacies are currently closed and discharged with prescription for antibiotics. Patient's vital signs are normal, she was no systemic symptoms, there was no indication that patient has sepsis. Patient had laboratory work obtained 1 day prior that showed no leukocytosis. PCP follow up advised. Discharge Plan Departure Patient Disposition: Home Clinical Impression: Acute UTI Instructions: DI for Urinary Tract Infection (UTI) Activity Restrictions/Additional Instructions: Finish all antibiotics as prescribed. Please make sure to drink plenty of fluids, stay hydrated, and follow up with your primary care physician. Prescriptions: New cephalexin 500 mg capsule 500 mg PO BID Qty: 14 0RF No Action celecoxib 200 MG capsule 200 mg PO BIDCC Qty: 0 liothyronine [Cytomel] 5 MCG tablet 5 mcg PO QDAY Qty: 0 baclofen 20 mg tablet 20 mg PO DAILY Patient Comments: take 1 tablet by mouth once daily if needed levothyroxine 75 mcg tablet 75 mcg PO DAILY Patient Comments: TAKE 1 TABLET BY MOUTH ONCE DAILY FOR 6 DAYS, THEN TAKE 1/2 TABLET ON SUNDAYS pregabalin 75 mg capsule 100 mg PO BEDTIME Patient Comments: TAKE 1 CAPSULE BY MOUTH ONCE DAILY AT NIGHT hydroxychloroquine 200 mg Tablet 200 mg PO DAILY Qty: 0 acetaminophen 325 mg Tablet 325 mg PO QID PRN (Reason: pain) pregabalin 25 mg Capsule 25 mg PO QAM oxybutynin chloride 5 mg tablet extended release 24hr 5 mg PO DAILY hydrocodone-acetaminophen 5-325 mg Tablet 1 tab PO Q4H PRN (Reason: pain) Qty: 60 0RF Referrals: Althea Lion MD [Primary Care Provider] - Stand Alone Forms: Patient Portal/API
[2024-02-23] MEDS: cephALEXin 250 MG CAPSULE 500 MG PO (23:01)
[2024-02-23 23:11] VITALS: BP 150/65; PULSE 78; RESP 15; O2SAT 97
== END 2024-02-23 23:12 | disposition home or self-care (01) ==
PROVIDERS: Emergency Provider Emergency Medicine; PCP Family Medicine
DX: N39.0 Urinary tract infection, site not specified (principal)
CPT/HCPCS: 81003; 81015; 87077; 87086; 87186; 99283

== ENCOUNTER 2024-02-29 11:39 | Inpatient (IN) | payer MEDICARE, OTHER, SELFPAY ==
[2024-02-21 06:23] VITALS: BMI 28.5
[2024-02-29 12:01] VITALS: BMI 27.0
--- NOTE | 2024-02-29 12:42 | PM.HP.1 ---
History of Present Illness History of Present Illness Date Patient Seen: 02/29/24 Time Patient Seen: 12:42 Date of Onset of Symptoms: 02/29/24 Chief complaint: L ankle infection Narrative: sp L ankle fx ORIF 02/16/24 pt recently hopsitaliized with UTI- e coli wound check was fine last week at hospitalization was fine-- pristine incisions sometime over last few days- increased pain, drainage and redness medial and lateral incisions seen in ORtho clinic and dx'd with infection and direct admit no f/c/n/v + diarrhea- history of UTI and rectal prolapse currently on cephalexin NWB E [facility] Medical History Sepsis (2021) Asthma Anesthesia complication Hypothyroidism Mycoplasma infection Surgical History History of carpal tunnel release of both wrists (1979) History of hysterectomy History of back surgery Social History household members: spouse and children Smoking Status: Former smoker alcohol intake: former Meds Home Medications and Allergies Home Medications Medication Instructions Recorded Confirmed Type celecoxib 200 mg capsule 200 mg PO BIDCC #0 caps 06/17/16 02/29/24 History liothyronine 5 mcg tablet (Cytomel) 5 mcg PO QDAY #0 tabs 06/17/16 02/29/24 History acetaminophen 325 mg tablet 325 mg PO QID PRN pain 07/30/22 02/29/24 History baclofen 20 mg tablet 20 mg PO DAILY 07/30/22 02/29/24 History hydroxychloroquine 200 mg tablet 200 mg PO DAILY ##0 07/30/22 02/29/24 History levothyroxine 75 mcg tablet 75 mcg PO DAILY 07/30/22 02/29/24 History pregabalin 75 mg capsule 75 mg PO BEDTIME 07/30/22 02/29/24 History oxybutynin chloride 5 mg 5 mg PO DAILY 02/16/24 02/29/24 History tablet,extended release 24 hr hydrocodone 5 mg-acetaminophen 325 1 tab PO Q4H PRN pain #60 tabs 02/22/24 02/29/24 Rx mg tablet pregabalin 25 mg capsule 25 mg PO BID 02/29/24 02/29/24 History Allergies Allergy/AdvReac Type Severity Reaction Status Date / Time adhesive [ADHESIVE] Allergy Unknown RASH Verified 02/20/24 21:02 rofecoxib [From VIOXX] Allergy Unknown MY LEGS Verified 02/20/24 21:02 FELT LIKE THEY COULDNT MOVE Sulfa (Sulfonamide Allergy Unknown RASH Verified 02/20/24 21:02 Antibiotics) [SULFA (SULFONAMIDE ANTIBIOTICS)] Sutures Allergy Itching Verified 02/20/24 21:02 with one surgery Review of Systems Review of Systems ROS: Yes All systems reviewed with the patient and are negative except as otherwise documented Exam Narrative Exam Narrative: alert and oriented NAD LCTAB, RRR afeb LLE: redness, and drainages with dehsicince at medial and lateral ankle incisions calf soft no ascending erythema--localized at incisions with drainage. sutures in place Assessment & Plan Assessment and plan (1) Closed left ankle fracture: Qualifiers: Encounter type: subsequent encounter Fracture healing: with routine healing Qualified Code(s): S82.892D - Other fracture of left lower leg, subsequent encounter for closed fracture with routine healing Status: Acute (2) Surgical site infection: Status: Acute Plan infected HW L ankle fx s/p ORIF admit- empiric abx vanc -cefepime npo at [facility] I&D tomorrow ( OR full today) NWB LLE lovenox dvt prophy to start postop SCDs for now and was on ASA outpt PICC blood cultures anticipate 3 night staty for cultures and establishement of home IV abx dispo plan plan 6 weeks IV aBx - will need to maintain HW due to recent-unhealed ankle fx.
--- NOTE | 2024-02-29 15:05 | DI.RAD.S_ITS ---
PROCEDURE: XR CHEST FOR PICC 1V INDICATIONS: PICC line placement COMPARISON: [facility], CR, XR CHEST 1V, 02/20/2024, 21:10. FINDINGS: PICC was placed by the intravenous therapy team from the left side. Fluoroscopic spot film demonstrates the tip of PICC projecting to the area of mid SVC. IMPRESSION: Tip of PICC projects to the area of mid SVC. Dictated by: Jose J Trent M.D. on 02/29/2024 at 16:07 Approved by: Jose J Trent M.D. on 02/29/2024 at 16:08
[2024-02-29] MEDS: CEFEPIME 1 GM in SODIUM CHLORIDE 0.9% 100 ML IV (15:49)
[2024-02-29] MEDS: LACTATED RINGERS 1,000 ML 100 ML IV (15:49)
[2024-02-29 15:51] LABS: Add Manual Diff / Slide Review NO; Basophils Absolute Auto 0 /uL (0-100); Basophils Percent Auto 0.2 % (0-2); Eosinophils Absolute Auto 100 /uL (0-450); Eosinophils Percent Auto 1.6 % (2-4); Hematocrit 29.4 % (36-46); Hemoglobin 9.8 g/dL (12.0-16.0); Lymphocytes Absolute Auto 1500 /uL (1100-4500); Lymphocytes Percent Auto 17.9 % (25-40); Mean Corpuscular HGB Conc 33.4 % (30-36); Mean Corpuscular Hemoglobin 30.1 PG (26-34); Mean Corpuscular Volume 90.2 fL (80-100); Monocytes Absolute Auto 600 /uL (0-900); Monocytes Percent Auto 6.9 % (3-14); Neutrophils Absolute Auto 6000 /uL (1500-7000); Neutrophils Percent Auto 73.4 % (50-75); Platelet Count 346 X10^3/uL (150-400); Red Blood Cell Count 3.26 X10^6/uL (4.0-5.2); White Blood Cell Count 8.2 X10^3/uL (4.5-11.0)
[2024-02-29 15:56] VITALS: BP 154/56; PULSE 74; RESP 18; TEMP 36.3
[2024-02-29 16:02] LABS: BUN Creatinine Ratio 27.8 (6-22); Blood Urea Nitrogen 20 mg/dL (7-17); Calcium 9.5 mg/dL (8.4-10.2); Carbon Dioxide 28 mmol/L (22-32); Chloride 103 mmol/L (98-107); Estimated Glomerular Filt Rate > 60 mL/min (>60); Glucose 109 mg/dL (80-110); HEMOLYSIS < 15 (0-50); Phosphorous 3.8 mg/dL (2.8-4.1); Potassium 3.7 mmol/L (3.4-5.1); Sodium 139 mmol/L (137-145)
[2024-02-29] MEDS: HYDROMORPHONE 0.5 MG INJ IV (17:28)
[2024-02-29] MEDS: VANCOMYCIN 1,000 MG/200 ML PIGGYBACK 200 MG IV (17:28)
[2024-02-29] MEDS: CELECOXIB 200 MG CAPSULE PO (17:28)
[2024-02-29 19:00] VITALS: BP 165/53; PULSE 74; RESP 16; TEMP 35.7; O2SAT 98
[2024-02-29] MEDS: SENNOSIDES 8.6 MG TABLET 17.2 MG PO (20:29)
[2024-02-29] MEDS: PREGABALIN 25 MG CAPSULE PO (20:29)
[2024-02-29] MEDS: PREGABALIN 75 MG CAPSULE PO (20:29)
[2024-02-29] MEDS: HYDROCODONE/ACET 5/325 TABLET 1 TAB PO (20:34)
[2024-02-29] MEDS: SODIUM CHLORIDE 0.9% FLUSH 10 ML IV (20:35)
[2024-02-29 21:44] LABS: Erythrocyte Sedimentation Rate 79 MM/HR (0-20)
[2024-02-29 23:00] VITALS: BP 173/69; PULSE 73; RESP 16; TEMP 36.2; O2SAT 98
[2024-03-01] VITALS (12 sets, daily range): BP systolic 151–186; BP diastolic 40–73; PULSE 72–88; RESP 12–22; TEMP 36.2–37.2; O2SAT 96–99; BMI 27.0
[2024-03-01] MEDS: HYDROMORPHONE 0.5 MG INJ IV ×2 (00:58→18:38)
[2024-03-01] MEDS: CEFEPIME 1 GM in SODIUM CHLORIDE 0.9% 100 ML IV (01:05)
[2024-03-01] MEDS: HYDROCODONE/ACET 5/325 TABLET 1 TAB PO ×3 (04:24→17:55)
[2024-03-01] MEDS: VANCOMYCIN 1,000 MG/200 ML PIGGYBACK 200 MG IV ×2 (06:19→18:37)
[2024-03-01] MEDS: PANTOPRAZOLE DR 20 MG TABLET PO (06:20)
[2024-03-01] MEDS: LEVOTHYROXINE 75 MCG TABLET PO (06:20)
[2024-03-01] MEDS: LIOTHYRONINE 5 MCG TABLET PO (06:20)
--- NOTE | 2024-03-01 07:09 | PM.PREOP ---
Pre-operative Note Interval Note History & Physical reviewed/Exam performed by Physician: Yes Changes to H&P: No H&P completed within 30 days and has changed as indicated here:: Preliminary micro from wound cultures Gram-negative rods. We will await final cultures but assume likely E coli since she has current UTI with that. On scheduled antibiotics. will have washout today.
--- NOTE | 2024-03-01 07:51 | P.CONS_ITS ---
History of Present Illness Consult details Date Patient Seen: 03/01/24 Chief complaint: L ankle infection Reason for consult: Assistance with antibiotic selection, medication management Requesting provider: Jill Khalil Narrative: This is a 74 year old female with PMH of asthma, hypothyroidism who was recently admitted for toxic encephalopathy due to opiates (UA was negative, does have history of UTI in 2021, and recently treated 02/22 in the ER for UTI), admitted with a post operative wound infection. Culture swab has gram negative rods. Patient was discharged from the ER on cephalexin for UTI on 02/22. She presented yesterday evening as a direct admit from orthopedics clinic with her wound infection. Currently on antipseudomonal cefepime dosing, vancomycin per pharmacy. Plan is for I&D later today. She started feeling worsening burning pain a few days prior to admission, and it feels sometimes like things are trying to escape from her wound. She denies any current dysuria or urinary frequency, which resolved after about 4 days of antibiotics. Denies fever, chills. Though she reports fever on previous admission but improved after tylenol was added. Blood cultures were obtained on admission, no leukocytosis on CBC though ESR and CRP are quite elevated at 79 and 13 respectively. Meds Home Medications and Allergies Home Medications Medication Instructions Recorded Confirmed Type celecoxib 200 mg capsule 200 mg PO BIDCC #0 caps 06/17/16 02/29/24 History liothyronine 5 mcg tablet (Cytomel) 5 mcg PO QDAY #0 tabs 06/17/16 02/29/24 History baclofen 20 mg tablet 20 mg PO DAILY 07/30/22 03/01/24 History hydroxychloroquine 200 mg tablet 200 mg PO DAILY ##0 07/30/22 02/29/24 History levothyroxine 75 mcg tablet 75 mcg PO DAILY 07/30/22 02/29/24 History oxybutynin chloride 5 mg 5 mg PO DAILY 02/16/24 02/29/24 History tablet,extended release 24 hr hydrocodone 5 mg-acetaminophen 325 1 tab PO Q4H PRN pain #60 tabs 02/22/24 02/29/24 Rx mg tablet aspirin 81 mg capsule 81 mg PO BID 02/29/24 02/29/24 History pregabalin 25 mg capsule 25 mg PO DAILY 02/29/24 03/01/24 History albuterol sulfate 90 mcg/actuation 1 inhalation Q4-6H PRN Shortness 03/01/24 History aerosol inhaler (Ventolin HFA) Of Breath estradiol 0.01% (0.1 mg/gram) 1 g vaginal DAILY 03/01/24 03/01/24 History vaginal cream pregabalin 100 mg capsule 100 mg PO BEDTIME 03/01/24 03/01/24 History Allergies Allergy/AdvReac Type Severity Reaction Status Date / Time Sutures Allergy Intermediate Rash Verified 02/29/24 22:07 adhesive [ADHESIVE] Allergy Unknown RASH Verified 02/20/24 21:02 rofecoxib [From VIOXX] Allergy Unknown MY LEGS Verified 02/20/24 21:02 FELT LIKE THEY COULDNT MOVE Sulfa (Sulfonamide Allergy Unknown RASH Verified 02/20/24 21:02 Antibiotics) [SULFA (SULFONAMIDE ANTIBIOTICS)] oxycodone AdvReac Severe Hallucinati Verified 02/29/24 19:23 ng Review of Systems Review of Systems Narrative: All other systems reviewed with the patient and are negative unless otherwise stated. Exam Vital Signs (past 8 hours): - 03/01/24 05:31 Temperature 97.2 F L Pulse Rate 72 Respiratory Rate 16 Blood Pressure 172/57 H Pulse Oximetry 99 Oxygen Delivery Method Room Air Narrative Exam Narrative: General:? Patient is well developed and well nourished, in no distress at this time. Chest:? Normal AP diameter and contour without kyphoscoliosis, no tachypnea, equal chest rise bilaterally. Lungs:? CTA b/l no wheezing rhonchi or rales. Cardio:?RRR no m/r/g. Abdomen: S NT ND. Musculoskeletal:? Muscle strength and tone are equal within normal limits, no deformity. Extremities: Right leg edema, swelling, but bandaged and not removed. Quite tender and painful with minimal movement. Neuro:? Alert and orientated x3,? sensation to touch intact in all extremities, no gross deficits noted of cranial nerves. Psych:? Patient has a well-kept appearance, appropriate affect, mental status attitude thought context and judgment are appropriate for age. Objective Labs 03/01/24 08:22 03/01/24 08:22 Labs: Laboratory Results - last 24 hr 02/29/24 15:37 WBC 8.2 RBC 3.26 L Hgb 9.8 L Hct 29.4 L MCV 90.2 MCH 30.1 MCHC 33.4 RDW 14.0 Plt Count 346 Neut % (Auto) 73.4 Lymph % (Auto) 17.9 L [place] % (Auto) 6.9 Eos % (Auto) 1.6 L Baso % (Auto) 0.2 Neut # (Auto) 6000 Lymph # (Auto) 1500 [place] # (Auto) 600 Eos # (Auto) 100 Baso # (Auto) 0 ESR 79 H Sodium 139 Potassium 3.7 Chloride 103 Carbon Dioxide 28 BUN 20 H Creatinine 0.72 Estimated GFR > 60 BUN/Creatinine Ratio 27.8 H Glucose 109 Calcium 9.5 Phosphorus 3.8 Magnesium 2.0 C-Reactive Protein 13.0 H PFSH Medical History Sepsis (2021) Asthma Anesthesia complication Hypothyroidism Mycoplasma infection Surgical History History of carpal tunnel release of both wrists (1979) History of hysterectomy History of back surgery Social History household members: spouse and children Tobacco & Substance Use Smoking Status: Former smoker alcohol intake: former Assessment & Plan Assessment & Plan narrative: 1. Gram negative post op wound infection, L ankle, present on admission - continue cefepime with antipseudomonal dosing - SOFA score <2, no evidence of sepsis - I&D management per orthopedic surgery, discussed with Dr. Khalil today. Will likely need ID consultation if prolonged antibiotics for concern for hardware infection. - follow up wound and blood cultures, wound cultures with gram negative organisms thus far. 2. Hypothyroid, chronic - continue home levothyroxine 3. Asthma, chronic - no acute exacerbation, no recent symptoms Code: Full, surrogate is patient's spouse and daughter DVT: per primary I have utilized all available immediate resources to obtain, update, or review the patient's current medications. Dispo: patient admitted under inpatient status. Medicine will continue to follow along for consultation. Additional history obtained via discussions with the orthopedic provider. These discussions contributed to the creation of the above assessment and plan. I have reviewed patient's presenting documentation, labs, and imaging personally.
[2024-03-01 08:37] LABS: Add Manual Diff / Slide Review NO; Basophils Absolute Auto 0 /uL (0-100); Basophils Percent Auto 0.5 % (0-2); Eosinophils Absolute Auto 100 /uL (0-450); Eosinophils Percent Auto 2.3 % (2-4); Hematocrit 30.8 % (36-46); Hemoglobin 10.2 g/dL (12.0-16.0); Lymphocytes Absolute Auto 1300 /uL (1100-4500); Lymphocytes Percent Auto 20.7 % (25-40); Mean Corpuscular HGB Conc 33.2 % (30-36); Mean Corpuscular Hemoglobin 29.9 PG (26-34); Mean Corpuscular Volume 90.1 fL (80-100); Monocytes Absolute Auto 400 /uL (0-900); Monocytes Percent Auto 6.9 % (3-14); Neutrophils Absolute Auto 4500 /uL (1500-7000); Neutrophils Percent Auto 69.6 % (50-75); Platelet Count 346 X10^3/uL (150-400); Red Blood Cell Count 3.42 X10^6/uL (4.0-5.2); Red Cell Distribution Width 13.9 % (11.6-14.8); White Blood Cell Count 6.4 X10^3/uL (4.5-11.0)
[2024-03-01] MEDS: HYDROCODONE/ACET 10/325 TABLET 1 TAB PO ×2 (08:48→20:22)
[2024-03-01 08:53] LABS: BUN Creatinine Ratio 22.4 (6-22); Blood Urea Nitrogen 13 mg/dL (7-17); Calcium 9.3 mg/dL (8.4-10.2); Carbon Dioxide 27 mmol/L (22-32); Chloride 105 mmol/L (98-107); Estimated Glomerular Filt Rate > 60 mL/min (>60); Glucose 93 mg/dL (80-110); HEMOLYSIS < 15 (0-50); Potassium 3.9 mmol/L (3.4-5.1); Sodium 139 mmol/L (137-145)
[2024-03-01] MEDS: BACLOFEN 10 MG TABLET 20 MG PO (09:32)
[2024-03-01] MEDS: PREGABALIN 25 MG CAPSULE PO ×2 (09:32→21:17)
[2024-03-01] MEDS: HYDROXYCHLOROQUINE 200 MG TABLET PO (09:32)
[2024-03-01] MEDS: OXYBUTYNIN 5 MG ER TAB PO (09:32)
[2024-03-01] MEDS: SODIUM CHLORIDE 0.9% FLUSH 10 ML IV (09:33)
[2024-03-01] MEDS: CEFEPIME 2 GM in SODIUM CHLORIDE 0.9% 100 ML IV ×2 (09:33→21:18)
--- NOTE | 2024-03-01 10:27 | CM.DANOTE ---
Initial DCP Assessment Visit Note Reviewed EMR and team rounds for pt's medical status and updates. CERTIFIED MASSAGE THERAPIST met with pt/dtr at bedside to introduce self and role. Pt resides modified independently with her in their own home in [place]. She has a dtr that is very involved and is assisting with her post-discharge care coordination needs. Her dtr will also drive her home at discharge. Payor: Medicare Attending: Dr. Khalil Pt is a 74 year-old F who was admitted from 02/19-02/22/24 for a L-ankle fixation surgery. She was discharged home with no concerns. Over the course of the last few days the incision site has become more red, painful, and has infectious drainage. She was started on IV ABO's, the plan is for her to be taken to the OR today for I-D. Cultures are pending. Per Dr. Khalil, pt will need 6-weeks of antibiotics post-discharge. Pt/dtr prefer the infusion center. CERTIFIED MASSAGE THERAPIST will continue to follow and assist with discharge transition and OP plan for IV ABO's. Discharge Planning/Care Management CM Discharge Assessment Start: 03/01/24 09:30 Freq: Status: Active Protocol: Document 03/01/24 10:19 DPL (Rec: 03/01/24 10:27 DPL [id number]) Discharge Planning Assessment Assigned Special Services Coordinator EDSON Kamara Advance Directives? Yes Advance Directives on File No History Provided By Patient,Family Member,Medical Record Has Patient been admitted in last 30 Yes days? Comment Pt was admitted from 02/19-02/21 for left-ankle fixation surgery. Prior Living Arrangements House Household Members spouse,children Type of transporation used prior to Drives own vehicle admit Independent with ADL's No: modified independent Is patient alert and oriented? Yes Caregiver for Another No Community Services used prior to Physical Therapy admission: DME Already Rented / Owned Bath Bench,Elevated Toilet Seat,FWW / Walker Comment knee scooter, uses 2-hiking poles for mobility Clinicals Faxed No Comment OP Infusion of IV ABO's for 6- weeks. Barriers to Discharge No Discharge Plan Home Transportation Arrangement Family Additional Comment [facility] Whiteboard Updated in Patient Room with Yes name and ext. # of Special Services Coordinator Review Status In Process Please Provide Date Initial DC 03/01/24 Assessment Was Performed
[2024-03-01] MEDS: LACTATED RINGERS 1,000 ML 100 ML IV ×3 (12:47→18:38)
--- NOTE | 2024-03-01 16:25 | SUR.OPER ---
Supine on padded OR bed, head on pillow, arms secured on padded arm boards at <90 degrees abduction, legs uncrossed, safety belt at thigh, tape over blanket over lower legs. bump blanket under operative leg
[2024-03-01] MEDS: BUPIVACAINE 0.25% (PF) 30 ML, EPINEPHrine 0.15 MG INJ (17:30)
[2024-03-01] MEDS: ACETAMINOPHEN 325 MG TABLET 650 MG PO (17:59)
--- NOTE | 2024-03-01 18:01 | P.OP_ITS ---
Operative Date/Time/Diagnoses Date of procedure: 03/01/24 Time of procedure: 17:45 Pre-op diagnosis: Left ankle deep infection, surgical site, hardware complicating infection. Post-op diagnosis: same Procedure & Clinicians Procedure: Debridement muscle and fascia and periosteum left ankle deep hardware infection. CPT code 71321 medial incision Debridement muscle fascia and periosteum left ankle lateral incision separate site separate incision CPT code 70512 Modifier 78 Same procedure as scheduled: Yes Indications: Patient is a 74-year-old female that had a history of a left ankle fracture sustained on 02/04/2023. She also has an extensive spine surgery history. She had an open reduction internal fixation on 02/16 2024. She was recently diagnosed with a E coli UTI and has been cephalexin. During the interval time from when I last saw her wound 1 week ago and today her ankle wound has has broken down both medially and laterally along her ankle fracture with drainage and erythema concerning for deep infection. Her ankle pain has increased. She has been indicated for hospital readmission IV antibiotics irrigation debrid ement of her wounds and care for her deep wound infection with complicating hardware. We discussed goals of the treatment would be to maintain the hardware as her ankle fracture is not yet healed and eradicate infection and treat with antibiotics. We discussed if infection is not eradicated she may later require hardware removal or exchange of hardware. The risks and benefits of the procedure were discussed with the patient and additionally with the patient's and daughter. The risks and benefits of the procedure have been discussed with the patient and given the opportunity to ask questions. The risks of surgery include but are not limited to infection, malunion, nonunion, persistence of pain, damage to nerves and blood vessels, posttraumatic arthritis, DVT, PE, cardiopulmonary complications and . The patient expressed a thorough understanding of the risks and benefits of surgery and has elected to proceed. Consent was signed . Surgeon: Jill Khalil Click Yes if Unassisted: Yes Anesthesia Type: General and Local Operative Notes Findings: No gross purulence was small amount of necrotic, nonviable tissue throughout both medial and lateral incisions. Wound edges were freshened. After removal of the sutures hardware was exposed. Debridement was carried through throughout the skin subcutaneous tissue fashion periosteum. The ankle joint was entered in the expected medially and was washed out with cultures obtained. No clear deep abscess demonstrated. Closure Type: primary Specimen(s): other (Tissue and swab sent for Gram stain, aerobic, aerobic and PCR left ankle) Estimated Blood Loss (mL): 30 Blood products transfused: none Tourniquet time (min): 0 Procedure in detail: The patient was seen in the preoperative area the site of surgery was marked informed consent confirmed. She was brought back to the operating room by the anesthesia team positioned supine on operative table. Bony prominences well padded. A well-padded thigh tourniquet was applied but not inflated. The left lower extremity was prepped and draped in the standard sterile fashion a formal time-out procedure was performed confirming the patient's side and site of surgery administration of appropriate preoperative antibiotic--in this case this patient has been on scheduled vancomycin and cefepime. All were in agreement. Attention was turned to the left lower extremity. No tourniquet was utilized. The wounds were inspected. There was evolving dehiscence of both medial and lateral incisions with fibrinous exudate and what appeared to be some faint thin purulence distally at the medial and lateral incisions. The sutures were removed. The wound was then easily opened with finger pressure and dissected down to the bone with exposed hardware both medially and laterally after incision opening. There was no evidence of loose or broken hardware. No deep abscess was found. Attention was 1st turned to the medial incision the sutures removed from this site. Sharp debridement using a scalpel was taken along the skin edges subcutaneous tissue fascia down to the periosteum this was dissected anteriorly off the distal tibia to enter the tibiotalar joint medially. Culture swabs were obtained and the rongeur was used together soft tissue samples for culture. All nonviable tissue was removed using a rongeur and the wound beds irritated with a curette. The same procedure was repeated for the lateral incision which was again opened removing the sutures wound edges were freshened using the scalpel to debride skin and subcutaneous tissue and then down to the level of the bone with debriding of the involved nonviable fascia and periosteum. Hardware was intact. Following this the leg was placed into a base and then irrigated with 6 L of saline through cysto tubing irrigating the medial and lateral incisions and into the ankle joint. This was additionally irritated with a sterile sponge and curette. Once this was completed clean drapes were applied. New clean gloves and instruments were exchanged. At this point the wounds medial and lateral were inspected. No remaining nonviable tissue was demonstrated. The wound edges were further freshened and then were closed. Attempted subcutaneous suture with PDS was attempted but pul led out of the skin therefore a 1 layer nylon closure was performed 1st approximating the incisions with trauma sutures with 2-0 nylon and then exchanging these were simple 3-0 nylon sutures as the wound approximated. At the end of the procedure 20 cc of 0.25% Marcaine with epinephrine was injected for local anesthetic. The wounds were dressed with Xeroform gauze Webril and an [place] wrap and then a stirrup splint in neutral position was applied with Orthoglass outside the Luis Felipe wrap and covered by final Luis Felipe wrap for easy removal. The patient was awoken from anesthetic and taken to the recovery room in good condition. There were no immediate complications from this procedure. Counts were correct. Post-operative Condition: stable Disposition: PACU Plan for aftercare: Patient will be returned to the floor. Her microbiology will be followed so that we can tailor her antibiotics. She will continue to be touchdown or nonweightbearing on the left lower extremity consistent with her postoperative care for her ankle fracture. And will work on establishing an outpatient antibiotic plan for her with a goal to retain the hardware and eradicate infection. Her sutures will remain in place for a minimum of 3 weeks . We will utilize Lovenox 40 subcutaneous daily while in the hospital for DVT prophylaxis. That discharge DVT prophylaxis can be changed to aspirin 325 daily which is equivalent of 4 baby aspirin daily.
[2024-03-01] MEDS: GABAPENTIN 100 MG CAPSULE PO (18:24)
[2024-03-01] MEDS: ASPIRIN EC 81 MG TABLET PO (21:17)
[2024-03-01] MEDS: PREGABALIN 75 MG CAPSULE PO (21:17)
[2024-03-01] MEDS: SENNOSIDES 8.6 MG TABLET 17.2 MG PO (21:17)
[2024-03-02] MEDS: HYDROCODONE/ACET 10/325 TABLET 1 TAB PO ×5 (00:09→20:36)
[2024-03-02 02:00] VITALS: BP 163/55; PULSE 77; RESP 16; O2SAT 100
[2024-03-02] MEDS: LACTATED RINGERS 1,000 ML 100 ML IV (03:59)
[2024-03-02] MEDS: SODIUM CHLORIDE 0.9% FLUSH 10 ML IV (05:39)
[2024-03-02] MEDS: PANTOPRAZOLE DR 20 MG TABLET PO (05:42)
[2024-03-02] MEDS: LEVOTHYROXINE 75 MCG TABLET PO (05:42)
[2024-03-02] MEDS: LIOTHYRONINE 5 MCG TABLET PO (05:43)
[2024-03-02 05:46] LABS: Add Manual Diff / Slide Review NO; Basophils Absolute Auto 0 /uL (0-100); Basophils Percent Auto 0.3 % (0-2); Eosinophils Absolute Auto 0 /uL (0-450); Eosinophils Percent Auto 0.1 % (2-4); Hematocrit 25.7 % (36-46); Hemoglobin 8.7 g/dL (12.0-16.0); Lymphocytes Absolute Auto 1100 /uL (1100-4500); Lymphocytes Percent Auto 15.3 % (25-40); Mean Corpuscular HGB Conc 33.9 % (30-36); Mean Corpuscular Hemoglobin 30.3 PG (26-34); Mean Corpuscular Volume 89.4 fL (80-100); Monocytes Absolute Auto 400 /uL (0-900); Monocytes Percent Auto 5.5 % (3-14); Neutrophils Absolute Auto 5900 /uL (1500-7000); Neutrophils Percent Auto 78.8 % (50-75); Platelet Count 335 X10^3/uL (150-400); Red Blood Cell Count 2.88 X10^6/uL (4.0-5.2); Red Cell Distribution Width 13.8 % (11.6-14.8); White Blood Cell Count 7.5 X10^3/uL (4.5-11.0)
[2024-03-02 05:57] LABS: BUN Creatinine Ratio 21.2 (6-22); Blood Urea Nitrogen 11 mg/dL (7-17); Calcium 9.4 mg/dL (8.4-10.2); Carbon Dioxide 28 mmol/L (22-32); Chloride 103 mmol/L (98-107); Estimated Glomerular Filt Rate > 60 mL/min (>60); Glucose 108 mg/dL (80-110); HEMOLYSIS < 15 (0-50); Potassium 4.1 mmol/L (3.4-5.1); Sodium 137 mmol/L (137-145)
[2024-03-02 06:00] VITALS: BP 182/65; PULSE 77; RESP 16; TEMP 36.6; O2SAT 96
[2024-03-02 06:01] LABS: Vancomycin Trough 12.1 ug/mL (10-20)
[2024-03-02] MEDS: VANCOMYCIN 1,000 MG/200 ML PIGGYBACK 200 MG IV (06:10)
[2024-03-02] MEDS: VANCOMYCIN TROUGH 1 REQUEST MISC (06:42)
[2024-03-02] MEDS: CELECOXIB 200 MG CAPSULE PO ×2 (08:30→16:45)
[2024-03-02] MEDS: OXYBUTYNIN 5 MG ER TAB PO (08:31)
[2024-03-02] MEDS: ENOXAPARIN 40 MG/0.4 ML SYRINGE SUBCUT (08:31)
[2024-03-02] MEDS: HYDROXYCHLOROQUINE 200 MG TABLET PO (08:31)
[2024-03-02] MEDS: BACLOFEN 10 MG TABLET 20 MG PO (08:31)
[2024-03-02] MEDS: PREGABALIN 25 MG CAPSULE PO ×2 (08:31→16:46)
[2024-03-02 08:39] VITALS: BP 158/59; PULSE 68; RESP 16; TEMP 35.8; O2SAT 99
[2024-03-02] MEDS: CEFEPIME 2 GM in SODIUM CHLORIDE 0.9% 100 ML IV ×2 (08:46→20:36)
--- NOTE | 2024-03-02 08:57 | PC.NURSE ---
Assess- Patient complains of 9/10 pain to l.ankle, she has a soft cast/with fantasma wrap in place, ppx2 and foot is warm. She is alert and oriented x4 and her is at bedside. She is resting comfortably.
--- NOTE | 2024-03-02 11:15 | DIET.CONS ---
Dietary Consultation Note Admission Date: 02/29/2024 11:39 Assessment: 74 y F admitted for post op wound infection. Nutrition screened for low MNA. Met with pt at bedside, reported low appetite last 2 weeks, with skipped meals and decreased intake of meal portion. Intentional weight loss over last year and a half of 60 lb due to diet change and increased exercise, unintentional weight loss past 2 weeks of 7 lb. Is lactose intolerant. Diet recall: B: leftovers (w/ meat) and 2-3 eggs and collagen protein in coffee, D: Vegetables and meat. Nutrition focused physical exam performed: Mild-moderate loss in temporalis muscle Mild loss buccal and orbital fat pads Assessed: clavicle region and interosseous muscles w/ no significant findings Ht: 157.48 cm Wt: 67 kg BMI: 27.0 UBW: 70 kg per pt report 2 weeks ago (4% weight loss in 1 month, non-severe) Last BM: 03/01/24 (03/01/24 16:00) MNA: 8 Justin Score: 18 Diet: 03/01/24 Dinner Courtesy Tray (Peds, comfort care) Diet Modifications: 03/02/24 Breakfast General (Regular) Diet Diet Modifications: Food Texture: Level 7 - Regular Liquid Consistency: Level 0 - Thin Labs: RBC 2.88 X10^6/uL (4.0-5.2) L 03/02/24 05:30 Hgb 8.7 g/dL (12.0-16.0) L 03/02/24 05:30 Hct 25.7 % (36-46) L 03/02/24 05:30 Creatinine 0.52 mg/dL (0.52-1.04) 03/02/24 05:30 Nutrition Diagnosis: Unintentional weight loss r/t to decreased appetite, skipped meals as evidenced by 4% weight loss in 1 month, non-severe. Interventions: 1. protein supplementation to support wound healing/adequate protein intake, discussed adequate protein intake EER: [id number] kcals (23-25 kcals/kg per BMI) 75-85 g protein (1.1-1.2 g/kg, healing) Monitoring/Evaluations: po intake Electronically Signed by: Trice Ronquillo 03/02/24 11:15 Clinical Dietitian [address] [id number]
[2024-03-02 12:00] VITALS: BP 141/53; PULSE 66; RESP 18; TEMP 36.8; O2SAT 99
--- NOTE | 2024-03-02 13:07 | P.PN_ITS ---
Subjective Subjective Date Patient Seen: 03/02/24 Time Patient Seen: 13:07 Interval history: Patient is having moderate to severe pain. Denies any fever /chills. No nausea /vomiting. Exam Vital Signs (past 8 hours): - 03/02/24 06:00 03/02/24 08:39 03/02/24 12:00 Temperature 97.9 F 96.5 F L 98.2 F Pulse Rate 77 68 66 Respiratory Rate 16 16 18 Blood Pressure 182/65 H 158/59 H 141/53 H Pulse Oximetry 96 99 99 Oxygen Flow Rate 0 0 0 Oxygen Delivery Method Room Air Oxygen Flow Rate 0 Narrative Exam Narrative: Pleasant 74-year-old female resting comfortably in bed in no apparent distress. Splint in place left lower extremity. Good capillary refill left lower extremity. Motor functions intact with good movement of all toes. Sensation grossly intact to light touch distally. Const General: cooperative and comfortable Nutritional Appearance: average body habitus Orientation: alert Resp Effort & Inspection: normal respiratory effort and able to speak in complete sentences Objective Labs 03/02/24 05:30 03/02/24 05:30 Labs: Laboratory Results - last 24 hr 03/02/24 05:30 WBC 7.5 RBC 2.88 L Hgb 8.7 L Hct 25.7 L MCV 89.4 MCH 30.3 MCHC 33.9 RDW 13.8 Plt Count 335 Neut % (Auto) 78.8 H Lymph % (Auto) 15.3 L [place] % (Auto) 5.5 Eos % (Auto) 0.1 L Baso % (Auto) 0.3 Neut # (Auto) 5900 Lymph # (Auto) 1100 [place] # (Auto) 400 Eos # (Auto) 0 Baso # (Auto) 0 Sodium 137 Potassium 4.1 Chloride 103 Carbon Dioxide 28 COMMENTS: Comment lateral & medial specimens; GS, aerobic, anaerobic Procedure Result Verified Site Gram Stain Final 02/29/24- 1901 White blood cells Occasional WBC seen Gram Negative Rods 1+ Aerobic Culture for wounds Final 03/02/24- 0845 Organism 1 Enterobacter cloacae complex Growth HEAVY 1. Enterobacter cloacae complex M.I.C. RX --------- --- * Amikacin <=2 S * Amoxicillin/Clavulanate >=32 R * Aztreonam <=1 S * Cefepime <=1 S * Cefotaxime <=1 S * Cefotetan R * Cefoxitin >=64 R * Ceftazidime R * Ceftriaxone R * Cefuroxime 16 I * Ciprofloxacin <=0.25 S * Ertapenem <=0.5 S * Gentamicin <=1 S * Imipenem <=0.25 S * Levofloxacin <=0.12 S * Tetracycline <=1 S * Tobramycin <=1 S * Trimethoprim/Sulfamethoxazole <=20 S Anaerobic Culture Pending SPEC #: [id number] YAIMA: 03/01/24 STATUS: RES REQ #: [id number] SPDESC: RECD: 03/01/[address]: Jill Khalil MD SOURCE: Ankle Lt ENTR: 03/01/[address]: Althea Lion MD FAX TO: ORDERED: WOUND Cx and GS COMMENTS: Comment LEFT ANKLE WOUND TISSUE Procedure Result Verified Site Gram Stain Final 03/01/242214 <No reportable results for this procedure> Aerobic Culture for wounds Preliminary 03/02/24- 1233 Organism 1 Gram negative bacilli Growth MODERATE Anaerobic Culture PendingBUN 11 Creatinine 0.52 Estimated GFR > 60 BUN/Creatinine Ratio 21.2 Glucose 108 Calcium 9.4 Vancomycin Trough 12.1 PFSH Medical History Sepsis (2021) Asthma Anesthesia complication Hypothyroidism Mycoplasma infection Surgical History History of carpal tunnel release of both wrists (1979) History of hysterectomy History of back surgery Social History household members: spouse and children Smoking Status: Former smoker alcohol intake: former Assessment & Plan Post-op Postoperative Procedures: Procedures Operation Date: 03/01/24 15:45 Actual Procedure Side Surgeon p Irrigation Debridement Ankle Fracture hardware infection Left Jill Khalil MD Postoperative day: 1 Postoperative status: marginal pain control Postoperative status narrative: Stable status post debridement muscle and fascia and periosteum left ankle deep hardware infection medial incision, debridement muscle fascia and periosteum left ankle lateral incision separate site. Postoperative plan narrative: Continue to monitor on her micro results so that we can tailor her antibiotics. Hospitalist has been consulted to help with antibiotics. I did speak with the hospitalist today and he has left a message for Dr. Rose infectious disease located within [facility]. Touchdown or nonweightbearing left lower extremity Sutures to remain in place for a minimum of 3 weeks Lovenox 40 mg daily while in the hospital for DVT prophylaxis, discharge DVT prophylaxis can be changed to aspirin 325 mg daily. Quality VTE Deep Vein Thrombosis/Pulmonary Embolism Present on Admission: No
--- NOTE | 2024-03-02 14:27 | CM.DPNOTE ---
DCP Cont Met w/patient and her spouse; reviewed discharge plan options. Cultures pending, drug, dosing, duration unknown until finalized. Discussed the following discharge options for receiving IV abx: SNF vs home infusion vs outpatient infusion at the [facility]. Patient will be in a wheelchair, able to self transfer (mostly) needs assist at times d/t poor activity tolerance. NWbing on her left foot. CM team following closely for coordination of discharge plan. ANABELLA
--- NOTE | 2024-03-02 15:44 | PM.PN.1 ---
Subjective Subjective Interval history: Had worsened pain this morning, improved in the afternoon. Still feels like an intense burning / rubbing sensation. Would like to try 50 mg of lyrica in the AM instead of 25, and continue 100 mg at night. Superficial wound cultures are growing enterbacter, with resistance to some cephalosporins. Discussed with ID, recommended continuing cefepime for now, follow up for final recommendations once OR cultures finalized prior to discharge. Exam Vital Signs (past 8 hours): - 03/02/24 08:39 03/02/24 12:00 Temperature 96.5 F L 98.2 F Pulse Rate 68 66 Respiratory Rate 16 18 Blood Pressure 158/59 H 141/53 H Pulse Oximetry 99 99 Oxygen Flow Rate 0 0 Oxygen Delivery Method Room Air Oxygen Flow Rate 0 Narrative Exam Narrative: General:? Patient is well developed and well nourished, in no distress at this time. Chest:? Normal AP diameter and contour without kyphoscoliosis, no tachypnea, equal chest rise bilaterally. Lungs:? CTA b/l no wheezing rhonchi or rales. Cardio:?RRR no m/r/g. Abdomen: S NT ND. Musculoskeletal:? Muscle strength and tone are equal within normal limits, no deformity. Extremities: Left leg trace edema, cast in place. Neuro:? Alert and orientated x3,? sensation to touch intact in all extremities, no gross deficits noted of cranial nerves. Psych:? Patient has a well-kept appearance, appropriate affect, mental status attitude thought context and judgment are appropriate for age. Objective Labs 03/02/24 05:30 03/02/24 05:30 Labs: Laboratory Results - last 24 hr 03/02/24 05:30 WBC 7.5 RBC 2.88 L Hgb 8.7 L Hct 25.7 L MCV 89.4 MCH 30.3 MCHC 33.9 RDW 13.8 Plt Count 335 Neut % (Auto) 78.8 H Lymph % (Auto) 15.3 L [place] % (Auto) 5.5 Eos % (Auto) 0.1 L Baso % (Auto) 0.3 Neut # (Auto) 5900 Lymph # (Auto) 1100 [place] # (Auto) 400 Eos # (Auto) 0 Baso # (Auto) 0 Sodium 137 Potassium 4.1 Chloride 103 Carbon Dioxide 28 BUN 11 Creatinine 0.52 Estimated GFR > 60 BUN/Creatinine Ratio 21.2 Glucose 108 Calcium 9.4 Vancomycin Trough 12.1 PFSH Medical History Sepsis (2021) Asthma Anesthesia complication Hypothyroidism Mycoplasma infection Surgical History History of carpal tunnel release of both wrists (1979) History of hysterectomy History of back surgery Social History household members: spouse and children Smoking Status: Former smoker alcohol intake: former Assessment & Plan Assessment & Plan narrative: 1. Gram negative post op wound infection, L ankle, present on admission - continue cefepime 2g q12 for now for enterobacter cloacae on superficial wounds. Discontinue - SOFA score <2, no evidence of sepsis - I&D management by orthopedic surgery. - follow up operative cultures, currently with gram negative rods. - discussed with infectious disease, provider requests outpatient referral and to follow up prior to discharge with final culture results from OR. - changed lyrica to 50 mg in the AM for current pain along with prior opiate induced encephalopathy. Continue 100 mg at night. Can hopefully resume home dosing upon discharge. 2. Hypothyroid, chronic - continue home levothyroxine 3. Asthma, chronic - no acute exacerbation, no recent symptoms 4. Acute blood loss anemia - secondary to surgical interventions, follow h/h with CBC daily. Code: Full, surrogate is patient's spouse and daughter DVT: per primary I have utilized all available immediate resources to obtain, update, or review the patient's current medications. Dispo: patient admitted under inpatient status. Medicine will continue to follow along for consultation. Additional history obtained via discussions with the orthopedic provider. These discussions contributed to the creation of the above assessment and plan. I have reviewed patient's presenting documentation, labs, and imaging personally. Quality VTE Deep Vein Thrombosis/Pulmonary Embolism Present on Admission: No
[2024-03-02 16:00] VITALS: BP 113/49; PULSE 74; RESP 16; TEMP 37.2; O2SAT 96
[2024-03-02 20:17] VITALS: BP 131/45; PULSE 77; RESP 16; TEMP 36.7; O2SAT 96
[2024-03-02] MEDS: PREGABALIN 50 MG CAPSULE 100 MG PO (20:35)
[2024-03-02] MEDS: SENNOSIDES 8.6 MG TABLET 17.2 MG PO (20:35)
[2024-03-03 01:00] VITALS: BP 135/48; PULSE 73; RESP 18; TEMP 37.1; O2SAT 94
[2024-03-03] MEDS: HYDROCODONE/ACET 10/325 TABLET 1 TAB PO ×2 (01:18→05:10)
[2024-03-03 04:18] VITALS: BP 122/48; PULSE 72; RESP 17; TEMP 36.5; O2SAT 97
[2024-03-03] MEDS: PANTOPRAZOLE DR 20 MG TABLET PO (05:10)
[2024-03-03] MEDS: LIOTHYRONINE 5 MCG TABLET PO (05:10)
[2024-03-03] MEDS: LEVOTHYROXINE 75 MCG TABLET PO (05:10)
[2024-03-03 07:00] LABS: Add Manual Diff / Slide Review NO; Basophils Absolute Auto 0 /uL (0-100); Basophils Percent Auto 0.3 % (0-2); Chloride 104 mmol/L (98-107); Eosinophils Absolute Auto 200 /uL (0-450); Eosinophils Percent Auto 2.8 % (2-4); HEMOLYSIS < 15 (0-50); Hematocrit 25.9 % (36-46); Hemoglobin 8.6 g/dL (12.0-16.0); Lymphocytes Absolute Auto 2600 /uL (1100-4500); Lymphocytes Percent Auto 30.1 % (25-40); Mean Corpuscular Hemoglobin 29.7 PG (26-34); Monocytes Absolute Auto 600 /uL (0-900); Neutrophils Absolute Auto 5200 /uL (1500-7000); Neutrophils Percent Auto 59.8 % (50-75); Platelet Count 337 X10^3/uL (150-400); Red Blood Cell Count 2.88 X10^6/uL (4.0-5.2); Red Cell Distribution Width 13.9 % (11.6-14.8); White Blood Cell Count 8.7 X10^3/uL (4.5-11.0)
[2024-03-03 07:03] LABS: BUN Creatinine Ratio 41.7 (6-22); Blood Urea Nitrogen 30 mg/dL (7-17); Carbon Dioxide 31 mmol/L (22-32); Estimated Glomerular Filt Rate > 60 mL/min (>60); Glucose 96 mg/dL (80-110); Potassium 4.1 mmol/L (3.4-5.1); Sodium 137 mmol/L (137-145)
--- NOTE | 2024-03-03 07:50 | PM.PN.1 ---
Subjective Subjective Interval history: Patient's OR cultures growing enterobacter with sensitivities discussed with Dr. Rose. She recommended changing cefepime to ertapenem 1g daily for 6 weeks until 04/12/24. Patient's family in room and home abx via [facility] vs coming to hospital for infusions daily was discussed. All questions were answered. They would like her norco changed to something without tylenol so they can monitor for fevers at home. She has allergy to oxy so po dilaudid ordered. Exam Vital Signs (past 8 hours): - 03/03/24 01:00 03/03/24 04:18 Temperature 98.8 F 97.7 F Pulse Rate 73 72 Respiratory Rate 18 17 Blood Pressure 135/48 L 122/48 L Pulse Oximetry 94 97 Oxygen Flow Rate 0 0 Oxygen Delivery Method Room Air Oxygen Flow Rate 0 Narrative Exam Narrative: General:? Patient is well developed and well nourished, in no distress at this time. Chest:? Normal AP diameter and contour without kyphoscoliosis, no tachypnea, equal chest rise bilaterally. Lungs:? CTA b/l no wheezing rhonchi or rales. Cardio:?RRR no m/r/g. Abdomen: S NT ND. Musculoskeletal:? Muscle strength and tone are equal within normal limits, no deformity. Extremities: Left leg trace edema, cast in place. Neuro:? Alert and orientated x3,? sensation to touch intact in all extremities, no gross deficits noted of cranial nerves. Psych:? Patient has a well-kept appearance, appropriate affect, mental status attitude thought context and judgment are appropriate for age. Objective Labs 03/03/24 06:40 03/03/24 06:40 Labs: Laboratory Results - last 24 hr 03/03/24 06:40 WBC 8.7 RBC 2.88 L Hgb 8.6 L Hct 25.9 L MCV 90.0 MCH 29.7 MCHC 33.0 RDW 13.9 Plt Count 337 Neut % (Auto) 59.8 Lymph % (Auto) 30.1 [place] % (Auto) 7.0 Eos % (Auto) 2.8 Baso % (Auto) 0.3 Neut # (Auto) 5200 Lymph # (Auto) 2600 [place] # (Auto) 600 Eos # (Auto) 200 Baso # (Auto) 0 Sodium 137 Potassium 4.1 Chloride 104 Carbon Dioxide 31 BUN 30 H Creatinine 0.72 Estimated GFR > 60 BUN/Creatinine Ratio 41.7 H Glucose 96 Calcium 9.0 PFSH Medical History Sepsis (2021) Asthma Anesthesia complication Hypothyroidism Mycoplasma infection Surgical History History of carpal tunnel release of both wrists (1979) History of hysterectomy History of back surgery Social History household members: spouse and children Smoking Status: Former smoker alcohol intake: former Assessment & Plan Assessment & Plan narrative: 1. Gram negative post op wound infection, L ankle, present on admission - changed to ertapenem 1g daily x6 weeks until 04/12/24 for enterobacter cloacae on superficial wounds. - SOFA score <2, no evidence of sepsis - I&D management by orthopedic surgery. - discussed with infectious disease, they will follow patient in clinic and monitor labs while on abx - changed lyrica to 50 mg in the AM for current pain along with prior opiate induced encephalopathy. Continue 100 mg at night. Can hopefully resume home dosing upon discharge. 2. Hypothyroid, chronic - continue home levothyroxine 3. Asthma, chronic - no acute exacerbation, no recent symptoms 4. Acute blood loss anemia - secondary to surgical interventions, follow h/h with CBC daily. Code: Full, surrogate is patient's spouse and daughter DVT: per primary I have utilized all available immediate resources to obtain, update, or review the patient's current medications. Dispo: patient admitted under inpatient status. Medicine will continue to follow along for consultation. Expect discharge on 03/04. Additional history obtained via discussions with the orthopedic provider. These discussions contributed to the creation of the above assessment and plan. I have reviewed patient's presenting documentation, labs, and imaging personally. Quality VTE Deep Vein Thrombosis/Pulmonary Embolism Present on Admission: No
[2024-03-03 08:01] VITALS: BP 141/47; PULSE 70; TEMP 36.6; O2SAT 96
[2024-03-03] MEDS: BACLOFEN 10 MG TABLET 20 MG PO (08:15)
[2024-03-03] MEDS: ACETAMINOPHEN 325 MG TABLET 650 MG PO (08:15)
[2024-03-03] MEDS: OXYBUTYNIN 5 MG ER TAB PO (08:16)
[2024-03-03] MEDS: ENOXAPARIN 40 MG/0.4 ML SYRINGE SUBCUT (08:16)
[2024-03-03] MEDS: CELECOXIB 200 MG CAPSULE PO ×2 (08:16→16:24)
[2024-03-03] MEDS: HYDROXYCHLOROQUINE 200 MG TABLET PO (08:17)
[2024-03-03] MEDS: PREGABALIN 25 MG CAPSULE 50 MG PO (08:17)
[2024-03-03] MEDS: CEFEPIME 2 GM in SODIUM CHLORIDE 0.9% 100 ML IV (08:18)
--- NOTE | 2024-03-03 08:34 | PC.NURSE ---
Patient is in good spirits today, she is comfortable and denies discomfort, her l.ankle has as splinted cast with fantasma wrap intact. Foot is warm and ppx2. IV antibiotics up and hanging.
[2024-03-03] MEDS: ERTAPENEM 1 GM in SODIUM CHLORIDE 0.9% 100 ML IV (08:39)
--- NOTE | 2024-03-03 10:15 | PT.IIE ---
Current Diagnoses Other fracture of left lower leg, subsequent encounter for closed fracture with routine healing (02/29/24) Infection following a procedure, other surgical site, initial encounter (02/29/24) Surgery Performed Operation Date: 03/01/24 15:45 Actual Procedures p Irrigation Debridement Ankle Fracture hardware infection(Left) - Jill Khalil MD Surgical History (Last Reviewed 03/01/24 @ 14:24 by Doc Milner DO) History of back surgery History of carpal tunnel release of both wrists (1979) History of hysterectomy Medical History (Last Reviewed 03/01/24 @ 14:24 by Doc Milner DO) Anesthesia complication Asthma Hypothyroidism Mycoplasma infection Sepsis (2021) Physical Therapy Inpatient Evaluation/Re-Eval M1 PT/OT-IP Prior Functional Status Start: 03/03/24 12:41 Freq: NEEDED Status: Active Protocol: Document 03/03/24 10:15 AB (Rec: 03/03/24 12:55 AB [id number]) Medical Review Prior Functional Status Medical History Reviewed Yes Communication able to make needs known Mobility and Gait pt stated that she had an ankle fx 02/05/24 and prior to fx, was independent with all mobilities and ambulation without AD. pt s/p L ankle ORIF 02/16/24 and stated that she was modifed independent with transfers using a standard walker and was NWB on LLE since fx. Social History Household Members spouse,children Living Arrangements House Number of Floors (Floors) One Floor Number of Stairs To Enter/Railing? ramp to enter Home Environment Standard Height Toilet,Walk in Shower,Ramp Home Equipment Manual Wheelchair,Shower Seat with Backrest,Hand Held Shower ,Grab Bars In Shower Additional Social History Comment pt has a standard walker M2 PT-IP Current Condition Start: 03/03/24 12:41 Freq: NEEDED Status: Active Protocol: Document 03/03/24 10:15 AB (Rec: 03/03/24 12:55 AB [id number]) Physical Therapy Current Condition Current Condition Evaluation Date 03/03/24 Treatment Diagnosis L ankle infection s/p debridement; difficulty in walking Onset Date 02/29/24 M3 PT-IP Subjective Start: 03/03/24 12:41 Freq: NEEDED Status: Active Protocol: Document 03/03/24 10:15 AB (Rec: 03/03/24 12:55 AB [id number]) Subjective Physical Therapy Visit Type Type Initial Evaluation Visit Start Time 10:15 Visit Stop Time 10:55 Number of COMBINATION WORKER Visits 0 Physical Therapy Visit Comments Patient Comments agreeable to do PT Therapy Pain Assessment Pain When Pain Assessed At Rest Pain Present Pain Present Pain Reported Location Left Ankle Intensity 6 Scale Used Numeric (0 - 10) Pain Management Techniques Distraction,Modification of Treatment,Re-positioning, Timing of Activity with Medications M4 PT-IP Mobility and Gait Start: 03/03/24 12:41 Freq: NEEDED Status: Active Protocol: Document 03/03/24 10:15 AB (Rec: 03/03/24 12:55 [id number]) PT-Bed Mobility Assessment Supine to Sit Supine to Sit Standby Assistance PT-Transfer Assessment Sit to and From Stand Sit to and from Stand Standby Assistance Equipment Transfer Assistive Device Gait Belt,Front Wheeled Walker Orthotic/Prosthetic Devices or Brace: Yes Transfers Transfer Destination Chair Transfer Technique Stand Step Pivot Transfer Ability Level of Assist Standby Assistance,Contact Guard Assistance,1 Person Assistance,Use of Upper Extremities Comments Mobility Comments pt supine ni bed and agreeable to do PT. obtained PLOF and home set up from pt. pt is aware of weight bearing restriction of NWB on LLE. L ankle on a soft cast. informed pt regarding knee scooter and educated on pros and cons and pt stated that she is fine using her w/c . pt completed supine to sit SBA . completed sit to stand SBA and step transfer using FWW SBA to CGA. pt agreed to ambulate but stated that she can only do 2 hops. pt completed sit to stand from the chair SBA and able to ambulate 2 steps forward and then stepped backwards using FWW SBA to CGA. pt agreed to stay up on the chair. positioned pt on the chair. call light and table placed within reach. Gait Assessment Gait Gait Assistance Required: Standby Assistance,Contact Guard Assist Distance (Feet) 2 Able to Maintain Weight Bearing Status Yes During Gait Assistive Devices Assistive Device Gait Belt,Front Wheeled Walker Orthotic/Prosthetic Devices or Brace: Yes Gait Deviations General Gait Pattern Decreased Stride Length, Decreased Feet Clearance Factors Limiting Gait Function Factors Limiting Gait Function Decreased Activity Tolerance, Decreased Sensation,Decreased Strength,Limited Range of Motion,Pain,Poor Balance,Poor Safety Awareness PT-Balance Assessment Sitting Balance and Reactions Static Sitting Balance Ability Normal Dynamic Sitting Balance Ability Good Standing Balance and Reactions Static Standing Balance Ability Fair Dynamic Standing Balance Ability Fair Device Used FWW M5 PT-IP Objective Assessments Start: 03/03/24 12:41 Freq: NEEDED Status: Active Protocol: Document 03/03/24 10:15 AB (Rec: 03/03/24 12:55 AB [id number]) Orientation Orientation/Cognition Level of Alertness Alert Orientation Name,Place,Situation Language Function Ability No Deficits Noted Safety Awareness Understands Safety Issues Memory Description No Deficits Noted Gross Range of Motion Lower Extremity ROM Assessment Within Functional Limits Strength Lower Extremity Strength Assessment Within Functional Limits Ankle LLE: NT Muscle Tone Muscle Tone WNL Yes M6 PT-IP Treatment Start: 03/03/24 12:41 Freq: NEEDED Status: Active Protocol: Document 03/03/24 10:15 AB (Rec: 03/03/24 12:55 AB [id number]) Physical Therapy Treatment Education Education Provided Precautions,Weight Bearing Status,Safety M7 PT-IP Assessment and Plan Start: 03/03/24 12:41 Freq: NEEDED Status: Active Protocol: Document 03/03/24 10:15 AB (Rec: 03/03/24 12:55 AB [id number]) PT Summary Assessment and Plan Potential Rehabilitation Potential Fair Status of Condition at Evaluation Stable Summary Impairments Pain,ROM,Strength,Balance, Coordination,Sensation,Tone, Cognition,Bed Mobility, Transfers,Gait,Activity Tolerance Assessment Summary pt is a 74 y/o F who has an ankle fx 02/05/24 and underwent L ankle ORIF . pt admitted for L ankle infection and pt underwent debridement. pt is NWB on LLE and ankle on a soft cast. pt requiring SBA to cGA with transfers using fWW. pt plans to go home and spouse will be able to assist her. pt may go home when medically stable. Goals Bed Mobility Goal Independent Transfer Goal Independent,Front Wheeled Walker Gait Goal Independent,Front Wheel Walker Gait Distance 25 Days to Meet Goals 5 Frequency of Treatment Frequency Of Treatment Once a Day Treatment Plan Physical Therapy Treatment Plan Bed Mobility Training,Transfer Training,Gait Training, Therapeutic Exercise,Balance Retraining,Post Op Education, Discharge Planning,Hot or Cold Pack,Neuromuscular Re-ed, Coordination Retraining,Manual Therapy Weight Bearing Status Weight Bearing Status Non-Weight Bearing Allowed Weight Bearing Amount (enter % LLE NWB or #) (%) Recommendations To Nursing Amount of Assist Needed 1 Person Assist Discharge Recommendations PT Discharge Recommendations Home with Assistance Transportation Needs at Discharge Private Vehicle
--- NOTE | 2024-03-03 10:20 | PM.PN.1 ---
Subjective Subjective Interval history: Jocelin is a pleasant 74 year old female who is POD#2 s/p debridement muscle fascia and periosteum left ankle lateral and medial incision by Dr. Khalil. Patient has a history of a left ankle fracture sustained on 02/04/2023. She had an open reduction internal fixation on 02/[address] Khalil. She was recently diagnosed with a E coli UTI and has been cephalexin. During the interval time from when patient was last seen in our clinic to 02/29/24 her ankle wound has has broken down both medially and laterally along her ankle fracture with drainage and erythema concerning for deep infection. Her ankle pain had also increased. She was therefore readmitted to the hospital for IV antibiotics and irrigation debridement of her wounds/deep infection with complicating hardware. Patient underwent surgery/irrigation and debridement with Dr. Khalil on 03/01/24, the ankle fracture hardware was intact without loosening and was therefore left in place. Cultures were taken and we are awaiting final growth results, will plan to tailor antibiotics pending final results. Patient currently getting Cefepime. Also working with hospitalist to get patient arranged with outpatient infectious disease at [facility] and IV abx infusions. Patient's family has concerns about using [place] as it contains Tylenol and this may reduce patient's temperature and they are concerned that it would mask a fever if patient were to have worsening infection. Patient also reports she does not tolerate oxycodone well. We discussed goals of the treatment would be to maintain the hardware as her ankle fracture is not yet healed and eradicate infection and treat with antibiotics. We discussed if infection is not eradicated she may later require hardware removal or exchange of hardware. Exam Vital Signs (past 8 hours): - 03/03/24 04:18 03/03/24 08:01 Temperature 97.7 F 97.9 F Pulse Rate 72 70 Respiratory Rate 17 Blood Pressure 122/48 L 141/47 H Pulse Oximetry 97 96 Oxygen Flow Rate 0 Oxygen Delivery Method Room Air Oxygen Flow Rate 0 Narrative Exam Narrative: Lying in bed comfortably during our interview today. Family at bedside. Resp Effort & Inspection: normal respiratory effort and able to speak in complete sentences Cardio Rate: regular rate Neuro General: patient alert, patient awake and patient oriented x3 Extrem Other: Webril, Luis Felipe wrap and a stirrup Orthoglass splint in neutral position in place over patients left lower extremity. No drainage seen through the dressings. Wiggles all toes, 5/5 EHL. Brisk capillary refill. Sensation intact throughout the left lower extremity. Psych Speech and Movement: speech and movement normal Objective Labs 03/03/24 06:40 03/03/24 06:40 Labs: Laboratory Results - last 24 hr 03/03/24 06:40 WBC 8.7 RBC 2.88 L Hgb 8.6 L Hct 25.9 L MCV 90.0 MCH 29.7 MCHC 33.0 RDW 13.9 Plt Count 337 Neut % (Auto) 59.8 Lymph % (Auto) 30.1 [place] % (Auto) 7.0 Eos % (Auto) 2.8 Baso % (Auto) 0.3 Neut # (Auto) 5200 Lymph # (Auto) 2600 [place] # (Auto) 600 Eos # (Auto) 200 Baso # (Auto) 0 Sodium 137 Potassium 4.1 Chloride 104 Carbon Dioxide 31 BUN 30 H Creatinine 0.72 Estimated GFR > 60 BUN/Creatinine Ratio 41.7 H Glucose 96 Calcium 9.0 PFSH Medical History Sepsis (2021) Asthma Anesthesia complication Hypothyroidism Mycoplasma infection Surgical History History of carpal tunnel release of both wrists (1979) History of hysterectomy History of back surgery Social History household members: spouse and children Smoking Status: Former smoker alcohol intake: former Assessment & Plan Assessment & Plan narrative: 1) Continue to monitor on her micro results so that we can tailor her antibiotics. Hospitalist has been consulted to help with antibiotics and has been in contact with Dr. Rose, infectious disease [facility]. Patient can be discharged once final cultures are back and IV abx infusions are set up. 2) Touchdown or nonweightbearing left lower extremity, okay to use a walker to stand. 3) Sutures to remain in place for a minimum of 3 weeks, keep dressing intact until follow up appointment with Dr. Matias on 03/24/24. Dressing can be changed if needed for wound concerns or issues. Counseled patient and family on signs of infection to monitor for other than fever (purulent discharge, significantly worsening pain). 4) Lovenox 40 mg daily while in the hospital for DVT prophylaxis, discharge DVT prophylaxis can be changed to aspirin 325 mg daily. 5) Follow up at our office on 03/24/24 at 1:00pm with Dr. Khalil, call our office to be seen sooner if questions or concerns arise. Quality VTE Deep Vein Thrombosis/Pulmonary Embolism Present on Admission: No
[2024-03-03 16:00] VITALS: BP 147/50; PULSE 75; TEMP 36.6; O2SAT 97
[2024-03-03] MEDS: HYDROMORPHONE 2 MG TABLET 0.5 MG PO ×2 (16:25→21:21)
[2024-03-03] MEDS: PREGABALIN 50 MG CAPSULE 100 MG PO (20:05)
[2024-03-03 21:05] VITALS: BP 157/61; PULSE 78; RESP 18; TEMP 36.6; O2SAT 97
[2024-03-03] MEDS: SENNOSIDES 8.6 MG TABLET 17.2 MG PO (21:21)
[2024-03-03] MEDS: SODIUM CHLORIDE 0.9% FLUSH 10 ML IV (21:22)
[2024-03-04 00:15] VITALS: BP 167/61; PULSE 75; RESP 16; TEMP 36.4; O2SAT 100
[2024-03-04] MEDS: HYDROMORPHONE 2 MG TABLET 0.5 MG PO (01:28)
[2024-03-04] MEDS: LEVOTHYROXINE 75 MCG TABLET PO (05:21)
[2024-03-04] MEDS: LIOTHYRONINE 5 MCG TABLET PO (05:21)
[2024-03-04] MEDS: PANTOPRAZOLE DR 20 MG TABLET PO (05:21)
[2024-03-04 05:35] VITALS: BP 136/55; PULSE 74; RESP 18; TEMP 36.3; O2SAT 96
[2024-03-04 08:00] VITALS: BP 148/59; PULSE 78; RESP 16; TEMP 36.7; O2SAT 96
--- NOTE | 2024-03-04 09:14 | P.DS_ITS ---
History of Present Illness History of Present Illness Chief complaint: L ankle infection Narrative: Jocelin is a pleasant 74 year old female who is POD#3 s/p debridement muscle fascia and periosteum left ankle lateral and medial incision by Dr. Khalil. Patient has a history of a left ankle fracture sustained on 02/04/2023. She had an open reduction internal fixation on 02/[address] Khalil. She was recently diagnosed with a E coli UTI and has been cephalexin. During the interval time from when patient was last seen in our clinic to 02/29/24 her ankle wound has has broken down both medially and laterally along her ankle fracture with drainage and erythema concerning for deep infection. Her ankle pain had also increased. She was therefore readmitted to the hospital for IV antibiotics and irrigation debridement of her wounds/deep infection with complicating hardware. Patient underwent surgery/irrigation and debridement with Dr. Khalil on 03/01/24, the ankle fracture hardware was intact without loosening and was therefore left in place. Cultures were taken and so far are growing enterobacter, per hospitalist who spoke with Dr. Rose, infectious disease at [facility], she recommended changing cefepime to ertapenem 1g daily for 6 weeks until 04/12/24. This change was made yesterday. A referral to outpatient infectious disease at [facility] was placed by Dr. Martinez. Working with hospitalist and CM to get patient arranged with IV abx infusions, working on quote for home IV infusions vs hospital infusion. Patient's family has concerns about using [place] as it contains Tylenol and this may reduce patient's temperature and they are concerned that it would mask a fever if patient were to have worsening infection. Patient also reports she does not tolerate oxycodone well. PO Dilaudid was ordered by hospitalist yesterday to address this concern. She is also utilizing Celebrex and Lyrica for pain control. We discussed goals of the treatment would be to maintain the hardware as her ankle fracture is not yet healed and eradicate infection and treat with antibiotics. We discussed if infection is not eradicated she may later require hardware removal or exchange of hardware. Denies fever, chills, chest pain, SOB, nausea, vomiting. Operative Date/Time/Diagnoses Date of procedure: 03/01/24 Time of procedure: 17:45 Pre-op diagnosis: Left ankle deep infection, surgical site, hardware complicating infection. Post-op diagnosis: same Procedure & Clinicians Procedure: Debridement muscle and fascia and periosteum left ankle deep hardware infection. CPT code 24907 medial incision Debridement muscle fascia and periosteum left ankle lateral incision separate site separate incision CPT code 31382 Same procedure as scheduled: Yes Surgeon: Jill Khalil Anesthesia Type: General and Local Discharge Providers Provider Date of admission: 02/29/24 11:39 Discharge Date: 03/04/24 Primary care physician: Althea Lion MD Consults: 02/29/24 12:26 Consult to Discharge Planning Routine Comment: picc line Home IV abx 03/01/24 07:15 Consult to Hospitalist Service Routine Comment: Consulting Provider: Doc Milner Reason for consultation: wound infection/uti r/o bacteremia Has provider been notified: Yes 03/03/24 08:39 Consult to Physical Therapy Evaluate & Treat Comment: Physician Instructions: Evaluate and Treat Discharge provider: Danya Christina PA-C Summary Hospital Course Discharge Diagnosis: Left deep ankle surgical site infection with hardware complicating infection s/p irrigation and debridement. Hospital Course: Hospital course complicated by poor pain control postop day #1 as well as awaiting final culture results and arranging appropriate antibiotic/infectious disease management of a post surgical, left ankle deep wound infection complicated by orthopedic fracture hardware. Exam Vital Signs (past 8 hours): - 03/04/24 05:35 03/04/24 08:00 Temperature 97.3 F L 98.1 F Pulse Rate 74 78 Respiratory Rate 18 16 Blood Pressure 136/55 L 148/59 H Pulse Oximetry 96 96 Oxygen Flow Rate 0 0 Oxygen Delivery Method Room Air Oxygen Flow Rate 0 Narrative Exam Narrative: Lying in bed comfortably during our interview today. at bedside. Resp Effort & Inspection: normal respiratory effort and able to speak in complete sentences Cardio Rate: regular rate Other: Brisk capillary refill. Neuro General: patient alert, patient awake and patient oriented x3 Extrem Other: Webril, Luis Felipe wrap and a stirrup Orthoglass splint in neutral position in place over patients left lower extremity. No drainage seen through the dressings. Wiggles all toes, 5/5 EHL. Brisk capillary refill. Sensation intact throughout the left lower extremity. Psych Speech and Movement: speech and movement normal Objective Labs 03/03/24 06:40 03/03/24 06:40 [facility] Medical History Sepsis (2021) Asthma Anesthesia complication Hypothyroidism Mycoplasma infection Surgical History History of carpal tunnel release of both wrists (1979) History of hysterectomy History of back surgery Social History household members: spouse and children Smoking Status: Former smoker alcohol intake: former Discharge Assessment & Plan Assessment and Plan Assessment: Left deep ankle surgical site infection with hardware complicating infection s/p irrigation and debridement. Plan of Treatment: 1) plan to discharge to home today with family. Working with Dr. Martinez and DOROTHY Lucas for IV antibiotic infusion. Plan for IV ertapenem 1g daily for 6 weeks with either hospital or home infusions. Picc line in place already. 2) Continue multimodal pain management. PO Dilaudid ordered by hospitalist for pain control. 3) Lovenox 40 mg daily while in the hospital for DVT prophylaxis, discharge DVT prophylaxis can be changed to aspirin 325 mg daily. Offered ASA rx, they have 325 ASA at home already. 4) Touchdown or nonweightbearing left lower extremity, okay to use a walker to stand. 5) Sutures to remain in place for a minimum of 3 weeks, keep dressing intact until follow up appointment with Dr. Matias on 03/24/24. Dressing can be changed if needed for wound concerns or issues. Counseled patient and family on signs of infection to monitor for other than fever (purulent discharge, significantly worsening pain). 6) Follow up at our office on 03/24/24 at 1:00pm with Dr. Khalil, call our office to be seen sooner if questions or concerns arise. All patient's questions were answered, they demonstrates understanding and are in agreement with the plan. Call our office if any questions or concerns arise. Discharge Plan Discharge Plan Patient Disposition: Home Provider Discharge Comment: You were diagnosed with an infection in the hardware of your left ankle. You will now be on IV antibiotics for at least [address] Rose infectious disease will follow-up with you in clinic and you will receive a call to schedule this. She will also be following your labwork while on antibiotics. Please follow-up with Dr. Khalil as well. I've increased your lyrica and placed you on oral dilaudid for pain. Discharge orders & Medications Prescriptions: New hydromorphone 2 mg tablet 0.5 mg PO Q4HR PRN (Reason: Pain, Severe (7-10)) Qty: 20 0RF pregabalin [Lyrica] 50 mg capsule 50 mg PO DAILY Qty: 30 0RF aspirin 325 mg tablet 325 mg PO DAILY Qty: 90 0RF Continued celecoxib 200 MG capsule 200 mg PO BIDCC Qty: 0 liothyronine [Cytomel] 5 MCG tablet 5 mcg PO QDAY Qty: 0 estradiol 0.01 % (0.1 mg/gram) cream 1 g vaginal DAILY pregabalin 100 mg capsule 100 mg PO BEDTIME albuterol sulfate [Ventolin HFA] 90 mcg/actuation Hfa Aerosol Inhaler 1 puff INHALATION Q4-6H PRN (Reason: Shortness Of Breath) baclofen 20 mg tablet 20 mg PO DAILY Patient Comments: take 1 tablet by mouth once daily if needed levothyroxine 75 mcg tablet 75 mcg PO DAILY Patient Comments: TAKE 1 TABLET BY MOUTH ONCE DAILY FOR 6 DAYS, THEN TAKE 1/2 TABLET ON SUNDAYS Rx Instructions: Sun takes 37.5mcg and takes 75mcg all other days hydroxychloroquine 200 mg Tablet 200 mg PO DAILY Qty: 0 oxybutynin chloride 5 mg tablet extended release 24hr 5 mg PO DAILY Rx Instructions: takes at 1800 Discontinued pregabalin 25 mg capsule 25 mg PO DAILY aspirin 81 mg Capsule 81 mg PO BID hydrocodone-acetaminophen 5-325 mg Tablet 1 tab PO Q4H PRN (Reason: pain) Qty: 60 0RF Follow up/Referrals: Althea Lion MD [Primary Care Provider] - 2 Weeks Other Ambulatory Orders: Referral to: (Schedule) Timeframe: 1 Week Location: Determined by Patient Ordered By: Doc Milner Diet/Activity/Treatments Diet: Diet as Tolerated Skin/Wound/Dressing Care Report to your healthcare provider any signs of infection, such as:: chills, fever, night sweats, increased pain, unusual drainage and unusual redness Visit Report/Discharge Packet Stand Alone Forms: Patient Portal/API, Stroke Signs & Symptoms Discharge Data Primary Care Provider: Althea Lion Quality VTE Deep Vein Thrombosis/Pulmonary Embolism Present on Admission: No
[2024-03-04] MEDS: BACLOFEN 10 MG TABLET 20 MG PO (09:44)
[2024-03-04] MEDS: CELECOXIB 200 MG CAPSULE PO (09:45)
[2024-03-04] MEDS: OXYBUTYNIN 5 MG ER TAB PO (09:47)
[2024-03-04] MEDS: PREGABALIN 25 MG CAPSULE 50 MG PO (09:47)
[2024-03-04] MEDS: HYDROXYCHLOROQUINE 200 MG TABLET PO (09:47)
[2024-03-04] MEDS: ENOXAPARIN 40 MG/0.4 ML SYRINGE SUBCUT (09:48)
--- NOTE | 2024-03-04 10:23 | PM.PN.1 ---
Subjective Subjective Interval history: Patient doing well and IV outpatient abx arranged. Patient states the dilaudid dose was effective for pain control. Exam Vital Signs (past 8 hours): - 03/04/24 05:35 03/04/24 08:00 Temperature 97.3 F L 98.1 F Pulse Rate 74 78 Respiratory Rate 18 16 Blood Pressure 136/55 L 148/59 H Pulse Oximetry 96 96 Oxygen Flow Rate 0 0 Oxygen Delivery Method Room Air Oxygen Flow Rate 0 Narrative Exam Narrative: General:? Patient is well developed and well nourished, in no distress at this time. Chest:? Normal AP diameter and contour without kyphoscoliosis, no tachypnea, equal chest rise bilaterally. Lungs:? CTA b/l no wheezing rhonchi or rales. Cardio:?RRR no m/r/g. Abdomen: S NT ND. Musculoskeletal:? Muscle strength and tone are equal within normal limits, no deformity. Extremities: Left leg trace edema, cast in place. Neuro:? Alert and orientated x3,? sensation to touch intact in all extremities, no gross deficits noted of cranial nerves. Psych:? Patient has a well-kept appearance, appropriate affect, mental status attitude thought context and judgment are appropriate for age. Objective Labs 03/03/24 06:40 03/03/24 06:40 [facility] Medical History Sepsis (2021) Asthma Anesthesia complication Hypothyroidism Mycoplasma infection Surgical History History of carpal tunnel release of both wrists (1979) History of hysterectomy History of back surgery Social History household members: spouse and children Smoking Status: Former smoker alcohol intake: former Assessment & Plan Assessment & Plan narrative: 1. Gram negative post op wound infection, L ankle, present on admission - changed to ertapenem 1g daily x6 weeks until 04/12/24 for enterobacter cloacae on superficial wounds. - SOFA score <2, no evidence of sepsis - I&D management by orthopedic surgery. - discussed with infectious disease, they will follow patient in clinic and monitor labs while on abx - changed lyrica to 50 mg in the AM for current pain along with prior opiate induced encephalopathy. Continue 100 mg at night. - sent script for low dose dilaudid due to family's concern that the tylenol in [place] would mask a fever 2. Hypothyroid, chronic - continue home levothyroxine 3. Asthma, chronic - no acute exacerbation, no recent symptoms 4. Acute blood loss anemia - secondary to surgical interventions, follow h/h with CBC daily. Code: Full, surrogate is patient's spouse and daughter DVT: ASA 81 BID I have utilized all available immediate resources to obtain, update, or review the patient's current medications. Medicine will sign off today. Thank you for allowing us to participate in the care of this patient. Should you have any further questions, do not hesitate to speak with us directly or call us. Quality VTE Deep Vein Thrombosis/Pulmonary Embolism Present on Admission: No
[2024-03-04] MEDS: ERTAPENEM 1 GM in SODIUM CHLORIDE 0.9% 100 ML IV (11:37)
[2024-03-04 12:00] VITALS: BP 125/60; PULSE 72; RESP 16; TEMP 36.9; O2SAT 95
--- NOTE | 2024-03-04 12:42 | PT.IPTN ---
Current Diagnoses Other fracture of left lower leg, subsequent encounter for closed fracture with routine healing (02/29/24) Infection following a procedure, other surgical site, initial encounter (02/29/24) Surgery Performed Operation Date: 03/01/24 15:45 Actual Procedures p Irrigation Debridement Ankle Fracture hardware infection(Left) - Jill Khalil MD Physical Therapy Treatment Note M2 PT-IP Current Condition Start: 03/03/24 12:41 Freq: NEEDED Status: Active Protocol: Document 03/03/24 10:15 AB (Rec: 03/03/24 12:55 AB [id number]) Physical Therapy Current Condition Current Condition Evaluation Date 03/03/24 Treatment Diagnosis L ankle infection s/p debridement; difficulty in walking Onset Date 02/29/24 M3 PT-IP Subjective Start: 03/03/24 12:41 Freq: NEEDED Status: Active Protocol: Document 03/04/24 13:36 TS (Rec: 03/04/24 13:42 TS [id number]) Subjective Physical Therapy Visit Type Type Treatment Note Visit Start Time 12:42 Visit Stop Time 13:00 Number of INSTALLATION DRAFTER Visits 1 Physical Therapy Visit Comments Patient Comments Pt found resting in bed, is agreeable to PT. M4 PT-IP Mobility and Gait Start: 03/03/24 12:41 Freq: NEEDED Status: Active Protocol: Document 03/04/24 13:36 TS (Rec: 03/04/24 13:42 TS [id number]) PT-Bed Mobility Assessment Supine to Sit Supine to Sit Standby Assistance Sit to Supine Sit to Supine Standby Assistance Scooting Scooting to Edge of Bed Standby Assistance PT-Transfer Assessment Sit to and From Stand Sit to and from Stand Standby Assistance Equipment Transfer Assistive Device Gait Belt,Front Wheeled Walker Orthotic/Prosthetic Devices or Brace: Yes Transfers Transfer Destination Bed,Chair Transfer Technique Stand Step Pivot Transfer Ability Level of Assist Standby Assistance,Use of Upper Extremities Comments Mobility Comments Supine to sit SBA with HOB elevated. STS from bed SBA with FWW, pt maintains NWB on LLE. She performed stand pivot to chair and back to bed SBA with mitesh for pushing from arms of chair. Sit to supine into bed SBA. pt was left in bed, SW discussing d/c plan. Gait Assessment Gait Gait Assistance Required: Standby Assistance Distance (Feet) 2 Able to Maintain Weight Bearing Status Yes During Gait Assistive Devices Assistive Device Gait Belt,Front Wheeled Walker Orthotic/Prosthetic Devices or Brace: Yes Gait Deviations General Gait Pattern Decreased Stride Length, Decreased Feet Clearance Factors Limiting Gait Function Factors Limiting Gait Function Decreased Activity Tolerance, Decreased Sensation,Decreased Strength,Limited Range of Motion,Pain,Poor Balance,Poor Safety Awareness PT-Balance Assessment Sitting Balance and Reactions Static Sitting Balance Ability Normal Dynamic Sitting Balance Ability Good Standing Balance and Reactions Static Standing Balance Ability Fair Dynamic Standing Balance Ability Fair Device Used FWW M5 PT-IP Objective Assessments Start: 03/03/24 12:41 Freq: NEEDED Status: Active Protocol: Document 03/03/24 10:15 AB (Rec: 03/03/24 12:55 AB [id number]) Orientation Orientation/Cognition Level of Alertness Alert Orientation Name,Place,Situation Language Function Ability No Deficits Noted Safety Awareness Understands Safety Issues Memory Description No Deficits Noted Gross Range of Motion Lower Extremity ROM Assessment Within Functional Limits Strength Lower Extremity Strength Assessment Within Functional Limits Ankle LLE: NT Muscle Tone Muscle Tone WNL Yes M6 PT-IP Treatment Start: 03/03/24 12:41 Freq: NEEDED Status: Active Protocol: Document 03/04/24 13:36 TS (Rec: 03/04/24 13:42 TS [id number]) Physical Therapy Treatment Education Education Provided Precautions,Weight Bearing Status,Safety M7 PT-IP Assessment and Plan Start: 03/03/24 12:41 Freq: NEEDED Status: Active Protocol: Document 03/04/24 13:36 TS (Rec: 03/04/24 13:42 TS [id number]) PT Summary Assessment and Plan Potential Rehabilitation Potential Fair Summary Impairments Pain,ROM,Strength,Balance, Coordination,Sensation,Tone, Cognition,Bed Mobility, Transfers,Gait,Activity Tolerance Progress Towards Goals Progressing Toward Goals Assessment Summary Jocelin is progressing well with her mobility. She is SBA for all bed mobility. She performs STS and stand pivot x2 with FWW SBA. She demonstrates good awareness of her NWB precaution on LLE. PT is recommending home with assist and HHPT. Goals Bed Mobility Goal Independent Transfer Goal Independent,Front Wheeled Walker Gait Goal Independent,Front Wheel Walker Gait Distance 25 Days to Meet Goals 5 Frequency of Treatment Frequency Of Treatment Once a Day Treatment Plan Physical Therapy Treatment Plan Bed Mobility Training,Transfer Training,Gait Training, Therapeutic Exercise,Balance Retraining,Post Op Education, Discharge Planning,Hot or Cold Pack,Neuromuscular Re-ed, Coordination Retraining,Manual Therapy Weight Bearing Status Weight Bearing Status Non-Weight Bearing Allowed Weight Bearing Amount (enter % LLE NWB or #) (%) Recommendations To Nursing Amount of Assist Needed Standby Assistance Discharge Recommendations PT Discharge Recommendations Home with Assistance,Home Health Transportation Needs at Discharge Private Vehicle
--- NOTE | 2024-03-04 14:19 | CM.DPNOTE ---
DC Note Discharge order in. Placed call to [facility]; fax yesterday did not go through, this AIRCRAFT COMMUNICATOR's error. Faxed clinical packet and IV abx order again to [facility]. Out of pocket quote is approximate and likely would be up to $500 for nursing services, possibly only $100 for the ertapenem. According to Dr Martinez, DR Rose has said she can help this family arrange home infusion IF they start as outpatient infusion and change their minds. Lengthy conversation in room with NATO Barron, patient and her Feliciano about discharge options for Q24 IV 1 g ertapenem x 6 weeks. Based on the amount of repetition needed, this AIRCRAFT COMMUNICATOR becoming concerned that patient and spouse are not good candidates for home infusion related to their short term memory loss. Inevitably, patient/spouse agree to get patient to daily for her IV abx. Wednesday's dose will be on the acute care floor. Wednesday, patient will need to get to the [facility] for her infusion. Referral sent to [facility] per patient/spouse preference. Completed and signed F2F and HH order with face sheet, H+P and DC Summary faxed to [facility] F [phone]. SOC 03/07/24 Faxed signed provider order form for outpatient infusion and face sheet to [facility], inpatient pharmacy [phone], [facility] infusion center F [phone] and provided original to CARTER Manzanares coordinator. Patient is on the schedule tomorrow on the ACU for 1100 Updated RN with above. Plan: Discharge home w/spouse and family, outpatient infusion through [facility], family to transport, [facility] RN/PT/OT/CEMENT FINISHER. ANABELLA
== END 2024-03-04 14:54 | disposition home health service (06) | DRG 464 ==
PROVIDERS: Admitting Provider Orthopaedic Surgery Foot and Ankle Surgery; PCP Family Medicine; Referring Provider Orthopaedic Surgery Foot and Ankle Surgery; Visit Provider Orthopaedic Surgery Foot and Ankle Surgery
PROC: 0JBP0ZZ Excision of Left Lower Leg Subcutaneous Tissue and Fascia, Open Approach (ICD-10-PCS; principal; 2024-03-01 15:45)
DX: T84.59XA Infection and inflammatory reaction due to other internal joint prosthesis, initial encounter (principal); D62 Acute posthemorrhagic anemia; T81.31XA Disruption of external operation (surgical) wound, not elsewhere classified, initial encounter; I96 Gangrene, not elsewhere classified; Z16.19 Resistance to other specified beta lactam antibiotics; D84.821 Immunodeficiency due to drugs; E03.9 Hypothyroidism, unspecified; J45.909 Unspecified asthma, uncomplicated; B96.89 Other specified bacterial agents as the cause of diseases classified elsewhere; S82.892D Other fracture of left lower leg, subsequent encounter for closed fracture with routine healing; W18.30XD Fall on same level, unspecified, subsequent encounter; Z87.891 Personal history of nicotine dependence; Z79.69 Long term (current) use of other immunomodulators and immunosuppressants
CPT/HCPCS: 36415; 36569; 36592; 80048; 80202; 83735; 84100; 85025; 85651; 86140; 87040; 87070; 87075; 87077; 87176; 87186; 87205; 87801; 97161; 97530; J0171; J0692; J1100; J1170; J1335; J1642; J1650; J2250; J2405; J2704; J3010

== ENCOUNTER 2024-03-24 21:46 | Emergency (ER) | payer MEDICARE, OTHER, SELFPAY ==
[2024-03-24 21:48] VITALS: BP 191/78; PULSE 70; RESP 14; TEMP 36.4; O2SAT 97; BMI 25.6
--- NOTE | 2024-03-24 22:33 | ED.RECABL ---
HPI - Recheck/Abnormal Lab/Rx General Chief Complaint: Recheck/Abnormal Lab/Rx Stated Complaint: issues with pick line Time Seen by Provider: 03/24/24 22:15 Source: patient Mode of arrival: Wheelchair History of Present Illness HPI narrative: 74yoF presents for occluded picc line. Placed for hardware infection. Flushed earlier this morning, however this evening was unable to be flushed. Related Data Home Medications Medication Instructions Recorded Confirmed celecoxib 200 mg capsule 200 mg PO BIDCC #0 caps 06/17/16 02/29/24 liothyronine 5 mcg tablet (Cytomel) 5 mcg PO QDAY #0 tabs 06/17/16 02/29/24 baclofen 20 mg tablet 20 mg PO DAILY 07/30/22 03/01/24 hydroxychloroquine 200 mg tablet 200 mg PO DAILY ##0 07/30/22 02/29/24 levothyroxine 75 mcg tablet 75 mcg PO DAILY 07/30/22 02/29/24 oxybutynin chloride 5 mg 5 mg PO DAILY 02/16/24 02/29/24 tablet,extended release 24 hr albuterol sulfate 90 mcg/actuation 1 puff inhalation Q4-6H PRN 03/01/24 03/01/24 aerosol inhaler (Ventolin HFA) Shortness Of Breath estradiol 0.01% (0.1 mg/gram) 1 g vaginal DAILY 03/01/24 03/01/24 vaginal cream pregabalin 100 mg capsule 100 mg PO BEDTIME 03/01/24 03/01/24 Previous Rx's Medication Instructions Recorded aspirin 325 mg tablet 325 mg PO DAILY #90 tabs 03/04/24 hydromorphone 2 mg tablet 0.5 mg (1/4 x 2 mg) PO Q4HR PRN 03/04/24 Pain, Severe (7-10) #20 tabs pregabalin 50 mg capsule (Lyrica) 50 mg PO DAILY #30 caps 03/04/24 Allergies Allergy/AdvReac Type Severity Reaction Status Date / Time Sutures Allergy Intermediate Anaphylaxis Verified 03/01/24 15:58 adhesive [ADHESIVE] Allergy Unknown RASH Verified 02/20/24 21:02 rofecoxib [From VIOXX] Allergy Unknown MY LEGS Verified 02/20/24 21:02 FELT LIKE THEY COULDNT MOVE Sulfa (Sulfonamide Allergy Unknown RASH Verified 02/20/24 21:02 Antibiotics) [SULFA (SULFONAMIDE ANTIBIOTICS)] oxycodone AdvReac Severe Hallucinati Verified 02/29/24 19:23 ng Patient History Medical History Sepsis (2021) Asthma Anesthesia complication Hypothyroidism Mycoplasma infection Surgical History History of carpal tunnel release of both wrists (1979) History of hysterectomy History of back surgery Social History household members: spouse and children Smoking Status: Former smoker alcohol intake: former Smoking Status: Former smoker alcohol intake frequency: 0-2 drinks per day Substance Use Type: does not use Exam Initial Vital Signs Initial Vital Signs: Vital Signs Temperature 97.5 F L 03/24/24 21:48 Pulse Rate 70 03/24/24 21:48 Respiratory Rate 14 03/24/24 21:48 Blood Pressure 191/78 H 03/24/24 21:48 Pulse Oximetry 97 03/24/24 21:48 Oxygen Delivery Method Room Air 03/24/24 21:48 Const: Awake, alert, no acute distress, nontoxic appearing MSK: L foot in boot Skin: Warm, Dry, intact, PICC line in LUE with clean bandage Neuro: AO x3, CN II-XII grossly intact, moves all extremities Course Vital Signs Vital signs: Vital Signs - 8 hr 03/24/24 21:48 Temperature 97.5 F L Pulse Rate 70 Respiratory Rate 14 Blood Pressure 191/78 H Pulse Oximetry 97 Oxygen Delivery Method Room Air MDM - Recheck/Abnormal Lab/Rx MDM Narrative Medical decision making narrative: Possible occluded PICC line. Nursing staff was able to change the autoclave and were subsequently able to flush the line. Discharge Plan Departure Patient Disposition: Home Clinical Impression: Encounter for peripherally inserted central catheter (PICC) flush Instructions: Peripherally Inserted Central Catheter Activity Restrictions/Additional Instructions: Continue all meds as previously prescribed. Follow up as usual with your specialists. Prescriptions: No Action celecoxib 200 MG capsule 200 mg PO BIDCC Qty: 0 liothyronine [Cytomel] 5 MCG tablet 5 mcg PO QDAY Qty: 0 estradiol 0.01 % (0.1 mg/gram) cream 1 g vaginal DAILY pregabalin 100 mg capsule 100 mg PO BEDTIME albuterol sulfate [Ventolin HFA] 90 mcg/actuation Hfa Aerosol Inhaler 1 puff INHALATION Q4-6H PRN (Reason: Shortness Of Breath) hydromorphone 2 mg tablet 0.5 mg PO Q4HR PRN (Reason: Pain, Severe (7-10)) Qty: 20 0RF pregabalin [Lyrica] 50 mg capsule 50 mg PO DAILY Qty: 30 0RF aspirin 325 mg tablet 325 mg PO DAILY Qty: 90 0RF baclofen 20 mg tablet 20 mg PO DAILY Patient Comments: take 1 tablet by mouth once daily if needed levothyroxine 75 mcg tablet 75 mcg PO DAILY Patient Comments: TAKE 1 TABLET BY MOUTH ONCE DAILY FOR 6 DAYS, THEN TAKE 1/2 TABLET ON SUNDAYS Rx Instructions: Sun takes 37.5mcg and takes 75mcg all other days hydroxychloroquine 200 mg Tablet 200 mg PO DAILY Qty: 0 oxybutynin chloride 5 mg tablet extended release 24hr 5 mg PO DAILY Rx Instructions: takes at 1800 Referrals: Althea Lion MD [Primary Care Provider] - Stand Alone Forms: Patient Portal/API
== END 2024-03-24 22:49 | disposition home or self-care (01) ==
PROVIDERS: Emergency Provider Emergency Medicine; PCP Family Medicine
DX: T82.9XXA Unspecified complication of cardiac and vascular prosthetic device, implant and graft, initial encounter (principal)
CPT/HCPCS: 99281; 99283

== ENCOUNTER → 2024-05-12 13:27 | Outpatient (CLI) | payer MEDICARE, OTHER, SELFPAY ==
[2024-05-12 14:05] LABS: Hematocrit 37.2 % (36-46); Hemoglobin 12.1 g/dL (12.0-16.0); Mean Corpuscular HGB Conc 32.5 % (30-36); Mean Corpuscular Hemoglobin 29.1 PG (26-34); Mean Corpuscular Volume 89.4 fL (80-100); Platelet Count 117 X10^3/uL (150-400); Red Blood Cell Count 4.16 X10^6/uL (4.0-5.2); Red Cell Distribution Width 14.5 % (11.6-14.8); White Blood Cell Count 4.3 X10^3/uL (4.5-11.0)
== END ==
PROVIDERS: PCP Family Medicine; Referring Provider Internal Medicine Infectious Disease; Visit Provider Internal Medicine Infectious Disease
DX: D69.6 Thrombocytopenia, unspecified (principal)
CPT/HCPCS: 36415; 85027

== ENCOUNTER → 2024-05-24 12:09 | Outpatient (CLI) | payer MEDICARE, OTHER, SELFPAY ==
[2024-05-24 14:21] LABS: Add Manual Diff / Slide Review NO; Basophils Absolute Auto 0 /uL (0-100); Basophils Percent Auto 0.7 % (0-2); Eosinophils Absolute Auto 100 /uL (0-450); Eosinophils Percent Auto 2.3 % (2-4); Hemoglobin 11.8 g/dL (12.0-16.0); Lymphocytes Absolute Auto 1600 /uL (1100-4500); Lymphocytes Percent Auto 35.9 % (25-40); Mean Corpuscular HGB Conc 32.6 % (30-36); Mean Corpuscular Hemoglobin 28.7 PG (26-34); Monocytes Absolute Auto 300 /uL (0-900); Monocytes Percent Auto 7.4 % (3-14); Neutrophils Absolute Auto 2400 /uL (1500-7000); Neutrophils Percent Auto 53.7 % (50-75); Platelet Count 130 X10^3/uL (150-400); Red Blood Cell Count 4.09 X10^6/uL (4.0-5.2); Red Cell Distribution Width 14.3 % (11.6-14.8); White Blood Cell Count 4.5 X10^3/uL (4.5-11.0)
== END ==
PROVIDERS: PCP Family Medicine; Referring Provider Internal Medicine Infectious Disease; Visit Provider Internal Medicine Infectious Disease
DX: D69.6 Thrombocytopenia, unspecified (principal)
CPT/HCPCS: 36415; 85025

== ENCOUNTER 2024-05-31 10:25 | Day surgery (SDC) | payer MEDICARE, OTHER, SELFPAY ==
[2024-05-29 10:14] VITALS: BMI 28.0
[2024-05-31] VITALS (7 sets, daily range): BP systolic 149–197; BP diastolic 75–97; PULSE 64–75; RESP 12–18; TEMP 36.3–36.6; O2SAT 94–98; BMI 28.0
[2024-05-31] MEDS: LACTATED RINGERS 1,000 ML 42 ML IV (11:19)
[2024-05-31] MEDS: ACETAMINOPHEN 325 MG TABLET 650 MG PO (11:20)
--- NOTE | 2024-05-31 11:21 | PM.PREOP ---
Pre-operative Note Interval Note History & Physical reviewed/Exam performed by Physician: Yes Changes to H&P: No
--- NOTE | 2024-05-31 11:32 | SUR.PREOP ---
ANESTHESIA STILL AT BEDSIDE. PT HAS MANY QUESTION ABOUT MEMORRY LOSS
[2024-05-31] MEDS: CEFAZOLIN 2 GM/100 ML PREMIX 100 ML IV (11:48)
--- NOTE | 2024-05-31 12:04 | SUR.OPER ---
Supine on padded OR bed, head on pillow, arms secured on padded arm boards at <90 degrees abduction, legs uncrossed, safety belt at thigh, tape over blanket over lower legs.
[2024-05-31] MEDS: BUPIVACAINE 0.25% (PF) 30 ML, EPINEPHrine 0.15 MG INJ (12:35)
--- NOTE | 2024-05-31 13:05 | PM.OP.1 ---
Operative Date/Time/Diagnoses Date of procedure: 05/31/24 Time of procedure: 13:05 Pre-op diagnosis: Sequela closed trimalleolar ankle fracture left , hardware complicating wound infection Painful orthopedic hardware Post-op diagnosis: same Procedure & Clinicians Procedure: Removal implant hardware left ankle medial and lateral CPT code 28178 Same procedure as scheduled: Yes Indications: The patient is a 74-year-old female that had a ankle fracture treated with open reduction internal fixation this was complicated by deep infection. She is completed her treatment with IV antibiotics and due to the nature of the organism was indicated for staged hardware removal of the medial and lateral hardware as part of the infection eradication protocol. She is healed her fractures in his eligible for hardware removal. The risks and benefits of the procedure have been discussed with the patient and given the opportunity to ask questions. The risks of surgery include but are not limited to infection, malunion, nonunion, persistence of pain, damage to nerves and blood vessels, posttraumatic arthritis, DVT, PE, cardiopulmonary complications and . The patient expressed a thorough understanding of the risks and benefits of surgery and has elected to proceed. Consent was signed in the office Surgeon: Jill Khalil Click Yes if Unassisted: Yes Anesthesia Type: General and Local Operative Notes Findings: Healed ankle fracture intact hardware. No purulence or signs of infection. Complete hardware removal was completed plate and screws laterally as well as syndesmotic screw and 18 gauge wire screw and K-wires for the cerclage apparatus medially. X-rays confirmed appropriate complete hardware removal and stability under stress testing including external rotation stress Closure Type: primary Specimen(s): other (Deep tissues sent for culture) Estimated Blood Loss (mL): 10 Blood products transfused: none Tourniquet time (min): 29 Procedure in detail: Patient was seen in the preoperative area the site of surgery was marked informed consent confirmed this was the left ankle. The patient was brought back to the operating room by the anesthesia team positioned supine on operative table. Anesthesia was administered. The patient was prepped and draped in standard sterile fashion with a formal time-out procedure was performed confirming the patient's side and site of surgery and presence of informed consent. Were in agreement. Attention was turned to the left ankle Esmarch was used for exsanguination the tourniquet raised on the thigh to 250 mm of mercury. Attention was turned 1st to the lateral incision this was reopened through the skin subcutaneous tissues down to the level of the plate plate was dissected out and the screws were removed. The syndesmotic screw was loose there was no other hardware loosening. Five screws in the plate were removed rongeur was used to remove any fibrous bony prominences as well as deep tissue was sent for culture. Wound was then irrigated and closed in layers with 2-0 Vicryl 4-0 Monocryl and 3-0 nylon suture. Attention was then turned medially and a separate incision was opened along the medial ankle through the previous scar this was taken down through skin subcutaneous tissue to the level of the hardware with the medial malleolus. The cerclage wire construct was dissected out and the wire cutters were used for the cerclage wire the screwdriver was used to remove the screw and washer and wire drivers for the K-wires. Complete hardware removal was performed and intraoperative fluoroscopy confirmed this as well as stability of the ankle. Bony prominences were rongeured down the wound was irrigated and closed with 2-0 Vicryl 4-0 Monocryl and 3-0 nylon suture. 0.25% Marcaine with epinephrine was injected for local anesthesia. A soft dressing was applied with Xeroform gauze Webril and an Luis Felipe wrap. The patient was woken from anesthesia and taken to recovery room in good condition there were no immediate complications from this procedure. Counts were correct. Complications: none Post-operative Condition: stable Disposition: PACU Plan for aftercare: Weightbear as tolerated in the boot, brace or shoe. Range of motion as tolerated. Keep dressing clean dry and intact until follow up in the clinic. Sutures will remain in place a minimum of 2 weeks. Aspirin for DVT prophylaxis while using a boot.
[2024-05-31] MEDS: hydrOXYzine 50 MG/ML INJ 25 MG IM (13:07)
[2024-05-31] MEDS: HYDROCODONE/ACET 5/325 TABLET 1 TAB PO ×2 (13:07→13:41)
== END 2024-05-31 14:50 | disposition home or self-care (01) ==
PROVIDERS: PCP Family Medicine; Referring Provider Family Medicine; Visit Provider Orthopaedic Surgery Foot and Ankle Surgery
PROC: (CPT 27704; principal; 2024-05-31 11:45)
DX: T84.7XXA Infection and inflammatory reaction due to other internal orthopedic prosthetic devices, implants and grafts, initial encounter (principal); M96.830 Postprocedural hemorrhage of a musculoskeletal structure following a musculoskeletal system procedure
CPT/HCPCS: 27704; 87070; 87075; 87205; 99281; 99283; J0171; J0690; J1100; J2405; J2704; J3010; J3410

== ENCOUNTER 2024-05-31 20:51 | Emergency (ER) | payer MEDICARE, OTHER, SELFPAY ==
[2024-05-31 21:00] VITALS: BP 187/85; PULSE 79; RESP 18; TEMP 36.2; O2SAT 98; BMI 28.5
--- NOTE | 2024-05-31 23:09 | ED.RECABL ---
HPI - Recheck/Abnormal Lab/Rx General Chief Complaint: Recheck/Abnormal Lab/Rx Stated Complaint: lt ankle surgery, site still bleeding Time Seen by Provider: 05/31/24 21:37 Source: patient Mode of arrival: Ambulatory History of Present Illness HPI narrative: 74-year-old female with postoperative left ankle surgical wound site bleeding, had hardware removal procedure earlier today a proximally 3:[address] Carrizales, sutures intact, Xeroform dressing, seemed to be draining through the wound through the day today, no injury reported. No other areas of bleeding. Related Data Home Medications Medication Instructions Recorded Confirmed celecoxib 200 mg capsule 200 mg PO BIDCC #0 caps 06/17/16 05/31/24 liothyronine 5 mcg tablet (Cytomel) 5 mcg PO QDAY #0 tabs 06/17/16 02/29/24 baclofen 20 mg tablet 20 mg PO DAILY 07/30/22 05/31/24 hydroxychloroquine 200 mg tablet 200 mg PO DAILY ##0 07/30/22 02/29/24 levothyroxine 75 mcg tablet 75 mcg PO DAILY 07/30/22 05/31/24 oxybutynin chloride 5 mg 5 mg PO DAILY 02/16/24 05/31/24 tablet,extended release 24 hr albuterol sulfate 90 mcg/actuation 1 puff inhalation Q4-6H PRN 03/01/24 05/31/24 aerosol inhaler (Ventolin HFA) Shortness Of Breath estradiol 0.01% (0.1 mg/gram) 1 g vaginal DAILY 03/01/24 05/31/24 vaginal cream pregabalin 100 mg capsule 100 mg PO BEDTIME 03/01/24 03/01/24 hydroxychloroquine 200 mg tablet 200 mg PO DAILY 05/31/24 05/31/24 Previous Rx's Medication Instructions Recorded hydromorphone 2 mg tablet 0.5 mg (1/4 x 2 mg) PO Q4HR PRN 03/04/24 Pain, Severe (7-10) #20 tabs pregabalin 50 mg capsule (Lyrica) 50 mg PO DAILY #30 caps 03/04/24 Allergies Allergy/AdvReac Type Severity Reaction Status Date / Time Sutures Allergy Intermediate Anaphylaxis Verified 03/01/24 15:58 adhesive [ADHESIVE] Allergy Unknown RASH Verified 02/20/24 21:02 rofecoxib [From VIOXX] Allergy Unknown MY LEGS Verified 02/20/24 21:02 FELT LIKE THEY COULDNT MOVE Sulfa (Sulfonamide Allergy Unknown RASH Verified 02/20/24 21:02 Antibiotics) [SULFA (SULFONAMIDE ANTIBIOTICS)] oxycodone AdvReac Severe Hallucinati Verified 02/29/24 19:23 ng Review of Systems Review of Systems Narrative: see HPI Patient History Medical History (Updated 05/31/24 @ 23:26 by Abel Conti MD) History of transfusion Thyroid disease Fibromyalgia Annmarie-Marin infection Raynaud's disease Osteoarthritis Sepsis (2021) Asthma Anesthesia complication Hypothyroidism Mycoplasma infection Surgical History (Updated 05/31/24 @ 23:26 by Abel Conti MD) History of incision and drainage (03/11/24) History of open reduction and internal fixation (ORIF) procedure (02/16/24) History of lumbar spinal fusion History of carpal tunnel release of both wrists (1979) History of hysterectomy History of back surgery Social History household members: spouse and children Smoking Status: Former smoker alcohol intake: former Smoking Status: Former smoker alcohol intake frequency: 0-2 drinks per day Substance Use Type: does not use Exam Narrative Exam Narrative: GENERAL: Well-developed patient, in mild distress. HEAD: Atraumatic. Normocephalic. EYES: Pupils equal round and reactive. Extraocular motions intact. No scleral icterus. No injection or drainage. ENT: Nose without bleeding, purulent drainage. Throat without erythema, tonsillar hypertrophy or exudate. Airway patent. NECK: Trachea midline. Non tender CARDIOVASCULAR: Regular rate and rhythm without murmurs, gallops, or rubs. RESPIRATORY: Clear to auscultation. Breath sounds equal bilaterally. No wheezes, rales, or rhonchi. GASTROINTESTINAL: Abdomen soft, non-tender, nondistended. EXTREMITIES: Left ankle surgery with medial and lateral vertical incisions with sutures intact, no active bleeding on removal of dressing that has some small amounts of bright red blood stain, I could not express any fluid from the wound margin, well approximated. Good DP pulse. Good perfusion toes, brisk cap refill, warm. BACK: Nontender without deformity or crepitance. No flank tenderness. NEURO: AOx3. Nonfocal motor neuro exam SKIN: No rash or erythema of visible areas Initial Vital Signs Initial Vital Signs: Vital Signs Temperature 97.2 F L 05/31/24 21:00 Pulse Rate 79 05/31/24 21:00 Respiratory Rate 18 05/31/24 21:00 Blood Pressure 187/85 H 05/31/24 21:00 Pulse Oximetry 98 05/31/24 21:00 Oxygen Delivery Method Room Air 05/31/24 21:00 Course Vital Signs Vital signs: Vital Signs - 8 hr 05/31/24 21:00 05/31/24 23:38 Temperature 97.2 F L 97.7 F Pulse Rate 79 76 Respiratory Rate 18 16 Blood Pressure 187/85 H 173/73 H Pulse Oximetry 98 99 Oxygen Delivery Method Room Air Room Air MDM - Recheck/Abnormal Lab/Rx MDM Narrative Medical decision making narrative: 74-year-old female status post hardware removal left ankle surgery earlier today, with surgical wound site bleeding by report, scant amount bright red blood on dressing that was removed, no expressible hematoma or other fluid from well-approximated wound edge, seems well perfused. Patient and in agreement. New dressing applied with Xeroform over suture sites, febrile absorptive wrap, and Coban compression. Follow up with Dr. Brower as planned. Could consider calling their office tomorrow if there is recurring problems with bleeding. No other interventions at this time. Home with family. Discharge Plan Departure Patient Disposition: Home Clinical Impression: Postoperative wound hemorrhage, Status post hardware removal Activity Restrictions/Additional Instructions: Hardware removal left ankle, still taking antibiotics from prior wound infection, post surgery some bleeding from the wound site, on my examination there was no active bleeding, I did try to express hematoma or other fluid from the wound edge, which seemed well approximated, no fluid was available for expression. New dressing was applied. Follow up with Orthopedic surgery as planned. If persisting problems with bleeding consider calling their office tomorrow, but for now no further wound interventions. Return earlier to this/nearest emergency department for any change worsening symptoms or concerns prior Prescriptions: No Action celecoxib 200 MG capsule 200 mg PO BIDCC Qty: 0 liothyronine [Cytomel] 5 MCG tablet 5 mcg PO QDAY Qty: 0 estradiol 0.01 % (0.1 mg/gram) cream 1 g vaginal DAILY pregabalin 100 mg capsule 100 mg PO BEDTIME albuterol sulfate [Ventolin HFA] 90 mcg/actuation Hfa Aerosol Inhaler 1 puff INHALATION Q4-6H PRN (Reason: Shortness Of Breath) hydromorphone 2 mg tablet 0.5 mg PO Q4HR PRN (Reason: Pain, Severe (7-10)) Qty: 20 0RF pregabalin [Lyrica] 50 mg capsule 50 mg PO DAILY Qty: 30 0RF hydroxychloroquine 200 mg tablet 200 mg PO DAILY baclofen 20 mg tablet 20 mg PO DAILY Patient Comments: take 1 tablet by mouth once daily if needed levothyroxine 75 mcg tablet 75 mcg PO DAILY Patient Comments: TAKE 1 TABLET BY MOUTH ONCE DAILY FOR 6 DAYS, THEN TAKE 1/2 TABLET ON SUNDAYS Rx Instructions: Sun takes 37.5mcg and takes 75mcg all other days hydroxychloroquine 200 mg Tablet 200 mg PO DAILY Qty: 0 oxybutynin chloride 5 mg tablet extended release 24hr 5 mg PO DAILY Rx Instructions: takes at 1800 Referrals: Jill Khalil MD [Physician] - Althea Lion MD [Primary Care Provider] - Stand Alone Forms: Patient Portal/API
[2024-05-31 23:38] VITALS: BP 173/73; PULSE 76; RESP 16; TEMP 36.5; O2SAT 99
== END 2024-05-31 22:35 | disposition home or self-care (01) ==
PROVIDERS: Emergency Provider Emergency Medicine; PCP Family Medicine
DX: M96.830 Postprocedural hemorrhage of a musculoskeletal structure following a musculoskeletal system procedure (principal)
CPT/HCPCS: 99281